=== PATIENT | male | born 1980 | race African-American/Black ===

== ENCOUNTER → 2017-12-09 | Day surgery (SDC) | payer OTHER ==
[~2017-12-09] MED LIST: FENTANYL CITRATE/PF 100MCG/2 ML INJ ONE; LIDOCAINE HCL 2% LOCAL INJ 5 ML SDV VIAL INJ ONE; PROPOFOL IV EMULSION 10 MG/ML 50 ML VIAL ONE
--- OUTSIDE RECORDS SUMMARY | 2017-12-09 11:19 | XMS REPORT | Clinical Summary ---
Author Author [facility] Organization [facility] [facility] Address Unknown Phone Unavailable Care Team Providers Care Cleaner Name Role Phone Faheem Staples MD PCP Allergies Active Allergy Reactions Severity Noted Date Comments Iodine 01/19/2017 Butorphanol Tartrate 05/09/2017 Current Medications Prescription Sig. Disp. Refills Start End Date Status Date traMADol (ULTRAM) 50 mg Take 1 tablet (50 mg 10 tablet 0 01/20/20 tablet total) by mouth every 6 17 17 (six) hours as needed for moderate pain for up to 5 days. cyclobenzaprine Take 1 tablet (10 mg 10 tablet 0 02/29/20 03/05/20 (FLEXERIL) 10 mg tablet total) by mouth 2 (two) 17 17 times a day as needed for muscle spasms for up to 5 days. ibuprofen (ADVIL,MOTRIN) Take 1 tablet (600 mg 15 tablet 0 02/29/20 03/05/20 600 MG tablet total) by mouth every 6 17 17 (six) hours as needed for mild pain for up to 5 days. ysdxxqejgs-kiurorn-nuyskc Take 1 capsule by mouth 20 capsule 0 04/18/20 ne (FIORINAL) 50-325-40 every 4 (four) hours as 17 17 mg per capsule needed for headaches for up to 5 days. clonAZEPAM (KlonoPIN) 0.5 Take 0.5 tablets (0.25 mg 10 tablet 0 07/27/20 MG tablet total) by mouth 2 (two) 17 17 times a day as needed for seizures for up to 5 days. ibuprofen (ADVIL,MOTRIN) Take 1 tablet (600 mg 40 tablet 0 09/27/20 10/27/19 600 MG tablet total) by mouth every 6 17 18 (six) hours as needed for mild pain for up to 30 days. azithromycin (ZITHROMAX) Take 250 mg by mouth 09/28/20 10/03/20 250 MG tablet daily. Take 2 tablets the 17 17 first day, then 1 tablet daily for 4 days. albuterol (PROAIR Inhale 1-2 puffs every 6 1 Inhaler 0 09/29/20 HFA,PROVENTIL (six) hours as needed for 17 18 HFA,VENTOLIN HFA) 90 wheezing for up to 30 mcg/actuation inhaler days. Active Problems Not on file Encounters Date Type Specialty Care Team Description 09/29/2017 Emergency Emergency Medicine Asim Dias, Difficulty breathing (Primary Dx) 09/27/2017 Emergency Emergency Medicine Triston Georges MD Pharyngitis, unspecified etiology (Primary Dx) 07/22/2017 Emergency Emergency Medicine Blaire Varghese, Dyspnea, unspecified type (Primary Dx) 06/07/2017 Emergency Emergency Medicine Kai Torres MD Zhang, Zhou, MD 05/09/2017 Emergency Emergency Medicine Stew León MD Palpitations (Primary Dx) 04/12/2017 Emergency Emergency Medicine Choco Finch, IRMA-Ignacia Headache, unspecified - Rolando eKy headache type (Primary 04/13/2017 MD Elva Dx) 02/28/2017 Emergency Emergency Medicine Kody Cloud MD Acute left-sided thoracic back pain (Primary Dx) 01/19/2017 Emergency Emergency Medicine Rolando Key Chest pain, unspecified MD Elva type (Primary Dx) after 12/08/2016 Social History Tobacco Use Types Packs/Day Years Used Date Former Smoker Cigarettes 8 Smokeless Tobacco: Never Used Alcohol Use Drinks/Week oz/Week Comments No Sex Assigned at Date Recorded Not on file Last Filed Vital Signs Vital Sign Reading Time Taken Blood Pressure 115/73 09/29/2017 3:00 AM TOOLROOM ATTENDANT Pulse 74 09/29/2017 3:00 AM TOOLROOM ATTENDANT Temperature 36.9 C (98.4 F) 09/29/2017 2:19 AM TOOLROOM ATTENDANT Respiratory Rate 16 09/29/2017 3:00 AM TOOLROOM ATTENDANT Oxygen Saturation 98% 09/29/2017 3:00 AM TOOLROOM ATTENDANT Inhaled Oxygen - - Concentration Weight 74.4 kg (164 lb) 09/27/2017 4:45 AM TOOLROOM ATTENDANT Height 172.7 cm (5' 8") 09/29/2017 2:19 AM TOOLROOM ATTENDANT Body Mass Index 24.94 09/27/2017 4:45 AM TOOLROOM ATTENDANT Plan of Treatment Health Maintenance Due Date Last Done Comments INFLUENZA VACCINE 05/06/2017 Results * ECG 12 lead (09/29/2017 2:21 AM) Only the most recent of 5 results within the time period is included. Component Value Ref Range Ventricular rate 90 Atrial rate 90 ME interval 174 QRSD interval 86 QT interval 344 QTC interval 420 P axis 1 73 QRS axis 1 53 T wave axis 44 EKG impression Normal sinus rhythm-Normal ECG-No previous ECGs available- Specimen Performing Laboratory [facility] [address] [place] [address] * ECG ED Preliminary Interpretation - NOT AN ORDER (07/22/2017 2:44 PM) Only the most recent of 3 results within the time period is included. Narrative Blaire Varghese DO 07/22/20172:44 PM ECG ED Preliminary Interpretation - Not an Order Performed by: BLAIRE VARGHESE Authorized by: BLAIRE VARGHESE ECG reviewed by ED Physician in the absence of a purchasing/receiving: yes Interpretation: Interpretation: normal Rate: ECG rate:89 ECG rate assessment: normal Rhythm: Rhythm: sinus rhythm Ectopy: Ectopy: none QRS: QRS axis:Normal Conduction: Conduction: normal ST segments: ST segments:Non-specific T waves: T waves: non-specific * XR Chest 2 Vw (05/09/2017 7:29 AM) Specimen Performing Laboratory [facility] [address] [place] [address] Narrative EXAMINATION: XR CHEST 2 VW CLINICAL HISTORY: Chest pain COMPARISON: Portable chest, obtained on 04/13/2017 at 0043 hours. FINDINGS: Cardiac and mediastinal silhouettes are within normal limits. There is no vascular congestion, pleural fluid, infiltrate or pneumothorax. Skeletal structures are normal. IMPRESSION: Normal chest. [id number] Procedure Note Hm Interface, Radiology Results Incoming - 05/09/2017 7:39 AM CDT EXAMINATION: XR CHEST 2 VW CLINICAL HISTORY: Chest pain COMPARISON: Portable chest, obtained on 04/13/2017 at 0043 hours. FINDINGS: Cardiac and mediastinal silhouettes are within normal limits. There is no vascular congestion, pleural fluid, infiltrate or pneumothorax. Skeletal structures are normal. IMPRESSION: Normal chest. [id number] * Influenza antigen (05/09/2017 7:03 AM) Component Value Ref Range Influenza antigen Negative for Influenza A/B antigen. Comment: Specimen Information Specimen Source: Nares Specimen Site: Right and left lobes Specimen Performing Laboratory Nares - Right and left [facility] DEPARTMENT OF PATHOLOGY AND GENOMIC MED[facility] [id number] [place] [address] [place] [address] * Estimated GFR (05/09/2017 7:00 AM) Only the most recent of 3 results within the time period is included. Component Value Ref Range GFR Non Af Amer 69 mL/min/1.73 m2 GFR Af Amer 83 mL/min/1.73 m2 Comment: Chronic kidney disease: <60 mL/min/1.73m2 Kidney failure: <15 mL/min/1.73m2 The estimated GFR is calculated from the IDMS-traceable Modification of Diet in Renal Disease Equation. The accuracy of the calculation is poor when the creatinine is normal. Calculated values >90 mL/min/1.73m2 are not reported. This equation has not been validated in children (<18 years), women, the elderly (>70 years), or ethnic groups other than Caucasians and Americans. Specimen Performing Laboratory Plasma specimen [facility] PATHOLOGY AND [employer] [address] [place] [address] * Troponin (05/09/2017 7:00 AM) Only the most recent of 3 results within the time period is included. Component Value Ref Range Troponin <0.300 0.000 - 0.300 ng/mL Comment: 0.30 - 1.49 ng/ml May indicate increased risk of acute coronary syndrome. >=1.5 ng/ml Consistent with acute myocardial infarction. The diagnostic value of a single normal or non-diagnostic result is questionable. Serial samples at 2-6 hour intervals are required to rule out acute myocardial injury. Specimen Performing Laboratory Plasma specimen [facility] DEPARTMENT PATHOLOGY AND [employer] [facility] [id number] [place] [address] [place] [address] * CBC with platelet and differential (05/09/2017 7:00 AM) Only the most recent of 3 results within the time period is included. Component Value Ref Range WBC 5.51 4.50 - 11.00 k/uL RBC 6.01 (H) 4.40 - 6.00 m/uL HGB 15.7 14.0 - 18.0 g/dL HCT 48.9 41.0 - 51.0 % MCV 81.4 (L) 82.0 - 100.0 fL MCH 26.1 (L) 27.0 - 34.0 pg MCHC 32.1 31.0 - 37.0 g/dL RDW - SD 39.1 37.0 - 55.0 fL MPV 10.5 8.8 - 13.2 fL Platelet count 261 150 - 400 k/uL Nucleated RBC 0.00 /100 WBC Neutrophils 42.7 39.0 - 69.0 % Lymphocytes 39.9 25.0 - 45.0 % Monocytes 12.5 (H) 0.0 - 10.0 % Eosinophils 4.2 0.0 - 5.0 % Basophils 0.5 0.0 - 1.0 % Immature granulocytes 0.2Comment: "Immature granulocytes" 0.0 - 1.0 % (promyelocytes, myelocytes, metamyelocytes) Specimen Performing Laboratory Blood [facility] DEPARTMENT OF PATHOLOGY AND GENOMIC MEDICINE [address] [place] [address] * Comprehensive metabolic panel (05/09/2017 7:00 AM) Only the most recent of 3 results within the time period is included. Component Value Ref Range Sodium 140 135 - 148 mEq/L Potassium 4.0 3.5 - 5.0 mEq/L Chloride 98 98 - 112 mEq/L CO2 26 24 - 31 mEq/L Anion gap 16 (H) 7 - 15 mEq/L Comment: Starting from January , anion gap calculation no longer incorporates potassium. Please note the change. BUN 16 6 - 20 mg/dL Creatinine 1.2 0.7 - 1.2 mg/dL Glucose 115 (H) 65 - 99 mg/dL Calcium 9.8 8.3 - 10.2 mg/dL Protein 8.4 (H) 6.3 - 8.3 g/dL Comment: [place] 4.6-7.0 g/dL 1 week 4.4-7.6 g/dL 7 months-1year 5.1-7.3 g/dL 1-2 years 5.6-7.5 g/dL >3 years 6.0-8.0 g/dL 18-150 6.3-8.3 g/dL Albumin 4.7 3.5 - 5.0 g/dL A/G ratio 1.3 0.7 - 3.8 Alkaline phosphatase 52 40 - 129 U/L AST 20 10 - 50 U/L ALT 14 5 - 50 U/L Total bilirubin 0.8 0.0 - 1.2 mg/dL Specimen Performing Laboratory Plasma specimen [facility] DEPARTMENT OF PATHOLOGY AND GENOMIC MEDICINE [address] [place] [address] * CT Head Wo Contrast (04/13/2017 1:07 AM) Specimen Performing Laboratory [facility] [address] [place] [address] Narrative EXAMINATION: CT HEAD WO CONTRAST CLINICAL HISTORY: headache COMPARISON:None. TECHNIQUE: Noncontrast enhanced images of the brain were obtained from the skull base to the vertex. Both soft tissue and bone reconstruction algorithms were performed. CT scans are performed using radiation dose reduction techniques (iterative reconstruction and/or automated exposure control). Technical factors are evaluated and adjusted to ensure appropriate moderation of exposure. Automated dose management technology is applied to adjust radiation exposure while achieving a diagnostic quality image. FINDINGS: The brain parenchyma is unremarkable. The hurtado-white matter differentiation is preserved. No evidence of acute intra or extra-axial hemorrhage, mass, mass effect or acute territorial infarction. There is no acute hydrocephalus. Basal cisterns are patent. No acute soft tissue hematoma or laceration. No skull fractures or aggressive bony lesions. Paranasal sinuses and mastoid air cells are clear. Orbits are normal. IMPRESSION: No acute intracranial abnormality identified. [facility]-[id number] Procedure Note Interface, Radiology Results Incoming - 04/13/2017 1:42 AM CDT EXAMINATION: CT HEAD WO CONTRAST CLINICAL HISTORY: headache COMPARISON: None. TECHNIQUE: Noncontrast enhanced images of the brain were obtained from the skull base to the vertex. Both soft tissue and bone reconstruction algorithms were performed. CT scans are performed using radiation dose reduction techniques (iterative reconstruction and/or automated exposure control). Technical factors are evaluated and adjusted to ensure appropriate moderation of exposure. Automated dose management technology is applied to adjust radiation exposure while achieving a diagnostic quality image. FINDINGS: The brain parenchyma is unremarkable. The hurtado-white matter differentiation is preserved. No evidence of acute intra or extra-axial hemorrhage, mass, mass effect or acute territorial infarction. There is no acute hydrocephalus. Basal cisterns are patent. No acute soft tissue hematoma or laceration. No skull fractures or aggressive bony lesions. Paranasal sinuses and mastoid air cells are clear. Orbits are normal. IMPRESSION: No acute intracranial abnormality identified. [facility]-[id number] * Urinalysis screen and microscopy, with reflex to culture (04/13/2017 1:00 AM) Only the most recent of 2 results within the time period is included. Component Value Ref Range Specimen site Clean catch Color, UA Yellow Appearance, UA Clear Specific gravity, UA 1.025 1.001 - 1.035 pH, UA 5.0 5.0 - 8.5 Protein, UA Negative Negative Glucose, UA Negative Negative Ketones, UA Negative Negative Bilirubin, UA Negative Negative Blood, UA Negative Negative Nitrite, UA Negative Negative Urobilinogen, UA 2.0 (A) <2.0 Leukocyte esterase, UA Negative Negative WBC, UA None seen 0 - 1 /HPF RBC, UA 0-5 0 - 1 /HPF Bacteria, UA None seen None seen Yeast, UA None seen Yeast with pseudohyphae, None seen UA Specimen Performing Laboratory Urine [facility] DEPARTMENT OF PATHOLOGY AND GENOMIC MEDICINE [address] [place] [address] * Urine drugs of abuse screen (04/13/2017 1:00 AM) Only the most recent of 2 results within the time period is included. Component Value Ref Range Amphetamine screen, urine Negative Methamphetamine screen, Negative urine Barbiturate screen, urine Negative Benzodiazepine screen, Negative urine Cocaine screen, urine Negative Methadone screen, urine Negative Opiates screen, urine Negative Phencyclidine screen, Negative urine Cannabinoid screen, urine Negative Tricyclic screen, urine Negative Comment: Drug screen minimum concentration of detectability Amphetamines 1000 ng/mL Methamphetamines 1000 ng/mL Barbiturates 300 ng/mL Benzodiazepines 300 ng/mL Cocaine 300 ng/mL Methadone 3 00 ng/mL Opiates 300 ng/mL Phencyclidine 25 ng/mL Cannabinoids 50 ng/mL Tricyclics 1000 ng/mL Negative test results indicates presumptive evidence of lack of clinically significant drug concentration in this urine specimen. Positive test results are presumptive evidence of clinically significant drug concentration in this urine specimen. Testing performed for medical purposes only. Specimen Performing Laboratory Urine [facility] DEPARTMENT OF PATHOLOGY AND GENOMIC MEDICINE [address] [place] [address] [place] [address] * Urine culture (04/13/2017 1:00 AM) Only the most recent of 2 results within the time period is included. Component Value Ref Range Urine culture SEE COMMENTComment: Bacteriuria screen negative. Specimen Performing Laboratory Urine [facility] DEPARTMENT OF PATHOLOGY AND GENOMIC MEDICINE [address] [place] [address] [place] [address] * XR Chest 1 Vw Portable (04/13/2017 12:48 AM) Only the most recent of 2 results within the time period is included. Specimen Performing Laboratory [facility] [address] [place] [address] Narrative EXAMINATION:XR CHEST 1 VW PORTABLE CLINICAL HISTORY:dizziness COMPARISON:01/19/2017 IMPRESSION: No consolidations, effusions, or pneumothorax.Cardiomediastinal silhouette is within normal limits.No acute osseous abnormalities. [id number] Procedure Note Hm Interface, Radiology Results Incoming - 04/13/2017 1:32 AM CDT EXAMINATION: XR CHEST 1 VW PORTABLE CLINICAL HISTORY: dizziness COMPARISON: 01/19/2017 IMPRESSION: No consolidations, effusions, or pneumothorax. Cardiomediastinal silhouette is within normal limits. No acute osseous abnormalities. [facility]-[id number] * Partial thromboplastin time, activated (04/13/2017 12:42 AM) Only the most recent of 2 results within the time period is included. Component Value Ref Range PTT 27.6 23.0 - 36.0 sec Comment: PTT therapeutic range for unfractionated heparin is 61.0-112.0 seconds which corresponds to Anti-Xa 0.3-0.7 U/ml. Specimen Performing Laboratory Blood [facility] DEPARTMENT OF PATHOLOGY AND [address] [address] * Prothrombin time with INR (04/13/2017 12:42 AM) Only the most recent of 2 results within the time period is included. Component Value Ref Range Prothrombin time 14.2 12.0 - 15.0 sec INR 1.1 Comment: The International Normalized Ratio (INR) is a therapeutic monitoring tool for patients who are stable on oral anticoagulant therapy. An INR of 2.0-3.0 is suggested for deep vein thrombosis/pulmonary embolism. Specimen Performing Laboratory Blood [facility] DEPARTMENT OF PATHOLOGY AND GENOMIC MEDICINE [address] [place] [address] [place] [address] * Magnesium level (04/13/2017 12:42 AM) Component Value Ref Range Magnesium 2.1 1.6 - 2.6 mg/dL Specimen Performing Laboratory Plasma specimen [facility] PATHOLOGY [address] [place] [address] * Creatine kinase, total (CPK) (04/13/2017 12:42 AM) Only the most recent of 2 results within the time period is included. Component Value Ref Range Creatine kinase 417 (H) 39 - 308 U/L Specimen Performing Laboratory Plasma specimen [address] [place] [address] * D-dimer (01/19/2017 9:46 PM) Component Value Ref Range D-dimer <0.27 0.00 - 0.40 ug/mL FEU Comment: Units are ug/ml Fibrinogen Equivalent Unit. When combined with low clinical probability, D-dimer results of less than 0.5 ug/ml FEU have a good negative predictive value in excluding PE or DVT. For D-dimer results greater than 0.5 ug/ml FEU further testing is indicated if PE or DVT is suspected clinically. Elevated D-dimer results have been reported in DVT, PE, and DIC cases and may indicate the presence of a clot. D-dimer results may be elevated due to old age, , inflammatory diseases, trauma, post-operative states, sepsis, and malignancies. Specimen Performing Laboratory Blood [facility] PATHOLOGY [address] [place] [address] * B natriuretic peptide (01/19/2017 9:27 PM) Component Value Ref Range BNP <5 0 - 100 pg/mL Specimen Performing Laboratory Blood [facility] DEPARTMENT PATHOLOGY AND [address] [place] [address] * Alcohol level, blood (01/19/2017 9:27 PM) Component Value Ref Range Alcohol None Detected mg/dL Comment: Normal None Detected Legal Intoxication in [place] 80 mg/dL (0.08%) - Whole Blood Toxic Concentration 200 mg/dL (0.2%) Potentially Fatal 350 - 500 mg/dL (0.35 - 0.5%) Alcohol percent None Detected % Specimen Performing Laboratory Plasma specimen [facility] DEPARTMENT PATHOLOGY [address] [place] [address] after 12/08/2016 Insurance Payer Benefit Subscriber ID Type Phone Address Plan / Group [employer] xxxxxxxxx HMO/PPO THCARE CHOICE/CHO ICE +
== END | disposition home or self-care (01) ==
LOC: OR 11:16
PROVIDERS: ATTEND Internal Medicine Gastroenterology
DX: K29.70 Gastritis, unspecified, without bleeding (principal); K44.9 Diaphragmatic hernia without obstruction or gangrene; K21.9 Gastro-esophageal reflux disease without esophagitis; K59.09 Other constipation; R63.4 Abnormal weight loss; R53.1 Weakness; F32.9 Major depressive disorder, single episode, unspecified; F41.9 Anxiety disorder, unspecified
CPT/HCPCS: 43239; J2001

== ENCOUNTER 2018-07-17 14:23 | Emergency (ER) | payer OTHER | END 2018-07-17 14:32 | disposition short-term general hospital (02) | LOC: FSED 14:23 | DX: K62.89 Other specified diseases of anus and rectum (principal) ==

== ENCOUNTER 2018-07-22 17:58 | Emergency (ER) | payer OTHER ==
[~2018-07-22] VITALS: Ht 177.8 cm; Wt 72.6 kg
--- OUTSIDE RECORDS SUMMARY | 2018-07-22 18:03 | XMS REPORT | Summary of Care ---
Author Organization Unknown Address Unknown Phone Unavailable Care Team Providers Care Garbage Collector Driver Name Role Phone NONE, None PCP Unavailable Encounter HQ Encntr_alias(FIN) [id number] Date(s): 04/03/15 - 04/03/15 [facility] [address] [place] [address]- Discharge Disposition: Non-Emergent Physician Attending: Rd Rodrigues MD Vital Signs Most recent to 1 oldest [Reference Range]: Height 172.72 cm (04/03/15 4:50 PM) Temperature Oral 97.9 DegF [96.4-99.1 DegF] (04/03/15 4:50 PM) Blood Pressure 120/78 mmHg [90-140/60-90 mmHg] (04/03/15 4:50 PM) Respiratory Rate 20 BRMIN [14-20 BRMIN] (04/03/15 4:50 PM) Peripheral Pulse 81 bpm Rate [60-100 bpm] (04/03/15 4:50 PM) Weight 81.818 kg (04/03/15 4:50 PM) Body Mass Index 27.43 m2 (04/03/15 4:50 PM) Problem List No data available for this section Allergies, Adverse Reactions, Alerts Substance Reaction Severity Status iodine Active Medications No data available for this section Results No data available for this section Immunizations No data available for this section Procedures Procedure Date Related Diagnosis Body Site Appendectomy Social History Social History Type Response Alcohol Never Smoking Status Former smoker; Exposure to Tobacco Smoke None; Cigarette Smoking Last 365 Days No; Reg Smoking Cessation Counseling No Assessment and Plan No data available for this section
--- OUTSIDE RECORDS SUMMARY | 2018-07-22 18:03 | XMS REPORT | Summary of Care ---
Author Author [facility] Organization [facility] Address Unknown Phone Unavailable Care Team Providers Care Technical Support Consultant Name Role Phone NONE, None PCP Unavailable Encounter [facility](ALLAN) [id number] Date(s): 11/17/15 - 11/17/15 [facility] [address] [place] [address]- Discharge Diagnosis: Atypical chest pain Discharge Disposition: Home Attending Physician: Diony Patel MD Vital Signs 1 2 3 Most recent to oldest [Reference Range]: 172.72 cm (11/17/15 6:51 PM) Height 98.0 DegF (11/17/15 6:51 PM) Temperature Oral [96.4-99.1 DegF] 127/84 mmHg (11/17/15 10:26 PM) 133/82 mmHg (11/17/15 9:00 PM) 127/80 mmHg (11/17/15 8:00 PM) Blood Pressure [90-140/60-90 mmHg] 18 BRMIN (11/17/15 10:26 PM) 18 BRMIN (11/17/15 9:00 PM) 18 BRMIN (11/17/15 8:00 PM) Respiratory Rate [14-20 BRMIN] 62 bpm (11/17/15 10:26 PM) 61 bpm (11/17/15 9:00 PM) 66 bpm (11/17/15 8:00 PM) Peripheral Pulse Rate [60-100 bpm] 84.091 kg (11/17/15 6:51 PM) Weight 28.19 m2 (11/17/15 6:51 PM) Body Mass Index Problem List Condition Effective Dates Status Health Status Informant Anxiety(Confirmed) Resolved Allergies, Adverse Reactions, Alerts Substance Reaction Severity Status iodine Active Medications aspirin 324 mg, 4 tab, Route: PO, Drug form: CHEWTAB, ONCE, Dosing Weight 84.091, kg, Pr iority: STAT, Start date: 11/17/15 18:57:00, Stop date: 11/17/15 18:57:00 Notes: Take with food. Start Date: 11/17/15 Stop Date: 11/17/15 Status: Completed Saline Flush 0.9% 10 mL, Route: IVP, Drug Form: INJ, Dosing Weight 84.091, kg, PRN, PRN Line Flush , Start date: 11/17/15 18:57:00, Duration: 30 day, Stop date: 12/17/15 19:56:00 Notes: (Same as: BD Posiflush) Start Date: 11/17/15 Stop Date: 11/17/15 Status: Discontinued Results ELECTROLYTES Most recent to 1 oldest [Reference Range]: Sodium Lvl [135-145 140 mEq/L mEq/L] (11/17/15 7:05 PM) Potassium Lvl 3.6 mEq/L [3.5-5.1 mEq/L] (11/17/15 7:05 PM) Chloride Lvl [95-109 105 mEq/L mEq/L] (11/17/15 7:05 PM) CO2 [24-32 mEq/L] 28 mEq/L (11/17/15 7:05 PM) AGAP [10.0-20.0 10.6 mEq/L mEq/L] (11/17/15 7:05 PM) CHEM PANEL Most recent to 1 oldest [Reference Range]: Creatinine Lvl 1.09 mg/dL [0.50-1.40 mg/dL] (11/17/15 7:05 PM) eGFR 103 mL/min/1.73m2 1 *NA* (11/17/15 7:05 PM) BUN [7-22 mg/dL] 16 mg/dL (11/17/15 7:05 PM) B/C Ratio [6-25] 15 (11/17/15 7:05 PM) Glucose Lvl [70-99 109 mg/dL mg/dL] *HI* (11/17/15 7:05 PM) Total Protein 7.7 g/dL [6.4-8.4 g/dL] (11/17/15 7:05 PM) Albumin Lvl [3.5-5.0 3.9 g/dL g/dL] (11/17/15 7:05 PM) Globulin [2.0-4.0 3.8 g/dL g/dL] (11/17/15 7:05 PM) A/G Ratio [0.7-1.6] 1.0 (11/17/15 7:05 PM) Calcium Lvl 9.0 mg/dL [8.5-10.5 mg/dL] (11/17/15 7:05 PM) ALT [0-65 unit/L] 39 unit/L (11/17/15 7:05 PM) AST [0-37 unit/L] 19 unit/L (11/17/15 7:05 PM) Alk Phos [39-136 54 unit/L unit/L] (11/17/15 7:05 PM) Bili Total [0.2-1.3 0.4 mg/dL mg/dL] (11/17/15 7:05 PM) 1Result Comment: The eGFR is calculated using the CKD-EPI formula. In most young, healthy individuals the eGFR will be >90 mL/min/1.73m2. The eGFR declines with age. An eGFR of 60-89 may be normal in some populations, particularly the elderly, for whom the CKD-EPI formula has not been extensively validated. Use of the eGFR is not recommended in the following populations: Individuals with unstable creatinine concentrations, including patients and those with serious co-morbid conditions. Patients with extremes in muscle mass or diet. The data above are obtained from the National Kidney Disease Education Program ( NKDEP) which additionally recommends that when the eGFR is used in patients with extremes of body mass index for purposes of drug dosing, the eGFR should be mul tiplied by the estimated BMI. CARDIAC ENZYMES Most recent to 1 oldest [Reference Range]: Total CK [12-191 274 unit/L unit/L] *HI* (11/17/15 7:05 PM) CK MB [0.5-3.6 1.6 ng/mL ng/mL] (11/17/15 7:05 PM) CK MB Index 0.6 [0.0-2.5] (11/17/15 7:05 PM) Troponin-I <0.02 ng/mL [0.00-0.40 ng/mL] (11/17/15 7:05 PM) URINE AND STOOL Most recent to 1 oldest [Reference Range]: UA Turbidity [Clear] Clear (11/17/15 10:08 PM) UA Color [Yellow] Yellow *NA* (11/17/15 10:08 PM) UA pH [5.0-8.0] 6.0 (11/17/15 10:08 PM) UA Spec Grav 1.020 [<=1.030] (11/17/15 10:08 PM) UA Glucose [Negative Negative mg/dL mg/dL] (11/17/15 10:08 PM) UA Blood [Negative] Negative (11/17/15 10:08 PM) UA Ketones [Negative Negative mg/dL mg/dL] *NA* (11/17/15 10:08 PM) UA Protein [Negative Negative mg/dL mg/dL] (11/17/15 10:08 PM) UA Urobilinogen 0.2 EU/dL [0.1-1.0 EU/dL] (11/17/15 10:08 PM) UA Bili [Negative] Negative *NA* (11/17/15 10:08 PM) UA Leuk Est Negative [Negative] (11/17/15 10:08 PM) UA Nitrite Negative [Negative] (11/17/15 10:08 PM) UA WBC [None Seen] None Seen (11/17/15 10:08 PM) UA RBC [0-2] None Seen (11/17/15 10:08 PM) UA Bacteria [None Occasional /HPF Seen /HPF] (11/17/15 10:08 PM) UA Sq Epi [Few] None Seen (11/17/15 10:08 PM) HEMATOLOGY Most recent to 1 oldest [Reference Range]: WBC [3.7-10.4 K/CMM] 7.3 K/CMM (11/17/15 7:05 PM) RBC [4.70-6.10 5.62 M/CMM M/CMM] (11/17/15 7:05 PM) Hgb [14.0-18.0 g/dL] 15.0 g/dL (11/17/15 7:05 PM) Hct [42.0-54.0 %] 45.7 % (11/17/15 7:05 PM) MCV [80.0-94.0 fL] 81.3 fL (11/17/15 7:05 PM) MCH [27.0-31.0 pg] 26.7 pg *LOW* (11/17/15 7:05 PM) MCHC [32.0-36.0 32.8 g/dL g/dL] (11/17/15 7:05 PM) RDW [11.5-14.5 %] 14.1 % (11/17/15 7:05 PM) Platelet [133-450 233 K/CMM K/CMM] (11/17/15 7:05 PM) MPV [7.4-10.4 fL] 8.9 fL (11/17/15 7:05 PM) Segs [45.0-75.0 %] 48.1 % (11/17/15 7:05 PM) Lymphocytes 28.3 % [20.0-40.0 %] (11/17/15 7:05 PM) Monocytes [2.0-12.0 14.5 % %] *HI* (11/17/15 7:05 PM) Eosinophils [0.0-4.0 8.2 % %] *HI* (11/17/15 7:05 PM) Basophils [0.0-1.0 0.9 % %] (11/17/15 7:05 PM) Segs-Bands # 3.5 K/CMM [1.5-8.1 K/CMM] (11/17/15 7:05 PM) Lymphocytes # 2.1 K/CMM [1.0-5.5 K/CMM] (11/17/15 7:05 PM) Monocytes # [0.0-0.8 1.1 K/CMM K/CMM] *HI* (11/17/15 7:05 PM) Eosinophils # 0.6 K/CMM [0.0-0.5 K/CMM] *HI* (11/17/15 7:05 PM) Basophils # [0.0-0.2 0.1 K/CMM K/CMM] (11/17/15 7:05 PM) Immunizations No data available for this section Procedures Procedure Date Related Diagnosis Body Site Appendectomy 2013 Social History Social History Type Response Substance Abuse Use: Past. Type: Marijuana. Recreational Drug Route: Inhaled. Alcohol Current, Type Beer. Frequency: 1-2 times per year. Previous treatment: None. Smoking Status Former smoker; Type: Cigarettes; Tobacco use per day: 10; Started at age: 16.0; Stopped at age: 32; Exposure to Tobacco Smoke None; Cigarette Smoking Last 365 Days No; Reg Smoking Cessation Counseling No Assessment and Plan No data available for this section
--- OUTSIDE RECORDS SUMMARY | 2018-07-22 18:03 | XMS REPORT | Summary of Care ---
Author Author [facility] Organization [facility] Address Unknown Phone Unavailable Care Team Providers Care Formation Testing Operator Name Role Phone NONE, None PCP Unavailable Encounter [facility](FIN) [id number] Date(s): 05/19/15 - 05/19/15 [facility] [address] [facility] [address], [place] [address] [phone] Discharge Diagnosis: Dehydration Discharge Diagnosis: Dizziness Discharge Disposition: Home Attending Physician: Blayne Cerrato MD Vital Signs 1 2 3 Most recent to oldest [Reference Range]: 172.72 cm (05/19/15 9:14 AM) Height 1 2 3 Most recent to oldest [Reference Range]: 97.2 DegF (05/19/15 11:35 AM) 96.7 DegF (05/19/15 9:14 AM) Temperature Oral [96.4-99.1 DegF] 1 2 3 Most recent to oldest [Reference Range]: 129/74 mmHg (05/19/15 11:35 AM) 137/81 mmHg (05/19/15 11:14 AM) 118/80 mmHg (05/19/15 9:52 AM) Blood Pressure [90-140/60-90 mmHg] 1 2 3 Most recent to oldest [Reference Range]: 20 BRMIN (05/19/15 11:35 AM) 18 BRMIN (05/19/15 11:14 AM) 18 BRMIN (05/19/15 9:52 AM) Respiratory Rate [14-20 BRMIN] 1 2 3 Most recent to oldest [Reference Range]: 58 bpm *LOW* (05/19/15 11:35 AM) 59 bpm *LOW* (05/19/15 11:14 AM) 62 bpm (05/19/15 9:52 AM) Peripheral Pulse Rate [60-100 bpm] 1 2 3 Most recent to oldest [Reference Range]: 82.841 kg (05/19/15 9:14 AM) Weight 1 2 3 Most recent to oldest [Reference Range]: 27.77 m2 (05/19/15 9:14 AM) Body Mass Index Problem List No data available for this section Allergies, Adverse Reactions, Alerts Substance Reaction Severity Status iodine Active Medications Saline Flush 0.9% 10 mL, Route: IVP, Drug Form: INJ, Dosing Weight 82.841, kg, PRN, PRN Line Flush , Start date: 05/19/15 9:22:00, Duration: 1 day, Stop date: 05/20/15 9:21:00 Notes: (Same as: BD Posiflush) Start Date: 05/19/15 Stop Date: 05/19/15 Status: Discontinued Sodium Chloride 0.9% (Bolus) IV 1,000 mL, 1000 ml/hr, Infuse Over: 1 hr, Route: IV, 1,000, Drug form: INJ, ONCE, Priority: STAT, Dosing Weight 82.841 kg, Start date: 05/19/15 9:22:00, Duration: 1 doses or times, Stop date: 05/19/15 9:22:00 Start Date: 05/19/15 Stop Date: 05/19/15 Status: Completed Results ELECTROLYTES Most recent to 1 oldest [Reference Range]: Sodium Lvl [135-145 141 mEq/L mEq/L] (05/19/15 9:27 AM) Potassium Lvl 4.0 mEq/L [3.5-5.1 mEq/L] (05/19/15 9:27 AM) Chloride Lvl [95-109 106 mEq/L mEq/L] (05/19/15 9:27 AM) CO2 [24-32 mEq/L] 30 mEq/L (05/19/15 9:27 AM) AGAP [10.0-20.0 9.0 mEq/L mEq/L] *LOW* (05/19/15 9:27 AM) CHEM PANEL Most recent to 1 oldest [Reference Range]: Creatinine Lvl 1.3 mg/dL [0.5-1.4 mg/dL] (05/19/15 9:27 AM) eGFR 83 mL/min/1.73m2 1 *NA* (05/19/15 9:27 AM) BUN [7-22 mg/dL] 12 mg/dL (05/19/15: AM) B/C Ratio [6-25] 9 (05/19/15 AM) Glucose Lvl [70-99 94 mg/dL mg/dL] (05/19/15 AM) Total Protein 7.7 g/dL [6.4-8.4 g/dL] (05/19/15 AM) Albumin Lvl [3.5-5.0 4.0 g/dL g/dL] (05/19/15 AM) Globulin [2.0-4.0 3.7 g/dL g/dL] (05/19/15 AM) A/G Ratio [0.7-1.6] 1.1 (05/19/15 AM) Calcium Lvl 8.9 mg/dL [8.5-10.5 mg/dL] (05/19/15 AM) Magnesium Lvl 1.8 mg/dL [1.8-2.4 mg/dL] (05/19/15 AM) ALT [0-65 unit/L] 27 unit/L (05/19/15 AM) AST [0-37 unit/L] 12 unit/L (05/19/15 AM) Alk Phos [39-136 47 unit/L unit/L] (05/19/15 AM) Bili Total [0.2-1.3 0.8 mg/dL mg/dL] (05/19/15 AM) 1Result Comment: The eGFR is calculated using [...] 1 oldest [Reference Range]: Total CK [12-191 177 unit/L unit/L] (05/19/15:27 AM) CK MB [0.5-3.6 1.8 ng/mL ng/mL] (05/19/15:27 AM) CK MB Index 1.0 [0.0-2.5] (05/19/15:27 AM) Troponin-I <0.02 ng/mL [0.00-0.40 ng/mL] (05/19/15:27 AM) proBNP [0-125 pg/mL] 13 pg/mL (05/19/15: AM) URINE AND STOOL Most recent to 1 oldest [Reference Range]: UA Turbidity [Clear] Clear (05/19/15:27 AM) UA Color STRAW *NA* (05/19/15:27 AM) UA pH [5.0-8.0] 6.0 (05/19/15:27 AM) UA Spec Grav 1.020 [<=1.030] (05/19/15:27 AM) UA Glucose Negative [Negative] (05/19/15:27 AM) UA Blood [Negative] Negative (05/19/15:27 AM) UA Ketones Negative [Negative] *NA* (05/19/15:27 AM) UA Protein Negative [Negative] (05/19/15:27 AM) UA Urobilinogen 0.2 EU/dL [0.1-1.0 EU/dL] (05/19/15:27 AM) UA Bili [Negative] Negative *NA* (05/19/15:27 AM) UA Leuk Est Negative [Negative] (05/19/15:27 AM) UA Nitrite Negative [Negative] (05/19/15:27 AM) UA WBC [None Seen] None Seen (05/19/15:27 AM) UA RBC [0-2] None Seen (05/19/15 9:27 AM) UA Bacteria [None None Seen Seen] (05/19/15:27 AM) UA Sq Epi [Few /LPF] Occasional /LPF (05/19/15: AM) IMMUNOLOGY Most recent to 1 oldest [Reference Range]: CDC HIV 4th GEN Negative [Negative] (05/19/15 AM) HEMATOLOGY Most recent to 1 oldest [Reference Range]: WBC [3.7-10.4 K/CMM] 5.8 K/CMM (05/19/15:27 AM) RBC [4.70-6.10 5.94 M/CMM M/CMM] (05/19/15: AM) Hgb [14.0-18.0 g/dL] 15.6 g/dL (05/19/15:27 AM) Hct [42.0-54.0 %] 48.8 % (05/19/15: AM) MCV [80.0-94.0 fL] 82.2 fL (05/19/15: AM) MCH [27.0-31.0 pg] 26.3 pg *LOW* (05/19/15 AM) MCHC [32.0-36.0 32.0 g/dL g/dL] (05/19/15 9:27 AM) RDW [11.5-14.5 %] 13.3 % (05/19/15: AM) Platelet [133-450 245 K/CMM K/CMM] (05/19/15:27 AM) MPV [7.4-10.4 fL] 9.3 fL (05/19/15 9:27 AM) Segs [45.0-75.0 %] 54.1 % (05/19/15:27 AM) Lymphocytes 25.5 % [20.0-40.0 %] (05/19/15:27 AM) Monocytes [2.0-12.0 10.4 % %] (05/19/15 9:27 AM) Eosinophils [0.0-4.0 6.8 % %] *HI* (05/19/15:27 AM) Basophils [0.0-1.0 1.2 % %] *HI* (05/19/15:27 AM) Segs-Bands # 3.1 K/CMM [1.5-8.1 K/CMM] (05/19/15 9:27 AM) Lymphocytes # 1.5 K/CMM [1.0-5.5 K/CMM] (05/19/15 9:27 AM) Monocytes # [0.0-0.8 0.6 K/CMM K/CMM] (05/19/15 9:27 AM) Eosinophils # 0.4 K/CMM [0.0-0.5 K/CMM] (05/19/15 9:27 AM) Basophils # [0.0-0.2 0.2 K/CMM K/CMM] (05/19/15 9:27 AM) Immunizations No data available for this section [...]
--- OUTSIDE RECORDS SUMMARY | 2018-07-22 18:03 | XMS REPORT | Continuity of Care Document ---
Author Author [facility] Interface Address Unknown Phone Unavailable Problems Problem Status Onset Date Classification Date Reported Comments Source URINARY SYMPTOMS Active 07/16/2018 [facility] CHEST PAIN Active 03/31/2018 [facility] Palpitation 03/31/2018 04/03/2018 [facility] Strain of muscle and tendon(s) of anterior muscle group at lower leg level, right leg, initial encounter 03/02/2018 03/05/2018 [facility] Prehypertension 03/02/2018 03/05/2018 [facility] LEG PAIN Active 03/02/2018 [facility] Pain in right lower leg 12/03/2017 03/02/2018 [facility] LEG INJURY/PAIN Active 11/24/2017 [facility] Discharge Diagnosis: Acute leg pain 06/23/2017 06/26/2017 [facility] Discharge Diagnosis: Back pain 02/20/2017 02/23/2017 [facility] BACK PAIN Active 02/20/2017 [facility] Discharge Diagnosis: Other chest pain 12/16/2016 12/19/2016 [facility] Discharge Diagnosis: Dyspnea, unspecified 12/16/2016 12/19/2016 [facility] SOB Active 12/16/2016 [facility] Discharge Diagnosis: Syncope, near 10/10/2016 10/13/2016 [facility] WEAKNESS Active 10/10/2016 [facility] DIZZINESS, [place] Active 05/27/2016 [facility] Discharge Diagnosis: Abdominal pain in male 05/27/2016 05/30/2016 [facility] Discharge Diagnosis: Cough 05/22/2016 05/25/2016 [facility] Discharge Diagnosis: Acute sinusitis 05/22/2016 05/25/2016 [facility] CP Active 05/22/2016 [facility] Discharge Diagnosis: Acute epigastric pain 02/03/2016 02/06/2016 [facility] ABD PAIN Active 02/03/2016 [facility] ABDOMINAL PAIN Active 01/05/2016 [facility] Discharge Diagnosis: Palpitations 12/10/2015 12/13/2015 [facility] SOB/ CHEST PRESSURE Active 12/09/2015 [facility] RIGHT LEG PAIN Active 11/24/2015 [facility] Discharge Diagnosis: Acute leg pain 11/24/2015 11/27/2015 [facility] Discharge Diagnosis: Atypical chest pain 11/17/2015 11/20/2015 [facility] HEADACHE Active 10/30/2015 [facility] Discharge Diagnosis: Headache 10/30/2015 11/02/2015 [facility] Discharge Diagnosis: Eustachian tube dysfunction 10/30/2015 11/02/2015 [facility] Discharge Diagnosis: Chest pain, unspecified 08/20/2015 08/23/2015 [facility] Discharge Diagnosis: Wheezing 05/25/2015 05/28/2015 [facility] Discharge Diagnosis: Calf pain 05/25/2015 05/28/2015 [facility] LEG PAIN/SHORTNESS OF BREATH Active 05/25/2015 [facility] Discharge Diagnosis: Dehydration 05/19/2015 05/22/2015 [facility] Discharge Diagnosis: Dizziness 05/19/2015 05/22/2015 [facility] Discharge Diagnosis: Syncope 01/11/2015 01/13/2015 [facility] Discharge Diagnosis: Abdominal pain of unknown etiology 01/11/2015 01/13/2015 [facility] SYNCOPE Active 01/11/2015 [facility] CHEST PAINS Active 11/17/2014 [facility] Discharge Diagnosis: Atypical chest pain 05/01/2014 05/03/2014 [facility] Discharge Diagnosis: Hypertension 05/01/2014 05/03/2014 [facility] Anxiety Resolved Problem 04/03/2018 [facility] Pain in left lower leg 03/02/2018 [facility] Medications Medication Details Route Status Patient Instructions Ordering Provider Order Date Source Acetaminophen 325 MG / Hydrocodone Bitartrate 10 MG Oral Tablet [[place] 10/325] 1 tab, Route: PO, Dosing Weight 75, kg, ONCE, Start date: 06/23/17 10:39:00 CDT, Stop date: 06/23/17 10:39:00 CDT Inactive 06/23/2017 [facility] Acetaminophen 300 MG / Codeine Phosphate 30 MG Oral Tablet [Tylenol with Codeine #3] 1 - 2 tab, PO, Q4H, PRN Pain, X 3 day, # 15 tab, 0 Refill(s) Active 02/20/2017 [facility] Cyclobenzaprine hydrochloride 10 MG Oral Tablet [Flexeril] 10 mg, PO, TID, PRN Muscle Spasm, X 5 day, # 20 tab, 0 Refill(s) Active 02/20/2017 [facility] Motrin 600 mg, Route: PO, Drug form: TAB, ONCE, Dosing Weight 78.182, kg, Priority: STAT, Start date: 02/20/17 9:22:00 CDT, Stop date: 02/20/17 9:22:00 CDT Inactive 02/20/2017 [facility] Flexeril 10 mg, Route: PO, ONCE, Dosing Weight 78.182, kg, Priority: STAT, Start date: 02/20/17 9:00:00 CDT, Stop date: 02/20/17 9:00:00 CDT Inactive 02/20/2017 [facility] Acetaminophen 325 MG / Hydrocodone Bitartrate 10 MG Oral Tablet [[place] 10/325] 1 tab, Route: PO, Dosing Weight 78.182, kg, ONCE, Start date: 02/20/17 9:00:00 CDT, Stop date: 02/20/17 9:00:00 CDT Inactive 02/20/2017 [facility] Ketorolac 60 mg, Route: IM, Drug form: INJ, ONCE, Dosing Weight 78.182, kg, Priority: STAT, Start date: 02/20/17 9:00:00 CDT, Stop date: 02/20/17 9:00:00 CDT Inactive 02/20/2017 [facility] Sodium Chloride 0.154 MEQ/ML Injectable Solution 1,000 mL, Infuse Over: 1 hr, Route: IV, ONCE, Priority: STAT, Dosing Weight 80.909 kg, Start date: 12/16/16 12:05:00 CDT, Duration: 1 doses or times, Stop date: 12/16/16 12:05:00 CDT Inactive 12/16/2016 [facility] Saline Flush 0.9% 10 mL, Route: IVP, Drug Form: INJ, Dosing Weight 80.909, kg, PRN, PRN Line Flush, Start date: 12/16/16 12:05:00 CDT, Duration: 30 day, Stop date: 01/15/17 12:04:00 CDTNotes: (Same as: BD Posiflush) Inactive 12/16/2016 [facility] Saline Flush 0.9% 10 mL, Route: IVP, Drug Form: INJ, Dosing Weight 80, kg, PRN, PRN Line Flush, Start date: 10/10/16 12:04:00 TRANSMISSION ENGINEER, Duration: 30 day, Stop date: 11/09/16 12:03:00 CSTNotes: Same as: BD Posiflush Sterile Inactive 10/10/2016 [facility] Sodium Chloride 0.154 MEQ/ML Injectable Solution 1,000 mL, Rate: 1,000 ml/hr, Infuse over: 1 hr, Route: IV, Dosing Weight 79.091 kg, Total Volume: 1,000, Start date: 05/27/16 8:13:00 CDT, Duration: 1 doses or times, Stop date: 05/27/16 9:12:00 CDT Inactive 05/27/2016 [facility] Ondansetron 4 mg, Route: IVP, ONCE, Dosing Weight 79.091, kg, Priority: STAT, Start date: 05/27/16 8:13:00 CDT, Stop date: 05/27/16 8:13:00 CDT Inactive 05/27/2016 [facility] GI cocktail 30 mL, Route: PO, Dosing Weight 79.091, kg, ONCE, STAT, Start date: 05/27/16 8:13:00 CDT, Stop date: 05/27/16 8:13:00 CDT Inactive 05/27/2016 [facility] amoxicillin 875 mg oral tablet 875 mg=1 tab, PO, Q12H, X 10 day, # 20 tab, 0 Refill(s) Active 05/22/2016 [facility] Sodium Chloride 0.154 MEQ/ML Injectable Solution 500 mL, 500 ml/hr, Infuse Over: 1 hr, Route: IV, 500, Drug form: INJ, ONCE, Priority: STAT, Dosing Weight 85 kg, Start date: 02/03/16 16:50:00 CDT, Duration: 1 doses or times, Stop date: 02/03/16 16:50:00 CDT Inactive 02/03/2016 [facility] Ondansetron 4 mg, 2 mL, Route: IVP, Drug form: INJ, ONCE, Dosing Weight 85, kg, Priority: STAT, Start date: 02/03/16 16:50:00 CDT, Stop date: 02/03/16 16:50:00 CDTNotes: (Same as: Jesús) MEDICATION WASTE Product Size: 4 mg Product Wasted: ___ mg Inactive 02/03/2016 [facility] Morphine 2 mg, 1 mL, Route: IVP, Drug form: INJ, ONCE, Dosing Weight 85, kg, Priority: STAT, Start date: 02/03/16 16:50:00 CDT, Stop date: 02/03/16 16:50:00 CDTNotes: (Same as:MORPhine Sulfate) Inactive 02/03/2016 [facility] Saline Flush 0.9% 10 mL, Route: IVP, Drug Form: INJ, Dosing Weight 85, kg, PRN, PRN Line Flush, Start date: 02/03/16 16:50:00 CDT, Duration: 1 day, Stop date: 02/04/16 16:49:00 CDTNotes: (Same as: BD Posiflush) Inactive 02/03/2016 [facility] Aspirin 324 mg, 4 tab, Route: CHEW, Drug form: CHEWTAB, ONCE, Dosing Weight 81.818, kg, Priority: STAT, Start date: 12/10/15 3:26:00, Stop date: 12/10/15 3:26:00Notes: Take with food. Inactive 12/10/2015 [facility] naproxen 500 mg oral tablet 500 mg, PO, BID, PRN Pain, # 30 tab, 0 Refill(s) Active 11/25/2015 [facility] Motrin 800 mg, 2 tab, Route: PO, Drug form: TAB, ONCE, Dosing Weight 83.807, kg, Priority: STAT, Start date: 11/24/15 19:21:00, Stop date: 11/24/15 19:21:00Notes: (Same as: Motrin) "Do Not Crush" Give with food. Inactive 11/25/2015 [facility] Aspirin 324 mg, 4 tab, Route: PO, Drug form: CHEWTAB, ONCE, Dosing Weight 84.091, kg, Priority: STAT, Start date: 11/17/15 18:57:00, Stop date: 11/17/15 18:57:00Notes: Take with food. Inactive 11/18/2015 [facility] Saline Flush 0.9% 10 mL, Route: IVP, Drug Form: INJ, Dosing Weight 84.091, kg, PRN, PRN Line Flush, Start date: 11/17/15 18:57:00, Duration: 30 day, Stop date: 12/17/15 19:56:00Notes: (Same as: BD Posiflush) Inactive 11/18/2015 [facility] Flonase 0.05 mg/inh nasal spray 2 spray, NASAL, BID, # 16 gm, 0 Refill(s) Active 10/31/2015 [facility] 12 HR Pseudoephedrine Hydrochloride 120 MG Extended Release Tablet [Sudafed] 120 mg=1 tab, PO, Q12H, PRN Congestion, X 10 day, # 20 tab, 0 Refill(s) Active 10/31/2015 [facility] Dexamethasone 10 mg, 1 mL, Route: IM, Drug form: SOLN, ONCE, Dosing Weight 81.591, kg, Priority: STAT, Start date: 10/30/15 21:43:00, Stop date: 10/30/15 21:43:00Notes: dexamethasone 10 mg/1 ml VL INJ PF ME DICATION WASTE Product Size: 10 mg Product Wasted: ___ mg Inactive 10/31/2015 [facility] Sodium Chloride 0.154 MEQ/ML Injectable Solution 1,000 mL, 1,000 ml/hr, Infuse Over: 1 hr, Route: IV, 1,000, Drug form: INJ, ONCE, Priority: STAT, Dosing Weight 81.364 kg, Start date: 10/30/15 15:33:00, Duration: 1 doses or times, Stop date: 10/30/15 15:33:00 Inactive 10/30/2015 [facility] Reglan 10 mg, 2 mL, Route: IVP, Drug form: INJ, ONCE, Dosing Weight 81.364, kg, Start date: 10/30/15 15:33:00, Stop date: 10/30/15 15:33:00Notes: (Same as: Reglan) Inactive 10/30/2015 [facility] Benadryl 25 mg, 0.5 mL, Route: IVP, Drug form: INJ, ONCE, Dosing Weight 81.364, kg, Start date: 10/30/15 15:33:00, Stop date: 10/30/15 15:33:00Notes: (Same as: Benadryl) Inactive 10/30/2015 [facility] Saline Flush 0.9% 10 mL, Route: IVP, Drug Form: INJ, Dosing Weight 81.364, kg, PRN, PRN Line Flush, Start date: 08/20/15 1:01:00, Duration: 30 day, Stop date: 09/19/15 1:00:00Notes: (Same as: BD Posiflush) Inactive 08/20/2015 [facility] Ibuprofen 800 mg, Route: PO, Drug form: TAB, ONCE, Dosing Weight 80.455, kg, Priority: STAT, Start date: 05/25/15 11:48:00, Stop date: 05/25/15 11:48:00 Inactive 05/25/2015 [facility] 200 ACTUAT Albuterol 0.09 MG/ACTUAT Metered Dose Inhaler [Proventil] 2 puff, INHALER, Q4H, PRN wheezing, coughing, or shortness of breath, # 1 ea, 1 Refill(s) Active 05/25/2015 [facility] Sodium Chloride 0.154 MEQ/ML Injectable Solution 1,000 mL, 1000 ml/hr, Infuse Over: 1 hr, Route: IV, 1,000, Drug form: INJ, ONCE, Priority: STAT, Dosing Weight 82.841 kg, Start date: 05/19/15 9:22:00, Duration: 1 doses or times, Stop date: 05/19/15 9:22:00 Inactive 05/19/2015 [facility] Saline Flush 0.9% 10 mL, Route: IVP, Drug Form: INJ, Dosing Weight 82.841, kg, PRN, PRN Line Flush, Start date: 05/19/15 9:22:00, Duration: 1 day, Stop date: 05/20/15 9:21:00Notes: (Same as: BD Posiflush) Inactive 05/19/2015 [facility] Saline Flush 0.9% 10 mL, Route: IVP, Drug Form: INJ, Dosing Weight 81.818, kg, PRN, PRN Line Flush, Start date: 01/11/15 11:30:00, Duration: 30 day, Stop date: 02/10/15 11:29:00Notes: (Same as: BD Posiflush) Inactive 01/11/2015 [facility] Saline Flush 0.9% 5 mL, Route: IVP, Drug Form: INJ, Dosing Weight 79.545, kg, Q8H, PRN Line Flush, Start date: 05/01/14 5:05:00, Duration: 1 doses or times, Stop date: Limited # of times, Administer at least once every 8 hoursSpecial Instructions: Administer at least once every 8 hoursNotes: (Same as: BD Posiflush) Inactive 05/01/2014 [facility] Allergies, Adverse Reactions, Alerts Substance Category Reaction Severity Reaction type Status Date Reported Comments Source iodine Assertion Drug allergy Active [facility] Toradol Assertion Drug allergy Active [facility] Stadol Assertion Drug allergy Active [facility] Immunizations Immunization Date Given Site Status Last Updated Comments Source Results Order Name Results Value Reference Range Date Interpretation Comments Source DRUG SCREEN U Phencyc Scr Negative *NA* (03/31/18 11:08 AM) Negative 03/31/2018 [facility] DRUG SCREEN U Cannab Scr Negative *NA* (03/31/18 11:08 AM) Negative 03/31/2018 [facility] DRUG SCREEN U Cocaine Scr Negative *NA* (03/31/18 11:08 AM) Negative 03/31/2018 [facility] DRUG SCREEN UDS Note See Note (03/31/18 11:08 AM) 03/31/2018 [facility] DRUG SCREEN U Opiate Scr Negative *NA* (03/31/18 11:08 AM) Negative 03/31/2018 [facility] DRUG SCREEN U Benzodia Scr Negative *NA* (03/31/18 11:08 AM) Negative 03/31/2018 [facility] DRUG SCREEN U Amph Scr Negative *NA* (03/31/18 11:08 AM) Negative 03/31/2018 [facility] DRUG SCREEN U Elma Scr Negative *NA* (03/31/18 11:08 AM) Negative 03/31/2018 [facility] URINE AND STOOL UA Sq Epi None Seen 03/31/2018 [facility] URINE AND STOOL UA Mucus Few /LPF None Seen /LPF 03/31/2018 [facility] URINE AND STOOL UA Ketones Negative mg/dL Negative mg/dL 03/31/2018 [facility] URINE AND STOOL UA Bili Negative *NA* (03/31/18 11:08 AM) Negative 03/31/2018 [facility] URINE AND STOOL UA Glucose Negative mg/dL Negative mg/dL 03/31/2018 [facility] URINE AND STOOL UA Blood Negative (03/31/18 11:08 AM) Negative 03/31/2018 [facility] URINE AND STOOL UA Urobilinogen 2.0 mg/dL 0.1 - 1.0 03/31/2018 [facility] URINE AND STOOL UA Leuk Est Negative (03/31/18 11:08 AM) Negative 03/31/2018 [facility] URINE AND STOOL UA WBC null 0 - 5 03/31/2018 [facility] URINE AND STOOL UA RBC 1 /HPF 0 - 2 03/31/2018 [facility] URINE AND STOOL UA Nitrite Negative (03/31/18 11:08 AM) Negative 03/31/2018 [facility] URINE AND STOOL UA Color Yellow *NA* (03/31/18 11:08 AM) Yellow 03/31/2018 [facility] URINE AND STOOL UA Turbidity Clear (03/31/18 11:08 AM) Clear 03/31/2018 [facility] URINE AND STOOL UA Spec Grav 1.025 <=1.030 03/31/2018 [facility] URINE AND STOOL UA Protein Negative mg/dL Negative mg/dL 03/31/2018 [facility] URINE AND STOOL UA pH 7.0 5.0 - 8.0 03/31/2018 [facility] CARDIAC ENZYMES CK MB Index 0.4 0.0 - 2.5 03/31/2018 [facility] CARDIAC ENZYMES CK MB 3.0 ng/mL 0.5 - 3.6 03/31/2018 [facility] CARDIAC ENZYMES Total CK 693 unit/L 12 - 191 03/31/2018 [facility] CARDIAC ENZYMES Troponin-I null 0.00 - 0.40 03/31/2018 [facility] CHEM PANEL A/G Ratio 1.1 0.7 - 1.6 03/31/2018 [facility] CHEM PANEL Globulin 3.8 g/dL 2.7 - 4.2 03/31/2018 [facility] CHEM PANEL B/C Ratio 8 6 - 25 03/31/2018 [facility] CHEM PANEL AGAP 12.6 meq/L 10.0 - 20.0 03/31/2018 [facility] CHEM PANEL eGFR 70 mL/min/1.73m2 03/31/2018 Result Comment: The eGFR is calculated using the [...] from the National Kidney Disease Education Program (NKDEP) which additionally recommends that when the eGFR is used in patients with extremes of body mass index for purposes of drug dosing, the eGFR should be multiplied by the estimated BMI. [facility] CHEM PANEL Sodium Lvl 143 meq/L 135 - 145 03/31/2018 [facility] CHEM PANEL Potassium Lvl 3.6 meq/L 3.5 - 5.1 03/31/2018 [facility] CHEM PANEL Chloride Lvl 108 meq/L 95 - 109 03/31/2018 [facility] CHEM PANEL Creatinine Lvl 1.31 mg/dL 0.50 - 1.40 03/31/2018 [facility] CHEM PANEL BUN 11 mg/dL 7 - 22 03/31/2018 [facility] CHEM PANEL Bili Total 1.2 mg/dL 0.2 - 1.3 03/31/2018 [facility] CHEM PANEL Alk Phos 53 unit/L 39 - 136 03/31/2018 [facility] CHEM PANEL AST 25 unit/L 0 - 37 03/31/2018 [facility] CHEM PANEL ALT 27 unit/L 0 - 65 03/31/2018 [facility] CHEM PANEL Albumin Lvl 4.3 g/dL 3.5 - 5.0 03/31/2018 [facility] CHEM PANEL Total Protein 8.1 g/dL 6.4 - 8.4 03/31/2018 [facility] CHEM PANEL CO2 26 meq/L 24 - 32 03/31/2018 [facility] CHEM PANEL Calcium Lvl 8.8 mg/dL 8.5 - 10.5 03/31/2018 [facility] CHEM PANEL Glucose Lvl 96 mg/dL 70 - 99 03/31/2018 [facility] CHEM PANEL Magnesium Lvl 2.0 mg/dL 1.8 - 2.4 03/31/2018 [facility] HEMATOLOGY Monocytes # 0.6 K/CMM 0.0 - 0.8 03/31/2018 [facility] HEMATOLOGY Segs-Bands # 3.8 K/CMM 1.5 - 8.1 03/31/2018 [facility] HEMATOLOGY Lymphocytes # 1.3 K/CMM 1.0 - 5.5 03/31/2018 [facility] HEMATOLOGY Eosinophils # 0.2 K/CMM 0.0 - 0.5 03/31/2018 [facility] HEMATOLOGY Monocytes 10.1 % 2.0 - 12.0 03/31/2018 [facility] HEMATOLOGY Eosinophils 2.6 % 0.0 - 4.0 03/31/2018 [facility] Basophils 0.5 % 0.0 - 1.0 03/31/2018 [facility] Segs 65.1 % 45.0 - 75.0 03/31/2018 [facility] Lymphocytes 21.7 % 20.0 - 40.0 03/31/2018 [facility] INR 1.11 0.85 - 1.17 03/31/2018 [facility] PT 14.3 s 12.0 - 14.7 03/31/2018 [facility] PTT 27.3 s 22.9 - 35.8 03/31/2018 [facility] RDW 14.4 % 11.5 - 14.5 03/31/2018 [facility] MPV 9.4 fL 7.4 - 10.4 03/31/2018 [facility] Platelet 246 K/CMM 133 - 450 03/31/2018 [facility] Hgb 15.6 g/dL 14.0 - 18.0 03/31/2018 [facility] RBC 5.85 M/CMM 4.70 - 6.10 03/31/2018 [facility] WBC 5.8 K/CMM 3.7 - 10.4 03/31/2018 [facility] Hct 47.7 % 42.0 - 54.0 03/31/2018 [facility] MCH 26.7 pg 27.0 - 31.0 03/31/2018 [facility] MCV 81.6 fL 80.0 - 94.0 03/31/2018 [facility] MCHC 32.7 g/dL 32.0 - 36.0 03/31/2018 [facility] Chest 1view DX Chest 1view DX Patient Name: ABDIAZIZ ABRAMS : 1980 Age: 37 years, Male MR: [id number] Study: Chest 1view DX 03/31/2018 10:43 AM CDT Examination: Chest, PA. Indication: Palpitations Clinical information: - palpitations. Comparison: Chest PA 02/20/2017 Findings: Lines/tubes: None. Heart: Normal cardiac silhouette. Vessels: The pulmonary vasculature is within normal limits. Mediastinum: No mediastinal or hilar mass or lymphadenopathy. Lungs: No parenchymal mass. No focal consolidation. Pleura: No pleural effusion. No pneumothorax. Soft tissues: Normal. No axillary mass or lymphadenopathy. Bones: No acute osseous abnormality. IMPRESSION: No acute radiographic abnormality. SL: [id number] 03/31/2018 - - Read by: Bharathi Nichols MD Dictated Date/time: 03/31/18 11:13 Electronically Signed by: Bharathi Nichols MD 03/31/18 11:13 FINAL REPORT [facility] Lower Venous Doppler Unilat US Ext Lower Venous Doppler Unilat US PROCEDURE: UNILATERAL RIGHT LOWER EXTREMITY DOPPLER VENOUS ULTRASOUND INDICATION: Right knee and leg pain for the past day. COMPARISON: 11/24/2015 Doppler venous ultrasound right lower extremity. TECHNIQUE: Sonographic evaluation of the unilateral right lower extremity veins was performed using high resolution B-mode, pulse and color Doppler imaging. FINDINGS: RIGHT: The common femoral, femoral, popliteal and visualized calf veins are patent. Normal venous waveforms. The saphenofemoral junction is unremarkable. IMPRESSION: No deep venous thrombosis. END IMPRESSION SL: [id number] 03/02/2018 - - Read by: Blayne Musa MD Dictated Date/time: 03/02/18 17:25 Electronically Signed by: Blayne Musa MD 03/02/18 17:26 FINAL REPORT [facility] Tibia fibula series DX Tibia fibula series DX Tibia fibula series DX CLINICAL HISTORY: - pain in right anterior tibia, right lower leg pain, denies injury. woke with pain this am. FINDINGS/IMPRESSION: 2 views of the right tibia and fibula reveal no evidence for fracture or dislocation. The alignment is anatomic. No significant soft tissue abnormality is noted. No radiopaque foreign body is visualized. The visualized bones demonstrate normal radiodensity. SL: [id number] 03/02/2018 - - Read by: Scott Chance MD Dictated Date/time: 03/02/18 16:51 Electronically Signed by: Scott Chance MD 03/02/18 16:51 FINAL REPORT [facility] Ext Lower Venous Doppler Unilat US Ext Lower Venous Doppler Unilat US EXAM: Left lower extremity venous Doppler ultrasound HISTORY: Left lower extremity pain COMPARISON: None TECHNIQUE: Sonographic evaluation of the left lower extremity deep veins performed using high resolution B-mode imaging, along with pulse and color Doppler imaging. FINDINGS: The common femoral, femoral and popliteal veins and greater saphenous vein are patent. IMPRESSION: No deep vein thrombosis is seen in the left lower extremity. SL: [id number] 06/23/2017 - - Read by: Pedro Angel MD Dictated Date/time: 06/23/17 11:58 Electronically Signed by: Pedro Angel MD 06/23/17 11:59 FINAL REPORT [facility] URINE AND STOOL UA Sq Epi None Seen 02/20/2017 [facility] URINE AND STOOL UA Color Ltyellow 02/20/2017 [facility] URINE AND STOOL UA Urobilinogen <=1.0 mg/dL 0.1 - 1.0 02/20/2017 [facility] URINE AND STOOL UA Leuk Est Negative (02/20/17 9:52 AM) Negative 02/20/2017 [facility] URINE AND STOOL UA RBC 1 /HPF 0 - 2 02/20/2017 [facility] URINE AND STOOL UA WBC null 0 - 5 02/20/2017 [facility] URINE AND STOOL UA Nitrite Negative (02/20/17 9:52 AM) Negative 02/20/2017 [facility] URINE AND STOOL UA Blood Negative (02/20/17 9:52 AM) Negative 02/20/2017 [facility] URINE AND STOOL UA Glucose Negative mg/dL Negative mg/dL 02/20/2017 [facility] URINE AND STOOL UA Bili Negative *NA* (02/20/17 9:52 AM) Negative 02/20/2017 [facility] URINE AND STOOL UA Ketones Negative mg/dL Negative mg/dL 02/20/2017 [facility] URINE AND STOOL UA pH 6.0 5.0 - 8.0 02/20/2017 [facility] URINE AND STOOL UA Protein Negative mg/dL Negative mg/dL 02/20/2017 [facility] URINE AND STOOL UA Spec Grav 1.019 <=1.030 02/20/2017 [facility] URINE AND STOOL UA Turbidity Clear (02/20/17 9:52 AM) Clear 02/20/2017 [facility] Chest 2 views DX Chest 2 views DX Patient Name: ABDIAZIZ ABRAMS : 1980; Age: 36 years y/o Male MR: [id number] * CHEST, 2 views HISTORY: Shortness of Breath - dyspnea COMPARISON: 12/16/2016. Studies of 10/10/2016 and 04/03/2015 were reviewed. TECHNIQUE: Frontal and lateral radiographs of the chest were obtained. FINDINGS: The lungs are clear. There are no pleural effusions. The heart and pulmonary vasculature are within normal limits. The regional skeleton is unremarkable. IMPRESSION: 1. No active disease. SL: [id number] 02/20/2017 - - Read by: Ajit Pinto MD Dictated Date/time: 02/20/17 10:14 Electronically Signed by: Ajit Pinto MD 02/20/17 10:16 FINAL REPORT [facility] Spine lumbar 2 or 3 views DX Spine lumbar 2 or 3 views DX Spine lumbar 2 or 3 views DX COMPARISON: None CLINICAL HISTORY: Pain, Lumbar region - back pain; FINDINGS: 3 views of the lumbar spine are submitted for review. 5 nonrib-bearing lumbar-type vertebra are visualized. Visualized bones demonstrate normal radiodensity. There is no evidence for fracture or subluxation. No significant spondylosis or degenerative disc disease is noted. The SI joints demonstrate normal morphology. IMPRESSION: No evidence for fracture or subluxation. SL: [id number] 02/20/2017 - - Read by: Scott Chance MD Dictated Date/time: 02/20/17 10:38 Electronically Signed by: Scott Chance MD 02/20/17 10:39 FINAL REPORT [facility] CARDIAC ENZYMES CK MB Index 0.8 0.0 - 2.5 12/16/2016 [facility] CARDIAC ENZYMES CK MB 1.9 ng/mL 0.5 - 3.6 12/16/2016 [facility] CARDIAC ENZYMES Total CK 231 unit/L 12 - 12/16/2016 [facility] CARDIAC ENZYMES Troponin-I null 0.00 - 0.40 12/16/2016 [facility] CARDIAC ENZYMES CK MB Index 0.8 0.0 - 2.5 12/16/2016 [facility] CARDIAC ENZYMES Troponin-I null 0.00 - 0.40 12/16/2016 [facility] CARDIAC ENZYMES Total CK 243 unit/L 12 - 191 12/16/2016 [facility] CARDIAC ENZYMES CK MB 2.0 ng/mL 0.5 - 3.6 12/16/2016 [facility] CHEM PANEL Magnesium Lvl 1.9 mg/dL 1.8 - 2.4 12/16/2016 [facility] CHEM PANEL Globulin 4.1 g/dL 2.7 - 4.2 12/16/2016 [facility] CHEM PANEL A/G Ratio 1.0 0.7 - 1.6 12/16/2016 [facility] CHEM PANEL AGAP 11.6 meq/L 10.0 - 20.0 12/16/2016 [facility] CHEM PANEL B/C Ratio 12 6 - 25 12/16/2016 [facility] CHEM PANEL eGFR 82 mL/min/1.73m2 12/16/2016 Result Comment: The eGFR is calculated using the [...] from the National Kidney Disease Education Program (NKDEP) which additionally recommends that when the eGFR is used in patients with extremes of body mass index for purposes of drug dosing, the eGFR should be multiplied by the estimated BMI. [facility] CHEM PANEL Total Protein 8.3 g/dL 6.4 - 8.4 12/16/2016 [facility] CHEM PANEL Albumin Lvl 4.2 g/dL 3.5 - 5.0 12/16/2016 [facility] CHEM PANEL Chloride Lvl 103 meq/L 95 - 109 12/16/2016 [facility] CHEM PANEL CO2 28 meq/L 24 - 32 12/16/2016 [facility] CHEM PANEL Potassium Lvl 3.6 meq/L 3.5 - 5.1 12/16/2016 [facility] CHEM PANEL Calcium Lvl 8.7 mg/dL 8.5 - 10.5 12/16/2016 [facility] CHEM PANEL Bili Total 0.4 mg/dL 0.2 - 1.3 12/16/2016 [facility] CHEM PANEL Alk Phos 51 unit/L 39 - 136 12/16/2016 [facility] CHEM PANEL ALT 25 unit/L 0 - 65 12/16/2016 [facility] CHEM PANEL AST 17 unit/L 0 - 37 12/16/2016 [facility] CHEM PANEL Creatinine Lvl 1.30 mg/dL 0.50 - 1.40 12/16/2016 [facility] CHEM PANEL BUN 16 mg/dL 7 - 22 12/16/2016 [facility] CHEM PANEL Sodium Lvl 139 meq/L 135 - 145 12/16/2016 [facility] CHEM PANEL Glucose Lvl 83 mg/dL 70 - 99 12/16/2016 [facility] HEMATOLOGY Eosinophils # 0.3 K/CMM 0.0 - 0.5 12/16/2016 [facility] HEMATOLOGY Basophils 0.7 % 0.0 - 1.0 12/16/2016 [facility] HEMATOLOGY Eosinophils 5.8 % 0.0 - 4.0 12/16/2016 [facility] HEMATOLOGY Lymphocytes # 1.3 K/CMM 1.0 - 5.5 12/16/2016 [facility] Segs-Bands # 3.0 K/CMM 1.5 - 8.1 12/16/2016 [facility] Monocytes # 0.6 K/CMM 0.0 - 0.8 12/16/2016 [facility] Lymphocytes 25.0 % 20.0 - 40.0 12/16/2016 [facility] Monocytes 11.4 % 2.0 - 12.0 12/16/2016 [facility] Segs 57.1 % 45.0 - 75.0 12/16/2016 [facility] PT 13.0 s 12.0 - 14.7 12/16/2016 [facility] INR 0.96 0.85 - 1.17 12/16/2016 [facility] PTT 25.4 s 22.9 - 35.8 12/16/2016 [facility] MCH 26.5 pg 27.0 - 31.0 12/16/2016 [facility] MCHC 32.8 g/dL 32.0 - 36.0 12/16/2016 [facility] RDW 14.1 % 11.5 - 14.5 12/16/2016 [facility] Platelet 241 K/CMM 133 - 450 12/16/2016 [facility] Hgb 15.5 g/dL 14.0 - 18.0 12/16/2016 [facility] MPV 9.0 fL 7.4 - 10.4 12/16/2016 [facility] MCV 80.8 fL 80.0 - 94.0 12/16/2016 [facility] RBC 5.86 M/CMM 4.70 - 6.10 12/16/2016 [facility] Hct 47.4 % 42.0 - 54.0 12/16/2016 [facility] WBC 5.2 K/CMM 3.7 - 10.4 12/16/2016 [facility] Chest 1view DX Chest 1view DX Patient Name: ABDIAZIZ ABRAMS : 1980; Age: 36 years Male MR: [id number] Study: Chest 1view DX Order Time: 12/16/2016 12:05 PM CDT CLINICAL INDICATION: Chest pain COMPARISON: Chest radiograph on 10/10/2016 FINDINGS: Lines: None. Lungs: Stable nodular opacities project over the lower thoraces most compatible with nipple shadows. No focal consolidation, effusion, or pneumothorax. Mediastinum: The cardiac silhouette is within normal limits of size. Midline trachea. Bones and soft tissues: No acute abnormalities. IMPRESSION: No acute cardiopulmonary abnormalities. SL: [id number] 12/16/2016 - - Read by: Mel Borjas MD Dictated Date/time: 12/16/16 13:09 Electronically Signed by: Mel Borjas MD 12/16/16 13:10 FINAL REPORT [facility] HEMATOLOGY PT 14.0 s 12.0 - 14.7 10/10/2016 [facility] HEMATOLOGY INR 1.06 0.85 - 1.17 10/10/2016 [facility] CARDIAC ENZYMES CK MB 1.9 ng/mL 0.5 - 3.6 10/10/2016 [facility] CARDIAC ENZYMES Troponin-I null 0.00 - 0.40 10/10/2016 [facility] CARDIAC ENZYMES Total CK 230 unit/L 12 - 191 10/10/2016 [facility] CARDIAC ENZYMES CK MB Index 0.8 0.0 - 2.5 10/10/2016 [facility] CHEM PANEL B/C Ratio 12 6 - 25 10/10/2016 [facility] CHEM PANEL A/G Ratio 1.0 0.7 - 1.6 10/10/2016 [facility] CHEM PANEL Globulin 4.0 g/dL 2.7 - 4.2 10/10/2016 [facility] CHEM PANEL eGFR 101 mL/min/1.73m2 10/10/2016 Result Comment: The eGFR is calculated using the [...] from the National Kidney Disease Education Program (NKDEP) which additionally recommends that when the eGFR is used in patients with extremes of body mass index for purposes of drug dosing, the eGFR should be multiplied by the estimated BMI. [facility] CHEM PANEL BUN 13 mg/dL 7 - 22 10/10/2016 [facility] CHEM PANEL Glucose Lvl 73 mg/dL 70 - 99 10/10/2016 [facility] CHEM PANEL Sodium Lvl 140 meq/L 135 - 145 10/10/2016 [facility] CHEM PANEL Potassium Lvl 3.9 meq/L 3.5 - 5.1 10/10/2016 [facility] CHEM PANEL Creatinine Lvl 1.10 mg/dL 0.50 - 1.40 10/10/2016 [facility] CHEM PANEL Chloride Lvl 105 meq/L 95 - 109 10/10/2016 [facility] CHEM PANEL ALT 22 unit/L 0 - 65 10/10/2016 [facility] CHEM PANEL AST 17 unit/L 0 - 37 10/10/2016 [facility] CHEM PANEL AGAP 12.9 meq/L 10.0 - 20.0 10/10/2016 [facility] CHEM PANEL Bili Total 0.8 mg/dL 0.2 - 1.3 10/10/2016 [facility] CHEM PANEL Alk Phos 49 unit/L 39 - 136 10/10/2016 [facility] CHEM PANEL Calcium Lvl 9.0 mg/dL 8.5 - 10.5 10/10/2016 [facility] CHEM PANEL CO2 26 meq/L 24 - 32 10/10/2016 [facility] CHEM PANEL Total Protein 8.2 g/dL 6.4 - 8.4 10/10/2016 [facility] CHEM PANEL Albumin Lvl 4.2 g/dL 3.5 - 5.0 10/10/2016 [facility] HEMATOLOGY WBC 5.6 K/CMM 3.7 - 10.4 10/10/2016 [facility] HEMATOLOGY RBC 6.02 M/CMM 4.70 - 6.10 10/10/2016 [facility] HEMATOLOGY MPV 9.0 fL 7.4 - 10.4 10/10/2016 [facility] HEMATOLOGY RDW 14.9 % 11.5 - 14.5 10/10/2016 [facility] HEMATOLOGY Platelet 243 K/CMM 133 - 450 10/10/2016 [facility] MCV 81.2 fL 80.0 - 94.0 10/10/2016 [facility] MCH 26.5 pg 27.0 - 31.0 10/10/2016 [facility] MCHC 32.7 g/dL 32.0 - 36.0 10/10/2016 [facility] Hct 48.9 % 42.0 - 54.0 10/10/2016 [facility] Hgb 16.0 g/dL 14.0 - 18.0 10/10/2016 [facility] PTT 28.5 s 22.9 - 35.8 10/10/2016 [facility] INR 6.09 0.85 - 1.17 10/10/2016 Result Comment: Critical Result(s) called to abhilash at 10/10/2016 12:43 by tb. Read back OK. [facility] PT 55.0 s 12.0 - 14.7 10/10/2016 [facility] Eosinophils # 0.2 K/CMM 0.0 - 0.5 10/10/2016 [facility] Monocytes # 0.6 K/CMM 0.0 - 0.8 10/10/2016 [facility] Lymphocytes # 1.1 K/CMM 1.0 - 5.5 10/10/2016 [facility] Segs-Bands # 3.6 K/CMM 1.5 - 8.1 10/10/2016 [facility] Monocytes 11.0 % 2.0 - 12.0 10/10/2016 [facility] Eosinophils 2.9 % 0.0 - 4.0 10/10/2016 [facility] Basophils 0.8 % 0.0 - 1.0 10/10/2016 [facility] Lymphocytes 20.7 % 20.0 - 40.0 10/10/2016 [facility] Segs 64.6 % 45.0 - 75.0 10/10/2016 [facility] Brain wo contrast CT Brain wo contrast CT CT BRAIN WITHOUT CONTRAST INDICATION: Syncope; Reports he was at work and started to feel light headed and his legs got weak. Reports his legs still feel weak. Having intermit Dizziness. Denies medical Hx., dlp: [phone] COMPARISON: CT brain 10/30/2015 DISCUSSION: There is no evidence of acute vascular insults, space occupying lesions, hemorrhage, hydrocephalus, midline shift, or extra-axial fluid collections. The calvarium is intact. IMPRESSION: No acute intracranial abnormalities are visualized. 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 COMPARISON: May 2016. December 2015. November 2015. 08/20/2015. FINDINGS: Views: 2 LUNGS: There is increased lung volume. Left lower lobe reticular nodular density measures 16 mm. There are no pleural effusions. There is no pneumothorax. The pulmonary vasculature is normal. MEDIASTINUM: The cardiac silhouette is normal. The trachea is midline. BONES: There are no clinically significant osseous abnormalities noted. IMPRESSION: 1. Hyperinflation. Left lower lobe reticular nodular density may represent a summation shadow. Short interval follow-up chest x-ray is recommended to help exclude a true pulmonary nodule. SL: [id number] 10/10/2016 - - Read by: Todd Conti MD Dictated Date/time: 10/10/16 12:24 Electronically Signed by: Todd Conti MD 10/10/16 12:27 FINAL REPORT [facility] CHEM PANEL A/G Ratio 1.0 0.7 - 1.6 05/27/2016 [facility] CHEM PANEL Globulin 3.8 g/dL 2.7 - 4.2 05/27/2016 [facility] CHEM PANEL B/C Ratio 10 6 - 25 05/27/2016 [facility] CHEM PANEL AGAP 10.6 meq/L 10.0 - 20.0 05/27/2016 [facility] CHEM PANEL eGFR 96 mL/min/1.73m2 05/27/2016 Result Comment: The eGFR is calculated using the [...] from the National Kidney Disease Education Program (NKDEP) which additionally recommends that when the eGFR is used in patients with extremes of body mass index for purposes of drug dosing, the eGFR should be multiplied by the estimated BMI. [facility] CHEM PANEL Calcium Lvl 9.0 mg/dL 8.5 - 10.5 05/27/2016 [facility] CHEM PANEL Potassium Lvl 3.6 meq/L 3.5 - 5.1 05/27/2016 [facility] CHEM PANEL Creatinine Lvl 1.14 mg/dL 0.50 - 1.40 05/27/2016 [facility] CHEM PANEL Sodium Lvl 140 meq/L 135 - 145 05/27/2016 [facility] CHEM PANEL Glucose Lvl 98 mg/dL 70 - 99 05/27/2016 [facility] CHEM PANEL BUN 11 mg/dL 7 - 22 05/27/2016 [facility] CHEM PANEL Bili Total 1.0 mg/dL 0.2 - 1.3 05/27/2016 [facility] CHEM PANEL AST 14 unit/L 0 - 37 05/27/2016 [facility] CHEM PANEL ALT 23 unit/L 0 - 65 05/27/2016 [facility] CHEM PANEL Albumin Lvl 3.9 g/dL 3.5 - 5.0 05/27/2016 [facility] CHEM PANEL CO2 26 meq/L 24 - 32 05/27/2016 [facility] CHEM PANEL Total Protein 7.7 g/dL 6.4 - 8.4 05/27/2016 [facility] CHEM PANEL Chloride Lvl 107 meq/L 95 - 109 05/27/2016 [facility] CHEM PANEL Alk Phos 42 unit/L 39 - 136 05/27/2016 [facility] CHEM PANEL Amylase Lvl 61 unit/L 25 - 115 05/27/2016 [facility] CHEM PANEL Lipase Lvl 167 unit/L 73 - 393 05/27/2016 [facility] HEMATOLOGY Platelet 251 K/CMM 133 - 450 05/27/2016 [facility] HEMATOLOGY RDW 14.1 % 11.5 - 14.5 05/27/2016 [facility] HEMATOLOGY MPV 8.9 fL 7.4 - 10.4 05/27/2016 [facility] HEMATOLOGY MCHC 32.9 g/dL 32.0 - 36.0 05/27/2016 [facility] HEMATOLOGY Hgb 15.5 g/dL 14.0 - 18.0 05/27/2016 [facility] HEMATOLOGY Hct 47.1 % 42.0 - 54.0 05/27/2016 [facility] HEMATOLOGY WBC 4.6 K/CMM 3.7 - 10.4 05/27/2016 [facility] HEMATOLOGY RBC 5.80 M/CMM 4.70 - 6.10 05/27/2016 [facility] HEMATOLOGY MCH 26.6 pg 27.0 - 31.0 05/27/2016 [facility] HEMATOLOGY MCV 81.1 fL 80.0 - 94.0 05/27/2016 [facility] HEMATOLOGY Segs-Bands # 2.3 K/CMM 1.5 - 8.1 05/27/2016 [facility] HEMATOLOGY Monocytes # 0.6 K/CMM 0.0 - 0.8 05/27/2016 [facility] HEMATOLOGY Lymphocytes # 1.4 K/CMM 1.0 - 5.5 05/27/2016 [facility] HEMATOLOGY Segs 49.9 % 45.0 - 75.0 05/27/2016 [facility] HEMATOLOGY Eosinophils 4.7 % 0.0 - 4.0 05/27/2016 [facility] HEMATOLOGY Basophils 0.9 % 0.0 - 1.0 05/27/2016 [facility] Lymphocytes 31.7 % 20.0 - 40.0 05/27/2016 [facility] HEMATOLOGY Monocytes 12.8 % 2.0 - 12.0 05/27/2016 [facility] Eosinophils # 0.2 K/CMM 0.0 - 0.5 05/27/2016 [facility] CARDIAC ENZYMES Troponin-I null 0.00 - 0.40 05/22/2016 [facility] CHEM PANEL eGFR 103 mL/min/1.73m2 05/22/2016 Result Comment: The eGFR is calculated using the [...] from the National Kidney Disease Education Program (NKDEP) which additionally recommends that when the eGFR is used in patients with extremes of body mass index for purposes of drug dosing, the eGFR should be multiplied by the estimated BMI. [facility] CHEM PANEL AST 29 unit/L 0 - 37 05/22/2016 [facility] CHEM PANEL Alk Phos 41 unit/L 39 - 136 05/22/2016 [facility] CHEM PANEL Bili Total 0.8 mg/dL 0.2 - 1.3 05/22/2016 [facility] CHEM PANEL Calcium Lvl 8.5 mg/dL 8.5 - 10.5 05/22/2016 [facility] CHEM PANEL Total Protein 7.1 g/dL 6.4 - 8.4 05/22/2016 [facility] CHEM PANEL Albumin Lvl 3.9 g/dL 3.5 - 5.0 05/22/2016 [facility] CHEM PANEL Globulin 3.2 g/dL 2.7 - 4.2 05/22/2016 [facility] CHEM PANEL B/C Ratio 10 6 - 25 05/22/2016 [facility] CHEM PANEL Sodium Lvl 143 meq/L 135 - 145 05/22/2016 [facility] CHEM PANEL CO2 29 meq/L 24 - 32 05/22/2016 [facility] CHEM PANEL AGAP 9.3 meq/L 10.0 - 20.0 05/22/2016 [facility] CHEM PANEL ALT 25 unit/L 0 - 65 05/22/2016 [facility] CHEM PANEL A/G Ratio 1.2 0.7 - 1.6 05/22/2016 [facility] CHEM PANEL Potassium Lvl 4.3 meq/L 3.5 - 5.1 05/22/2016 Result Comment: Specimen hemolyzed, suggest recollect @05/22/2016 10:34 -[facility] CHEM PANEL Chloride Lvl 109 meq/L 95 - 109 05/22/2016 [facility] CHEM PANEL Creatinine Lvl 1.08 mg/dL 0.50 - 1.40 05/22/2016 [facility] CHEM PANEL Glucose Lvl 83 mg/dL 70 - 99 05/22/2016 [facility] CHEM PANEL BUN 11 mg/dL 7 - 22 05/22/2016 [facility] HEMATOLOGY Platelet 234 K/CMM 133 - 450 05/22/2016 [facility] HEMATOLOGY RDW 14.2 % 11.5 - 14.5 05/22/2016 [facility] HEMATOLOGY MPV 8.7 fL 7.4 - 10.4 05/22/2016 [facility] HEMATOLOGY Hgb 14.5 g/dL 14.0 - 18.0 05/22/2016 [facility] HEMATOLOGY Hct 43.3 % 42.0 - 54.0 05/22/2016 [facility] HEMATOLOGY MCH 27.3 pg 27.0 - 31.0 05/22/2016 [facility] MCV 81.4 fL 80.0 - 94.0 05/22/2016 [facility] MCHC 33.5 g/dL 32.0 - 36.0 05/22/2016 [facility] RBC 5.32 M/CMM 4.70 - 6.10 05/22/2016 [facility] WBC 6.1 K/CMM 3.7 - 10.4 05/22/2016 [facility] Eosinophils # 0.2 K/CMM 0.0 - 0.5 05/22/2016 [facility] Basophils 0.3 % 0.0 - 1.0 05/22/2016 [facility] Lymphocytes 19.0 % 20.0 - 40.0 05/22/2016 [facility] Segs 66.8 % 45.0 - 75.0 05/22/2016 [facility] Lymphocytes # 1.2 K/CMM 1.0 - 5.5 05/22/2016 [facility] Segs-Bands # 4.1 K/CMM 1.5 - 8.1 05/22/2016 [facility] Eosinophils 3.6 % 0.0 - 4.0 05/22/2016 [facility] Monocytes # 0.6 K/CMM 0.0 - 0.8 05/22/2016 [facility] Monocytes 10.3 % 2.0 - 12.0 05/22/2016 [facility] Chest 2 views DX Chest 2 views DX Clinical Indication: Coughing Comparison: Comparison is made to chest radiograph examination dated 12/10/2015. FINDINGS: The cardiomediastinal silhouette is within normal limits for appearance. No focal pulmonary consolidation, pneumothorax or pleural effusion. Midline trachea. The thoracic spine appears intact. IMPRESSION: 1. No acute intrathoracic abnormality. SL: [id number] 05/22/2016 - - Read by: Abdiaziz Ng MD Dictated Date/time: 05/22/16 08:31 Electronically Signed by: Abdiaziz Ng MD 05/22/16 08:32 FINAL REPORT [facility] Sinus wo contrast CT Sinus wo contrast CT Clinical Indication: J32.9 Chronic sinusitis, unspecified 35-year-old with difficulty breathing chronic sinus infections. Comparison: CT of the head October 30, 2015 Technique: CT of the sinuses is performed without contrast on a multi-detector CT. Coronal and sagittal reconstructions were obtained. CT Radiation Dose DLP 381 mGy-cm FINDINGS: PARANASAL SINUSES: Mild small patchy areas of mucosal thickening is seen in the maxillary sinuses. The osteomeatal complexes are patent. Mild to moderate patchy mucosal thickening is seen in several of the ethmoidal air cells. The sphenoethmoidal recesses are obstructed. Minimal patchy mucosal thickening is seen in the anterior wall of the sphenoid sinuses. Mild to moderate patchy mucosal thickening is seen in the inferior frontal sinuses. The frontal recesses are patent. SOFT TISSUES: There is no soft tissue swelling seen. There is no significant lymphadenopathy noted. There are no fluid collections. NASAL CAVITY: Mild to moderate mucosal thickening is seen in the left middle turbinate and in both inferior turbinates. The nasal bones are intact. Moderate deviation of the bony septum is seen with convexity to the right. A moderately large bone spur extends to the right located between the middle and inferior turbinates that measures 7.6 mm W by 15.7 mm AP by 8.5 mm CC. ORBITS: The globes and extraocular muscles appear unremarkable. The orbital apex regions appear unremarkable. The orbital roof, floor, superior, inferior, medial and lateral morris are intact. FACIAL BONES: There are no facial bone fractures noted. The pterygoid plates are intact. The zygomatic arches are intact. The cribriform plate and mary jo dennis regions are unremarkable. The maxilla is intact. The mandible is intact with intact mandibular condyles and coronoid processes. IMPRESSION: 1. Mucosal thickening is seen in the paranasal sinuses described above consistent with chronic sinusitis similar to the CT of the head October 30, 2015. 2. Deviation of the bony septum is seen with convexity to the right with a bone spur extending to the right between the right middle and inferior turbinates. 3. Mucosal thickening is seen in the middle and inferior turbinates. SL: [id number] 03/05/2016 - - Read by: Ashish Walsh MD Dictated Date/time: 03/05/16 09:55 Electronically Signed by: Ashish Walsh MD 03/05/16 10:14 FINAL REPORT [facility] CHEM PANEL Lipase Lvl 208 unit/L 73 - 393 02/03/2016 [facility] CHEM PANEL eGFR 87 mL/min/1.73m2 02/03/2016 Result Comment: The eGFR is calculated using the [...] from the National Kidney Disease Education Program (NKDEP) which additionally recommends that when the eGFR is used in patients with extremes of body mass index for purposes of drug dosing, the eGFR should be multiplied by the estimated BMI. [facility] CHEM PANEL Alk Phos 49 unit/L 39 - 136 02/03/2016 [facility] CHEM PANEL Albumin Lvl 4.0 g/dL 3.5 - 5.0 02/03/2016 [facility] CHEM PANEL ALT 29 unit/L 0 - 65 02/03/2016 [facility] CHEM PANEL AST 14 unit/L 0 - 37 02/03/2016 [facility] CHEM PANEL Total Protein 7.8 g/dL 6.4 - 8.4 02/03/2016 [facility] CHEM PANEL Bili Total 0.6 mg/dL 0.2 - 1.3 02/03/2016 [facility] CHEM PANEL Calcium Lvl 9.2 mg/dL 8.5 - 10.5 02/03/2016 [facility] CHEM PANEL CO2 29 meq/L 24 - 32 02/03/2016 [facility] CHEM PANEL Chloride Lvl 107 meq/L 95 - 109 02/03/2016 [facility] CHEM PANEL Potassium Lvl 3.5 meq/L 3.5 - 5.1 02/03/2016 [facility] CHEM PANEL Sodium Lvl 142 meq/L 135 - 145 02/03/2016 [facility] CHEM PANEL Creatinine Lvl 1.25 mg/dL 0.50 - 1.40 02/03/2016 [facility] CHEM PANEL BUN 13 mg/dL 7 - 22 02/03/2016 [facility] CHEM PANEL Glucose Lvl 99 mg/dL 70 - 99 02/03/2016 [facility] CHEM PANEL Globulin 3.8 g/dL 2.0 - 4.0 02/03/2016 [facility] CHEM PANEL B/C Ratio 10 6 - 25 02/03/2016 [facility] CHEM PANEL AGAP 9.5 meq/L 10.0 - 20.0 02/03/2016 [facility] CHEM PANEL A/G Ratio 1.1 0.7 - 1.6 02/03/2016 [facility] HEMATOLOGY Eosinophils # 0.4 K/CMM 0.0 - 0.5 02/03/2016 [facility] HEMATOLOGY Segs-Bands # 3.6 K/CMM 1.5 - 8.1 02/03/2016 [facility] HEMATOLOGY Lymphocytes # 1.5 K/CMM 1.0 - 5.5 02/03/2016 [facility] HEMATOLOGY Monocytes # 0.7 K/CMM 0.0 - 0.8 02/03/2016 [facility] HEMATOLOGY Eosinophils 6.6 % 0.0 - 4.0 02/03/2016 [facility] HEMATOLOGY Basophils 0.8 % 0.0 - 1.0 02/03/2016 [facility] HEMATOLOGY Monocytes 10.8 % 2.0 - 12.0 02/03/2016 [facility] HEMATOLOGY Segs 57.1 % 45.0 - 75.0 02/03/2016 [facility] Lymphocytes 24.7 % 20.0 - 40.0 02/03/2016 [facility] WBC 6.2 K/CMM 3.7 - 10.4 02/03/2016 [facility] MCHC 31.5 g/dL 32.0 - 36.0 02/03/2016 [facility] RDW 13.3 % 11.5 - 14.5 02/03/2016 [facility] HEMATOLOGY Platelet 231 K/CMM 133 - 450 02/03/2016 [facility] RBC 6.01 M/CMM 4.70 - 6.10 02/03/2016 [facility] Hgb 15.4 g/dL 14.0 - 18.0 02/03/2016 [facility] Hct 48.8 % 42.0 - 54.0 02/03/2016 [facility] MCV 81.2 fL 80.0 - 94.0 02/03/2016 [facility] MCH 25.6 pg 27.0 - 31.0 02/03/2016 [facility] MPV 8.9 fL 7.4 - 10.4 02/03/2016 [facility] IMMUNOLOGY CDC HIV 4th GEN Negative (12/10/15 4:11 AM) Negative 12/10/2015 [facility] URINE AND STOOL UA WBC 0-2 /HPF None Seen /HPF 12/10/2015 [facility] URINE AND STOOL UA Sq Epi Rare /LPF Few /LPF 12/10/2015 [facility] URINE AND STOOL Micro? Performed (12/10/15 4:01 AM) 12/10/2015 [facility] URINE AND STOOL UA Bacteria None Seen (12/10/15 4:01 AM) None Seen 12/10/2015 [facility] URINE AND STOOL UA RBC 0-2 /HPF 0 - 2 12/10/2015 [facility] URINE AND STOOL UA Blood Negative (12/10/15 4:01 AM) Negative 12/10/2015 [facility] URINE AND STOOL UA Leuk Est Negative (12/10/15 4:01 AM) Negative 12/10/2015 [facility] URINE AND STOOL UA Urobilinogen 0.2 EU/dL 0.1 - 1.0 12/10/2015 [facility] URINE AND STOOL UA Bili Negative *NA* (12/10/15 4:01 AM) Negative 12/10/2015 [facility] URINE AND STOOL UA Nitrite Negative (12/10/15 4:01 AM) Negative 12/10/2015 [facility] URINE AND STOOL UA pH 7.0 5.0 - 8.0 12/10/2015 [facility] URINE AND STOOL UA Spec Grav 1.010 <=1.030 12/10/2015 [facility] URINE AND STOOL UA Turbidity Clear (12/10/15 4:01 AM) Clear 12/10/2015 [facility] URINE AND STOOL UA Color Yellow *NA* (12/10/15 4:01 AM) Yellow 12/10/2015 [facility] URINE AND STOOL UA Glucose Negative mg/dL Negative mg/dL 12/10/2015 [facility] URINE AND STOOL UA Ketones Negative mg/dL Negative mg/dL 12/10/2015 [facility] URINE AND STOOL UA Protein Negative mg/dL Negative mg/dL 12/10/2015 [facility] CARDIAC ENZYMES CK MB Index 0.3 0.0 - 2.5 12/10/2015 [facility] CARDIAC ENZYMES BNP 6 pg/mL <=100 pg/mL 12/10/2015 [facility] CARDIAC ENZYMES Troponin-I 0.06 ng/mL 0.00 - 0.40 12/10/2015 [facility] CARDIAC ENZYMES Total CK 1157 unit/L 12 - 191 12/10/2015 [facility] CARDIAC ENZYMES CK MB 4.0 ng/mL 0.5 - 3.6 12/10/2015 [facility] CHEM PANEL AST 28 unit/L 0 - 37 12/10/2015 [facility] CHEM PANEL Total Protein 7.6 g/dL 6.4 - 8.4 12/10/2015 [facility] CHEM PANEL Albumin Lvl 3.8 g/dL 3.5 - 5.0 12/10/2015 [facility] CHEM PANEL ALT 39 unit/L 0 - 65 12/10/2015 [facility] CHEM PANEL Calcium Lvl 8.7 mg/dL 8.5 - 10.5 12/10/2015 [facility] CHEM PANEL Potassium Lvl 3.6 meq/L 3.5 - 5.1 12/10/2015 [facility] CHEM PANEL Chloride Lvl 104 meq/L 95 - 109 12/10/2015 [facility] CHEM PANEL CO2 27 meq/L 24 - 32 12/10/2015 [facility] CHEM PANEL Glucose Lvl 81 mg/dL 70 - 99 12/10/2015 [facility] CHEM PANEL BUN 15 mg/dL 7 - 22 12/10/2015 [facility] CHEM PANEL Creatinine Lvl 1.25 mg/dL 0.50 - 1.40 12/10/2015 [facility] CHEM PANEL Sodium Lvl 137 meq/L 135 - 145 12/10/2015 [facility] CHEM PANEL Alk Phos 53 unit/L 39 - 136 12/10/2015 [facility] CHEM PANEL A/G Ratio 1.0 0.7 - 1.6 12/10/2015 [facility] CHEM PANEL Globulin 3.8 g/dL 2.0 - 4.0 12/10/2015 [facility] CHEM PANEL AGAP 9.6 meq/L 10.0 - 20.0 12/10/2015 [facility] CHEM PANEL B/C Ratio 12 6 - 25 12/10/2015 [facility] CHEM PANEL Bili Total 0.7 mg/dL 0.2 - 1.3 12/10/2015 [facility] CHEM PANEL eGFR 87 mL/min/1.73m2 12/10/2015 Result Comment: The eGFR is calculated using the [...] from the National Kidney Disease Education Program (NKDEP) which additionally recommends that when the eGFR is used in patients with extremes of body mass index for purposes of drug dosing, the eGFR should be multiplied by the estimated BMI. [facility] Lymphocytes 21.1 % 20.0 - 40.0 12/10/2015 [facility] Basophils 0.7 % 0.0 - 1.0 12/10/2015 [facility] Monocytes 12.3 % 2.0 - 12.0 12/10/2015 [facility] Eosinophils 3.9 % 0.0 - 4.0 12/10/2015 [facility] HEMATOLOGY Segs 62.0 % 45.0 - 75.0 12/10/2015 [facility] Basophils # 0.1 K/CMM 0.0 - 0.2 12/10/2015 [facility] HEMATOLOGY Monocytes # 1.1 K/CMM 0.0 - 0.8 12/10/2015 [facility] Eosinophils # 0.3 K/CMM 0.0 - 0.5 12/10/2015 [facility] Segs-Bands # 5.4 K/CMM 1.5 - 8.1 12/10/2015 [facility] Lymphocytes # 1.8 K/CMM 1.0 - 5.5 12/10/2015 [facility] RDW 13.8 % 11.5 - 14.5 12/10/2015 [facility] MCV 80.3 fL 80.0 - 94.0 12/10/2015 [facility] MCH 26.6 pg 27.0 - 31.0 12/10/2015 [facility] MCHC 33.1 g/dL 32.0 - 36.0 12/10/2015 [facility] Hgb 15.1 g/dL 14.0 - 18.0 12/10/2015 [facility] Hct 45.6 % 42.0 - 54.0 12/10/2015 [facility] WBC 8.7 K/CMM 3.7 - 10.4 12/10/2015 [facility] RBC 5.68 M/CMM 4.70 - 6.10 12/10/2015 [facility] MPV 8.7 fL 7.4 - 10.4 12/10/2015 [facility] Platelet 243 K/CMM 133 - 450 12/10/2015 [facility] Chest 1view DX Chest 1view DX Study: Chest 1view DX 12/10/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 Comparison: 11/17/2015 FINDINGS: The lungs are well-expanded and clear. There is no evidence for alveolar consolidation, pleural effusion, pulmonary edema or pneumothorax. The mediastinal contours are within normal limits. The cardiac silhouette is normal in size. Regional osseous structures are unremarkable. No soft tissue abnormalities are seen. IMPRESSION: No acute cardiopulmonary disease. SL: [id number] 12/10/2015 - - Read by: Norma Santiago MD Dictated Date/time: 12/10/15 04:17 Electronically Signed by: Norma Santiago MD 12/10/15 04:18 FINAL REPORT [facility] Ext Lower Venous Doppler Unilat US Ext Lower Venous Doppler Unilat US Clinical Indication: Pain, Limb Comparison: None TECHNIQUE: Sonographic evaluation of the right lower extremity veins was performed using high resolution B-mode imaging, along with pulse and color Doppler imaging. FINDINGS: Right lower extremity: The common femoral vein, superficial femoral vein, popliteal vein and visualized posterior tibial/calf veins are patent. There is no echogenic debris to suggest deep venous thrombosis. The saphenofemoral junction is unremarkable. IMPRESSION: No DVT within the right lower extremity. : [id number] 11/24/2015 - - Read by: Ludwin Amaro MD Dictated Date/time: 11/24/15 20:02 Electronically Signed by: Ludwin Amaro MD 11/24/15 20:03 FINAL REPORT [facility] URINE AND STOOL UA WBC None Seen (11/17/15 10:08 PM) None Seen 11/18/2015 [facility] URINE AND STOOL UA RBC None Seen (11/17/15 10:08 PM) 0 - 2 11/18/2015 [facility] URINE AND STOOL UA Bacteria Occasional /HPF None Seen /HPF 11/18/2015 [facility] URINE AND STOOL UA Sq Epi None Seen (11/17/15 10:08 PM) Few 11/18/2015 [facility] URINE AND STOOL UA Protein Negative mg/dL Negative mg/dL 11/18/2015 [facility] URINE AND STOOL UA Glucose Negative mg/dL Negative mg/dL 11/18/2015 [facility] URINE AND STOOL UA Ketones Negative mg/dL Negative mg/dL 11/18/2015 [facility] URINE AND STOOL UA Bili Negative *NA* (11/17/15 10:08 PM) Negative 11/18/2015 [facility] URINE AND STOOL UA Blood Negative (11/17/15 10:08 PM) Negative 11/18/2015 [facility] URINE AND STOOL UA Spec Grav 1.020 <=1.030 11/18/2015 [facility] URINE AND STOOL UA pH 6.0 5.0 - 8.0 11/18/2015 [facility] URINE AND STOOL UA Turbidity Clear (11/17/15 10:08 PM) Clear 11/18/2015 [facility] URINE AND STOOL UA Color Yellow *NA* (11/17/15 10:08 PM) Yellow 11/18/2015 [facility] URINE AND STOOL UA Urobilinogen 0.2 EU/dL 0.1 - 1.0 11/18/2015 [facility] URINE AND STOOL UA Nitrite Negative (11/17/15 10:08 PM) Negative 11/18/2015 [facility] URINE AND STOOL UA Leuk Est Negative (11/17/15 10:08 PM) Negative 11/18/2015 [facility] CARDIAC ENZYMES CK MB Index 0.6 0.0 - 2.5 11/18/2015 [facility] CARDIAC ENZYMES CK MB 1.6 ng/mL 0.5 - 3.6 11/18/2015 [facility] CARDIAC ENZYMES Total CK 274 unit/L 12 - 191 11/18/2015 [facility] CARDIAC ENZYMES Troponin-I null 0.00 - 0.40 11/18/2015 [facility] CHEM PANEL eGFR 103 mL/min/1.73m2 11/18/2015 Result Comment: The eGFR is calculated using the [...] from the National Kidney Disease Education Program (NKDEP) which additionally recommends that when the eGFR is used in patients with extremes of body mass index for purposes of drug dosing, the eGFR should be multiplied by the estimated BMI. [facility] CHEM PANEL Glucose Lvl 109 mg/dL 70 - 99 11/18/2015 [facility] CHEM PANEL Creatinine Lvl 1.09 mg/dL 0.50 - 1.40 11/18/2015 [facility] CHEM PANEL BUN 16 mg/dL 7 - 22 11/18/2015 [facility] CHEM PANEL Globulin 3.8 g/dL 2.0 - 4.0 11/18/2015 [facility] CHEM PANEL A/G Ratio 1.0 0.7 - 1.6 11/18/2015 [facility] CHEM PANEL B/C Ratio 15 6 - 25 11/18/2015 [facility] CHEM PANEL AST 19 unit/L 0 - 37 11/18/2015 [facility] CHEM PANEL AGAP 10.6 meq/L 10.0 - 20.0 11/18/2015 [facility] CHEM PANEL Alk Phos 54 unit/L 39 - 136 11/18/2015 [facility] CHEM PANEL Bili Total 0.4 mg/dL 0.2 - 1.3 11/18/2015 [facility] CHEM PANEL ALT 39 unit/L 0 - 65 11/18/2015 [facility] CHEM PANEL Albumin Lvl 3.9 g/dL 3.5 - 5.0 11/18/2015 [facility] CHEM PANEL Calcium Lvl 9.0 mg/dL 8.5 - 10.5 11/18/2015 [facility] CHEM PANEL Total Protein 7.7 g/dL 6.4 - 8.4 11/18/2015 [facility] CHEM PANEL CO2 28 meq/L 24 - 32 11/18/2015 [facility] CHEM PANEL Sodium Lvl 140 meq/L 135 - 145 11/18/2015 [facility] CHEM PANEL Potassium Lvl 3.6 meq/L 3.5 - 5.1 11/18/2015 [facility] CHEM PANEL Chloride Lvl 105 meq/L 95 - 109 11/18/2015 [facility] HEMATOLOGY Basophils # 0.1 K/CMM 0.0 - 0.2 11/18/2015 [facility] HEMATOLOGY Segs-Bands # 3.5 K/CMM 1.5 - 8.1 11/18/2015 [facility] HEMATOLOGY Eosinophils # 0.6 K/CMM 0.0 - 0.5 11/18/2015 [facility] HEMATOLOGY Monocytes # 1.1 K/CMM 0.0 - 0.8 11/18/2015 [facility] HEMATOLOGY Lymphocytes # 2.1 K/CMM 1.0 - 5.5 11/18/2015 [facility] HEMATOLOGY Monocytes 14.5 % 2.0 - 12.0 11/18/2015 [facility] HEMATOLOGY Lymphocytes 28.3 % 20.0 - 40.0 11/18/2015 [facility] HEMATOLOGY Basophils 0.9 % 0.0 - 1.0 11/18/2015 [facility] HEMATOLOGY Eosinophils 8.2 % 0.0 - 4.0 11/18/2015 [facility] Segs 48.1 % 45.0 - 75.0 11/18/2015 [facility] Platelet 233 K/CMM 133 - 450 11/18/2015 [facility] MPV 8.9 fL 7.4 - 10.4 11/18/2015 [facility] MCH 26.7 pg 27.0 - 31.0 11/18/2015 [facility] MCHC 32.8 g/dL 32.0 - 36.0 11/18/2015 [facility] RDW 14.1 % 11.5 - 14.5 11/18/2015 [facility] Hgb 15.0 g/dL 14.0 - 18.0 11/18/2015 [facility] MCV 81.3 fL 80.0 - 94.0 11/18/2015 [facility] Hct 45.7 % 42.0 - 54.0 11/18/2015 [facility] RBC 5.62 M/CMM 4.70 - 6.10 11/18/2015 [facility] WBC 7.3 K/CMM 3.7 - 10.4 11/18/2015 [facility] Chest 1view DX Chest 1view DX NAME: ABDIAZIZ ABRAMS : 1980 SEX: M Ordering Physician: Thea Call 1view : Nov 17, 2015 07:42:00 PM. CLINICAL INDICATION: Sudden onset of left arm numbness, chest pressure and leg weakness. Comparison Examination: August 20, 2015. FINDINGS: The portable AP chest radiograph shows normal lung volumes without interstitial or airspace opacities, pleural effusions or pneumothorax. The heart size and pulmonary vasculature are normal. The trachea is midline. There are no clinically significant osseous abnormalities noted. IMPRESSION: 1. No portable AP chest radiographic evidence of acute cardiopulmonary disease. SL: 24 11/17/2015 - - Read by: Vito Parra MD Dictated Date/time: 11/17/15 21:15 Electronically Signed by: Vito Parra MD 11/17/15 21:16 FINAL REPORT [facility] Brain wo contrast CT Brain wo contrast CT Name: ABDIAZIZ ABRAMS : 1980 SEX: M Ordering Physician: Sherine Greenberg Brain wo contrast CT : Oct 30, 2015 03:48:00 PM. CLINICAL INDICATION: Headache with Dizziness and Giddiness; head pressure; anxiety Comparison Examination: None TECHNIQUE: Axial CT images were obtained from the foramen magnum to the vertex without the use of intravenous contrast. Coronal and sagittal reconstructions reconstructions were obtained and viewed on the workstation. Dose: The total exam DLP is 1103.89 mGy-cm. FINDINGS: The brain is structurally normal without focal lesion, edema, midline shift, hydrocephalus, or extra-axial collection. There are no parenchymal, intraventricular, or extra-axial hemorrhages. The ventricles and cisterns are normal. The skull, orbits, mastoids and paranasal sinuses are unremarkable. IMPRESSION: Negative noncontrast CT examination of the head without acute traumatic injury, stroke, hemorrhage or mass. SL: 24 10/30/2015 - - Read by: Ayush Maddox MD Dictated Date/time: 10/30/15 15:56 Electronically Signed by: Ayush Maddox MD 10/30/15 15:57 FINAL REPORT [facility] CARDIAC ENZYMES Total CK 711 unit/L 12 - 191 08/20/2015 [facility] CARDIAC ENZYMES CK MB 3.6 ng/mL 0.5 - 3.6 08/20/2015 [facility] CARDIAC ENZYMES Troponin-I null 0.00 - 0.40 08/20/2015 [facility] CARDIAC ENZYMES CK MB Index 0.5 0.0 - 2.5 08/20/2015 [facility] CHEM PANEL eGFR 79 mL/min/1.73m2 08/20/2015 Result Comment: The eGFR is calculated using the [...] from the National Kidney Disease Education Program (NKDEP) which additionally recommends that when the eGFR is used in patients with extremes of body mass index for purposes of drug dosing, the eGFR should be multiplied by the estimated BMI. [facility] CHEM PANEL Creatinine Lvl 1.35 mg/dL 0.50 - 1.40 08/20/2015 [facility] CHEM PANEL CO2 26 meq/L 24 - 32 08/20/2015 [facility] CHEM PANEL Chloride Lvl 101 meq/L 95 - 109 08/20/2015 [facility] CHEM PANEL AGAP 11.8 meq/L 10.0 - 20.0 08/20/2015 [facility] CHEM PANEL Calcium Lvl 9.1 mg/dL 8.5 - 10.5 08/20/2015 [facility] CHEM PANEL Potassium Lvl 3.8 meq/L 3.5 - 5.1 08/20/2015 [facility] CHEM PANEL Sodium Lvl 135 meq/L 135 - 145 08/20/2015 [facility] CHEM PANEL BUN 13 mg/dL 7 - 22 08/20/2015 [facility] CHEM PANEL Glucose Lvl 93 mg/dL 70 - 99 08/20/2015 [facility] HEMATOLOGY WBC 7.0 K/CMM 3.7 - 10.4 08/20/2015 [facility] Platelet 253 K/CMM 133 - 450 08/20/2015 [facility] MPV 9.0 fL 7.4 - 10.4 08/20/2015 [facility] MCHC 32.5 g/dL 32.0 - 36.0 08/20/2015 [facility] RDW 14.3 % 11.5 - 14.5 08/20/2015 [facility] MCH 26.3 pg 27.0 - 31.0 08/20/2015 [facility] Hct 49.0 % 42.0 - 54.0 08/20/2015 [facility] MCV 80.9 fL 80.0 - 94.0 08/20/2015 [facility] RBC 6.06 M/CMM 4.70 - 6.10 08/20/2015 [facility] Hgb 15.9 g/dL 14.0 - 18.0 08/20/2015 [facility] Eosinophils # 0.4 K/CMM 0.0 - 0.5 08/20/2015 [facility] Basophils # 0.1 K/CMM 0.0 - 0.2 08/20/2015 [facility] Segs 45.3 % 45.0 - 75.0 08/20/2015 [facility] HEMATOLOGY Segs-Bands # 3.2 K/CMM 1.5 - 8.1 08/20/2015 [facility] HEMATOLOGY Lymphocytes # 2.2 K/CMM 1.0 - 5.5 08/20/2015 [facility] HEMATOLOGY Monocytes # 1.1 K/CMM 0.0 - 0.8 08/20/2015 [facility] HEMATOLOGY Lymphocytes 31.7 % 20.0 - 40.0 08/20/2015 [facility] HEMATOLOGY Monocytes 16.0 % 2.0 - 12.0 08/20/2015 [facility] HEMATOLOGY Eosinophils 6.3 % 0.0 - 4.0 08/20/2015 [facility] HEMATOLOGY Basophils 0.7 % 0.0 - 1.0 08/20/2015 [facility] Chest 1view DX Chest 1view DX CLINICAL HISTORY: Chest pain. One view portable chest. Comparison 05/19/2015. Lungs are clear. Heart size normal. No pleural effusion or pneumothorax. IMPRESSION: Negative SL:12 08/20/2015 - - Read by: Bruno Ansari MD Dictated Date/time: 08/20/15 02:30 Electronically Signed by: Bruno Ansari MD 08/20/15 02:30 FINAL REPORT [facility] CARDIAC ENZYMES CK MB Index 1.0 0.0 - 2.5 05/19/2015 [facility] CARDIAC ENZYMES Troponin-I null 0.00 - 0.40 05/19/2015 [facility] CARDIAC ENZYMES proBNP 13 pg/mL 0 - 125 05/19/2015 [facility] CARDIAC ENZYMES CK MB 1.8 ng/mL 0.5 - 3.6 05/19/2015 [facility] CARDIAC ENZYMES Total CK 177 unit/L 12 - 191 05/19/2015 [facility] CHEM PANEL eGFR 83 mL/min/1.73m2 05/19/2015 Result Comment: The eGFR is calculated using the [...] from the National Kidney Disease Education Program (NKDEP) which additionally recommends that when the eGFR is used in patients with extremes of body mass index for purposes of drug dosing, the eGFR should be multiplied by the estimated BMI. [facility] CHEM PANEL A/G Ratio 1.1 0.7 - 1.6 05/19/2015 [facility] CHEM PANEL Globulin 3.7 g/dL 2.0 - 4.0 05/19/2015 [facility] CHEM PANEL BUN 12 mg/dL 7 - 22 05/19/2015 [facility] CHEM PANEL Glucose Lvl 94 mg/dL 70 - 99 05/19/2015 [facility] CHEM PANEL Alk Phos 47 unit/L 39 - 136 05/19/2015 [facility] CHEM PANEL Bili Total 0.8 mg/dL 0.2 - 1.3 05/19/2015 [facility] CHEM PANEL Calcium Lvl 8.9 mg/dL 8.5 - 10.5 05/19/2015 [facility] CHEM PANEL CO2 30 meq/L 24 - 32 05/19/2015 [facility] CHEM PANEL Total Protein 7.7 g/dL 6.4 - 8.4 05/19/2015 [facility] CHEM PANEL B/C Ratio 9 6 - 25 05/19/2015 [facility] CHEM PANEL AGAP 9.0 meq/L 10.0 - 20.0 05/19/2015 [facility] CHEM PANEL AST 12 unit/L 0 - 37 05/19/2015 [facility] CHEM PANEL Sodium Lvl 141 meq/L 135 - 145 05/19/2015 [facility] CHEM PANEL Creatinine Lvl 1.3 mg/dL 0.5 - 1.4 05/19/2015 [facility] CHEM PANEL Chloride Lvl 106 meq/L 95 - 109 05/19/2015 [facility] CHEM PANEL Potassium Lvl 4.0 meq/L 3.5 - 5.1 05/19/2015 [facility] CHEM PANEL ALT 27 unit/L 0 - 65 05/19/2015 [facility] CHEM PANEL Albumin Lvl 4.0 g/dL 3.5 - 5.0 05/19/2015 [facility] CHEM PANEL Magnesium Lvl 1.8 mg/dL 1.8 - 2.4 05/19/2015 [facility] HEMATOLOGY Basophils 1.2 % 0.0 - 1.0 05/19/2015 [facility] HEMATOLOGY Segs-Bands # 3.1 K/CMM 1.5 - 8.1 05/19/2015 [facility] HEMATOLOGY Lymphocytes # 1.5 K/CMM 1.0 - 5.5 05/19/2015 [facility] HEMATOLOGY Eosinophils # 0.4 K/CMM 0.0 - 0.5 05/19/2015 [facility] HEMATOLOGY Basophils # 0.2 K/CMM 0.0 - 0.2 05/19/2015 [facility] HEMATOLOGY Monocytes # 0.6 K/CMM 0.0 - 0.8 05/19/2015 [facility] HEMATOLOGY Eosinophils 6.8 % 0.0 - 4.0 05/19/2015 [facility] HEMATOLOGY Segs 54.1 % 45.0 - 75.0 05/19/2015 [facility] HEMATOLOGY Lymphocytes 25.5 % 20.0 - 40.0 05/19/2015 [facility] HEMATOLOGY Monocytes 10.4 % 2.0 - 12.0 05/19/2015 [facility] HEMATOLOGY Hct 48.8 % 42.0 - 54.0 05/19/2015 [facility] MCH 26.3 pg 27.0 - 31.0 05/19/2015 [facility] Hgb 15.6 g/dL 14.0 - 18.0 05/19/2015 [facility] MCV 82.2 fL 80.0 - 94.0 05/19/2015 [facility] MCHC 32.0 g/dL 32.0 - 36.0 05/19/2015 [facility] Platelet 245 K/CMM 133 - 450 05/19/2015 [facility] RDW 13.3 % 11.5 - 14.5 05/19/2015 [facility] MPV 9.3 fL 7.4 - 10.4 05/19/2015 [facility] WBC 5.8 K/CMM 3.7 - 10.4 05/19/2015 [facility] RBC 5.94 M/CMM 4.70 - 6.10 05/19/2015 [facility] IMMUNOLOGY CDC HIV 4th GEN Negative (05/19/15 9:27 AM) Negative 05/19/2015 [facility] URINE AND STOOL UA Protein Negative (05/19/15 9:27 AM) Negative 05/19/2015 [facility] URINE AND STOOL UA pH 6.0 5.0 - 8.0 05/19/2015 [facility] URINE AND STOOL UA Spec Grav 1.020 <=1.030 05/19/2015 [facility] URINE AND STOOL UA Turbidity Clear (05/19/15 9:27 AM) Clear 05/19/2015 [facility] URINE AND STOOL UA Glucose Negative (05/19/15 9:27 AM) Negative 05/19/2015 [facility] URINE AND STOOL UA Color STRAW 05/19/2015 [facility] URINE AND STOOL UA Bacteria None Seen (05/19/15 9:27 AM) None Seen 05/19/2015 [facility] URINE AND STOOL UA RBC None Seen (05/19/15 9:27 AM) 0 - 2 05/19/2015 [facility] URINE AND STOOL UA Ketones Negative *NA* (05/19/15 9:27 AM) Negative 05/19/2015 [facility] URINE AND STOOL UA Bili Negative *NA* (05/19/15 9:27 AM) Negative 05/19/2015 [facility] URINE AND STOOL UA Urobilinogen 0.2 EU/dL 0.1 - 1.0 05/19/2015 [facility] URINE AND STOOL UA Blood Negative (05/19/15 9:27 AM) Negative 05/19/2015 [facility] URINE AND STOOL UA Nitrite Negative (05/19/15 9:27 AM) Negative 05/19/2015 [facility] URINE AND STOOL UA Leuk Est Negative (05/19/15 9:27 AM) Negative 05/19/2015 [facility] URINE AND STOOL UA WBC None Seen (05/19/15 9:27 AM) None Seen 05/19/2015 [facility] URINE AND STOOL UA Sq Epi Occasional /LPF Few /LPF 05/19/2015 [facility] Chest 1view DX Chest 1view DX NAME: ABDIAZIZ ABRAMS : 1980 SEX: M Ordering Physician: Blayne Cerrato Chest 1view : May 19, 2015 09:35:00 AM. CLINICAL INDICATION: Chest pain / See Clinic Indication Comparison Examination: 04/03/2015. FINDINGS: Portable AP view of the chest was performed. Heart size is within normal limits. No confluent infiltrate or mass. No pleural effusion or pneumothorax. No acute osseous abnormality. IMPRESSION: 1. No acute process identified in the chest. SL: 24 05/19/2015 - - Read by: Misael Su MD Dictated Date/time: 05/19/15 09:41 Electronically Signed by: Misael Su MD 05/19/15 09:41 FINAL REPORT [facility] Chest 2 views DX Chest 2 views DX CHEST 2 VIEWS HX: Shortness of Breath COMPARISON: 01/11/2015 FINDINGS: The lungs are free of consolidation or pleural effusion and the mediastinal silhouette is within normal limits of size. The visualized osseous structures are grossly negative. IMPRESSION: Negative chest. SL: 12 04/03/2015 - - Read by: Mitchel Yanez MD Dictated Date/time: 04/03/15 17:36 Electronically Signed by: Mitchel Yanez MD 04/03/15 17:36 FINAL REPORT [facility] CARDIAC ENZYMES CK MB Index 0.3 0.0 - 2.5 01/11/2015 [facility] CARDIAC ENZYMES CK MB 0.9 ng/mL 0.5 - 3.6 01/11/2015 [facility] CARDIAC ENZYMES Troponin-I null 0.00 - 0.40 01/11/2015 [facility] CARDIAC ENZYMES Total CK 279 unit/L 12 - 191 01/11/2015 [facility] CHEM PANEL Lipase Lvl 155 unit/L 73 - 393 01/11/2015 [facility] CHEM PANEL A/G Ratio 0.9 0.7 - 1.6 01/11/2015 [facility] CHEM PANEL Globulin 4.5 g/dL 2.0 - 4.0 01/11/2015 [facility] CHEM PANEL Bili Total 0.6 mg/dL 0.2 - 1.3 01/11/2015 [facility] CHEM PANEL AGAP 8.3 meq/L 10.0 - 20.0 01/11/2015 [facility] CHEM PANEL Alk Phos 53 unit/L 39 - 136 01/11/2015 [facility] CHEM PANEL B/C Ratio 8 6 - 25 01/11/2015 [facility] CHEM PANEL Glucose Lvl 84 mg/dL 70 - 99 01/11/2015 2Interpretive Data: Adult reference range values reflect the clinical guidelines of the [place] [employer]. [facility] CHEM PANEL Albumin Lvl 4.2 g/dL 3.5 - 5.0 01/11/2015 [facility] CHEM PANEL ALT 25 unit/L 0 - 65 01/11/2015 [facility] CHEM PANEL Total Protein 8.7 g/dL 6.4 - 8.4 01/11/2015 [facility] CHEM PANEL BUN 9 mg/dL 7 - 22 01/11/2015 [facility] CHEM PANEL CO2 29 meq/L 24 - 32 01/11/2015 [facility] CHEM PANEL AST 21 unit/L 0 - 37 01/11/2015 [facility] CHEM PANEL eGFR 102 mL/min/1.73m2 01/11/2015 1Result Comment: The eGFR is calculated using [...] from the National Kidney Disease Education Program (NKDEP) which additionally recommends that when the eGFR is used in patients with extremes of body mass index for purposes of drug dosing, the eGFR should be multiplied by the estimated BMI. [facility] CHEM PANEL Chloride Lvl 105 meq/L 95 - 109 01/11/2015 [facility] CHEM PANEL Calcium Lvl 8.9 mg/dL 8.5 - 10.5 01/11/2015 [facility] CHEM PANEL Potassium Lvl 4.3 meq/L 3.5 - 5.1 01/11/2015 [facility] CHEM PANEL Sodium Lvl 138 meq/L 135 - 145 01/11/2015 [facility] CHEM PANEL Creatinine Lvl 1.1 mg/dL 0.5 - 1.4 01/11/2015 [facility] Eosinophils # 0.2 K/CMM 0.0 - 0.5 01/11/2015 [facility] Monocytes # 0.6 K/CMM 0.0 - 0.8 01/11/2015 [facility] Basophils 0.8 % 0.0 - 1.0 01/11/2015 [facility] Lymphocytes # 1.4 K/CMM 1.0 - 5.5 01/11/2015 [facility] Segs-Bands # 3.7 K/CMM 1.5 - 8.1 01/11/2015 [facility] Monocytes 9.8 % 2.0 - 12.0 01/11/2015 [facility] Eosinophils 3.8 % 0.0 - 4.0 01/11/2015 [facility] Lymphocytes 24.3 % 20.0 - 40.0 01/11/2015 [facility] Segs 61.3 % 45.0 - 75.0 01/11/2015 [facility] MCH 27.1 pg 27.0 - 31.0 01/11/2015 [facility] HEMATOLOGY Hgb 15.9 g/dL 14.0 - 18.0 01/11/2015 [facility] HEMATOLOGY Hct 47.7 % 42.0 - 54.0 01/11/2015 [facility] HEMATOLOGY MCV 81.0 fL 80.0 - 94.0 01/11/2015 [facility] HEMATOLOGY WBC 6.0 K/CMM 3.7 - 10.4 01/11/2015 [facility] HEMATOLOGY RBC 5.89 M/CMM 4.70 - 6.10 01/11/2015 [facility] HEMATOLOGY MCHC 33.4 g/dL 32.0 - 36.0 01/11/2015 [facility] HEMATOLOGY RDW 14.2 % 11.5 - 14.5 01/11/2015 [facility] HEMATOLOGY Platelet 257 K/CMM 133 - 450 01/11/2015 [facility] HEMATOLOGY MPV 9.0 fL 7.4 - 10.4 01/11/2015 [facility] URINE AND STOOL UA Color Ltyellow 01/11/2015 [facility] URINE AND STOOL UA Urobilinogen <=1.0 mg/dL 0.1 - 1.0 01/11/2015 [facility] URINE AND STOOL UA Sq Epi None Seen 01/11/2015 [facility] URINE AND STOOL UA RBC 1 /HPF 0 - 2 01/11/2015 [facility] URINE AND STOOL UA Bili Negative *NA* (01/11/15 11:51 AM) Negative 01/11/2015 [facility] URINE AND STOOL UA Turbidity Clear (01/11/15 11:51 AM) Clear 01/11/2015 [facility] URINE AND STOOL UA pH 6.0 5.0 - 8.0 01/11/2015 [facility] URINE AND STOOL UA Spec Grav 1.016 <=1.030 01/11/2015 [facility] URINE AND STOOL UA Protein Negative mg/dL Negative mg/dL 01/11/2015 [facility] URINE AND STOOL UA Nitrite Negative (01/11/15 11:51 AM) Negative 01/11/2015 [facility] URINE AND STOOL UA Ketones Negative mg/dL Negative mg/dL 01/11/2015 [facility] URINE AND STOOL UA Glucose Negative mg/dL Negative mg/dL 01/11/2015 [facility] URINE AND STOOL UA WBC null 0 - 5 01/11/2015 [facility] URINE AND STOOL UA Blood Negative (01/11/15 11:51 AM) Negative 01/11/2015 [facility] URINE AND STOOL UA Leuk Est Negative (01/11/15 11:51 AM) Negative 01/11/2015 [facility] Chest 1view DX Chest 1view DX HISTORY: Abnormal chest sounds and syncope. One view portable chest. Comparison 05/01/2014. Lungs are clear. Heart size normal. No pleural effusion or pneumothorax. IMPRESSION: Negative SL: 14 01/11/2015 - - Read by: Bruno Ansari MD Dictated Date/time: 01/11/15 12:00 Electronically Signed by: Bruno Ansari MD 01/11/15 12:00 FINAL REPORT [facility] CARDIAC ENZYMES CK MB Index 0.3 0.0 - 2.5 05/01/2014 [facility] CARDIAC ENZYMES CK MB 1.2 ng/mL 0.5 - 3.6 05/01/2014 [facility] CARDIAC ENZYMES Troponin-I null 0.00 - 0.40 05/01/2014 [facility] CARDIAC ENZYMES Total CK 378 unit/L 12 - 191 05/01/2014 [facility] CHEM PANEL eGFR 83 mL/min/1.73m2 05/01/2014 1Result Comment: The eGFR is calculated using [...] from the National Kidney Disease Education Program (NKDEP) which additionally recommends that when the eGFR is used in patients with extremes of body mass index for purposes of drug dosing, the eGFR should be multiplied by the estimated BMI. [facility] CHEM PANEL Total Protein 8.2 g/dL 6.4 - 8.4 05/01/2014 [facility] CHEM PANEL Albumin Lvl 4.4 g/dL 3.5 - 5.0 05/01/2014 [facility] CHEM PANEL ALT 27 unit/L 0 - 65 05/01/2014 [facility] CHEM PANEL A/G Ratio 1.2 0.7 - 1.6 05/01/2014 [facility] [facility]EL AGAP 14.5 meq/L 10.0 - 20.0 05/01/2014 [facility] CHEM PANEL B/C Ratio 9 6 - 25 05/01/2014 [facility] CHEM PANEL Globulin 3.8 g/dL 2.0 - 4.0 05/01/2014 [facility] CHEM PANEL AST 17 unit/L 0 - 37 05/01/2014 [facility] CHEM PANEL Alk Phos 49 unit/L 39 - 136 05/01/2014 [facility] CHEM PANEL Bili Total 0.9 mg/dL 0.2 - 1.3 05/01/2014 [facility] CHEM PANEL Chloride Lvl 104 meq/L 95 - 109 05/01/2014 [facility] CHEM PANEL CO2 26 meq/L 24 - 32 05/01/2014 [facility] CHEM PANEL Calcium Lvl 9.8 mg/dL 8.5 - 10.5 05/01/2014 [facility] CHEM PANEL BUN 12 mg/dL 7 - 22 05/01/2014 [facility] CHEM PANEL Creatinine Lvl 1.3 mg/dL 0.5 - 1.4 05/01/2014 [facility] CHEM PANEL Potassium Lvl 3.5 meq/L 3.5 - 5.1 05/01/2014 [facility] CHEM PANEL Sodium Lvl 141 meq/L 135 - 145 05/01/2014 [facility] CHEM PANEL Glucose Lvl 96 mg/dL 70 - 99 05/01/2014 2Interpretive Data: Adult reference range values reflect the clinical guidelines of the [place] [employer]. [facility] HEMATOLOGY Monocytes # 0.9 K/CMM 0.0 - 0.8 05/01/2014 [facility] HEMATOLOGY Lymphocytes # 1.8 K/CMM 1.0 - 5.5 05/01/2014 [facility] HEMATOLOGY Eosinophils # 0.1 K/CMM 0.0 - 0.5 05/01/2014 [facility] HEMATOLOGY Segs 57.7 % 45.0 - 75.0 05/01/2014 [facility] HEMATOLOGY Eosinophils 2.2 % 0.0 - 4.0 05/01/2014 [facility] HEMATOLOGY Monocytes 12.8 % 2.0 - 12.0 05/01/2014 [facility] HEMATOLOGY Basophils 0.6 % 0.0 - 1.0 05/01/2014 [facility] HEMATOLOGY Segs-Bands # 3.9 K/CMM 1.5 - 8.1 05/01/2014 [facility] HEMATOLOGY Lymphocytes 26.7 % 20.0 - 40.0 05/01/2014 [facility] HEMATOLOGY RDW 14.3 % 11.5 - 14.5 05/01/2014 [facility] HEMATOLOGY WBC 6.8 K/CMM 3.7 - 10.4 05/01/2014 [facility] HEMATOLOGY Platelet 254 K/CMM 133 - 450 05/01/2014 [facility] HEMATOLOGY MCHC 32.3 g/dL 32.0 - 36.0 05/01/2014 [facility] HEMATOLOGY MPV 8.7 fL 7.4 - 10.4 05/01/2014 [facility] HEMATOLOGY MCV 79.9 fL 80.0 - 94.0 05/01/2014 [facility] HEMATOLOGY Hgb 14.3 g/dL 14.0 - 18.0 05/01/2014 [facility] MCH 25.8 pg 27.0 - 31.0 05/01/2014 [facility] Hct 44.1 % 42.0 - 54.0 05/01/2014 [facility] RBC 5.53 M/CMM 4.70 - 6.10 05/01/2014 [facility] Chest 1view Chest 1view Name: ABDIAZIZ ARBAMS : 1980 SEX: M Ordering Physician: Jack Mccoy Chest 1view : May 01, 2014 05:05:00 AM. CLINICAL INDICATION: Chest pain Comparison Examination: None Clinical History: Chest pain FINDINGS: AP view of the chest was performed. The lung volumes are normal without focal consolidation, pleural effusions or pneumothorax. The cardiomediastinal contours are normal on this AP view. There are no clinically significant osseous abnormalities noted. IMPRESSION: No acute cardiopulmonary abnormality. SL:24 05/01/2014 - - Read by: Ayala Gonzalez MD Dictated Date/time: 05/01/14 06:26 Electronically Signed by: Ayala Gonzalez MD 05/01/14 06:27 FINAL REPORT [facility] Vital Signs Vital Sign Value Date Comments Source BMI Calculated 25.14 03/31/2018 [facility] Weight 75 03/31/2018 [facility] Systolic (mm Hg) 115 03/31/2018 [facility] Diastolic (mm Hg) 68 03/31/2018 [facility] Height 172.72 cm 03/31/2018 [facility] Temperature Oral (F) 97.1 F 03/31/2018 [facility] Heart Rate 72 03/31/2018 [facility] Respitory Rate 18 03/31/2018 [facility] Heart Rate 68 03/02/2018 [facility] Temperature Oral (F) 98.3 F 03/02/2018 [facility] Systolic (mm Hg) 120 03/02/2018 [facility] Diastolic (mm Hg) 81 03/02/2018 [facility] Respitory Rate 18 03/02/2018 [facility] Systolic (mm Hg) 133 03/02/2018 [facility] Diastolic (mm Hg) 78 03/02/2018 [facility] Height 172.72 cm 03/02/2018 [facility] BMI Calculated 25.29 03/02/2018 [facility] Weight 75.455 03/02/2018 [facility] Heart Rate 70 03/02/2018 [facility] Systolic (mm Hg) 133 03/02/2018 [facility] Diastolic (mm Hg) 78 03/02/2018 [facility] Temperature Oral (F) 98.3 F 03/02/2018 [facility] Respitory Rate 18 03/02/2018 [facility] Height 172.72 cm 11/25/2017 [facility] BMI Calculated 24.07 11/25/2017 [facility] Weight 71.818 11/25/2017 [facility] Heart Rate 75 11/25/2017 [facility] Respitory Rate 18 11/25/2017 [facility] Temperature Oral (F) 98.3 F 11/25/2017 [facility] Systolic (mm Hg) 135 11/25/2017 [facility] Diastolic (mm Hg) 89 11/25/2017 [facility] Temperature Oral (F) 98.5 F 06/23/2017 [facility] Systolic (mm Hg) 127 06/23/2017 [facility] Diastolic (mm Hg) 86 06/23/2017 [facility] Respitory Rate 20 06/23/2017 [facility] Heart Rate 65 06/23/2017 [facility] Weight 75 06/23/2017 [facility] Heart Rate 71 06/23/2017 [facility] Respitory Rate 16 06/23/2017 [facility] Systolic (mm Hg) 137 06/23/2017 [facility] Diastolic (mm Hg) 86 06/23/2017 [facility] BMI Calculated 25.14 06/23/2017 [facility] Height 172.72 cm 06/23/2017 [facility] Temperature Oral (F) 97.8 F 06/23/2017 [facility] Temperature Oral (F) 98.0 F 02/20/2017 [facility] Height 172.72 cm 02/20/2017 [facility] Weight 78.182 02/20/2017 [facility] BMI Calculated 26.21 02/20/2017 [facility] Heart Rate 70 02/20/2017 [facility] Respitory Rate 16 02/20/2017 [facility] Systolic (mm Hg) 115 02/20/2017 [facility] Diastolic (mm Hg) 74 02/20/2017 [facility] Temperature Oral (F) 98.4 F 12/16/2016 [facility] Systolic (mm Hg) 128 12/16/2016 [facility] Diastolic (mm Hg) 78 12/16/2016 [facility] Heart Rate 78 12/16/2016 [facility] Respitory Rate 16 12/16/2016 [facility] BMI Calculated 27.12 12/16/2016 [facility] Temperature Oral (F) 98.7 F 12/16/2016 [facility] Weight 80.909 12/16/2016 [facility] Height 172.72 cm 12/16/2016 [facility] Heart Rate 80 12/16/2016 [facility] Respitory Rate 16 12/16/2016 [facility] Systolic (mm Hg) 130 12/16/2016 [facility] Diastolic (mm Hg) 85 12/16/2016 [facility] Temperature Oral (F) 97.6 F 10/10/2016 [facility] Respitory Rate 20 10/10/2016 [facility] Systolic (mm Hg) 125 10/10/2016 [facility] Diastolic (mm Hg) 74 10/10/2016 [facility] Systolic (mm Hg) 135 10/10/2016 [facility] Diastolic (mm Hg) 79 10/10/2016 [facility] Respitory Rate 20 10/10/2016 [facility] Temperature Oral (F) 98.1 F 10/10/2016 [facility] BMI Calculated 26.82 10/10/2016 [facility] Respitory Rate 18 10/10/2016 [facility] Systolic (mm Hg) 138 10/10/2016 [facility] Diastolic (mm Hg) 83 10/10/2016 [facility] Heart Rate 71 10/10/2016 [facility] Height 172.72 cm 10/10/2016 [facility] Temperature Oral (F) 98.0 F 10/10/2016 [facility] Weight 80 10/10/2016 [facility] Heart Rate 72 05/27/2016 [facility] Systolic (mm Hg) 117 05/27/2016 [facility] Diastolic (mm Hg) 64 05/27/2016 [facility] Respitory Rate 20 05/27/2016 [facility] Temperature Oral (F) 97.8 F 05/27/2016 [facility] Systolic (mm Hg) 122 05/27/2016 [facility] Diastolic (mm Hg) 64 05/27/2016 [facility] Heart Rate 70 05/27/2016 [facility] Respitory Rate 16 05/27/2016 [facility] Height 172.72 cm 05/27/2016 [facility] Weight 79.091 05/27/2016 [facility] BMI Calculated 26.51 05/27/2016 [facility] Systolic (mm Hg) 120 05/27/2016 [facility] Diastolic (mm Hg) 68 05/27/2016 [facility] Temperature Oral (F) 97.7 F 05/27/2016 [facility] Respitory Rate 18 05/27/2016 [facility] Heart Rate 74 05/27/2016 [facility] Respitory Rate 18 05/22/2016 [facility] Heart Rate 70 05/22/2016 [facility] Temperature Oral (F) 98.2 F 05/22/2016 [facility] Systolic (mm Hg) 128 05/22/2016 [facility] Diastolic (mm Hg) 77 05/22/2016 [facility] Heart Rate 69 05/22/2016 [facility] Respitory Rate 18 05/22/2016 [facility] Systolic (mm Hg) 127 05/22/2016 [facility] Diastolic (mm Hg) 81 05/22/2016 [facility] Respitory Rate 16 05/22/2016 [facility] Temperature Oral (F) 98.0 F 05/22/2016 [facility] Heart Rate 69 05/22/2016 [facility] Weight 81.091 05/22/2016 [facility] Height 172.72 cm 05/22/2016 [facility] BMI Calculated 27.18 05/22/2016 [facility] Systolic (mm Hg) 135 05/22/2016 [facility] Diastolic (mm Hg) 75 05/22/2016 [facility] Respitory Rate 19 02/04/2016 [facility] Temperature Oral (F) 97.3 F 02/04/2016 [facility] Height 172.72 cm 02/04/2016 [facility] Weight 85.182 02/04/2016 [facility] BMI Calculated 28.55 02/04/2016 [facility] Systolic (mm Hg) 143 02/04/2016 [facility] Diastolic (mm Hg) 81 02/04/2016 [facility] Respitory Rate 14 02/04/2016 [facility] Heart Rate 93 02/04/2016 [facility] Weight 85 02/03/2016 [facility] BMI Calculated 28.49 02/03/2016 [facility] Height 172.72 cm 02/03/2016 [facility] Systolic (mm Hg) 134 02/03/2016 [facility] Diastolic (mm Hg) 77 02/03/2016 [facility] Heart Rate 71 02/03/2016 [facility] Respitory Rate 18 02/03/2016 [facility] Temperature Oral (F) 98.3 F 02/03/2016 [facility] Temperature Oral (F) 98.2 F 12/10/2015 [facility] Respitory Rate 19 12/10/2015 [facility] Heart Rate 74 12/10/2015 [facility] Systolic (mm Hg) 109 12/10/2015 [facility] Diastolic (mm Hg) 79 12/10/2015 [facility] Heart Rate 58 12/10/2015 [facility] Systolic (mm Hg) 113 12/10/2015 [facility] Diastolic (mm Hg) 77 12/10/2015 [facility] Respitory Rate 18 12/10/2015 [facility] Weight 81.818 12/10/2015 [facility] Temperature Oral (F) 98.7 F 12/10/2015 [facility] Respitory Rate 19 12/10/2015 [facility] Height 172.72 cm 12/10/2015 [facility] Systolic (mm Hg) 141 12/10/2015 [facility] Diastolic (mm Hg) 73 12/10/2015 [facility] Heart Rate 83 12/10/2015 [facility] BMI Calculated 27.43 12/10/2015 [facility] Heart Rate 62 11/25/2015 [facility] Respitory Rate 18 11/25/2015 [facility] Temperature Oral (F) 98.1 F 11/25/2015 [facility] Systolic (mm Hg) 119 11/25/2015 [facility] Diastolic (mm Hg) 77 11/25/2015 [facility] Weight 83.807 11/25/2015 [facility] BMI Calculated 28.09 11/25/2015 [facility] Heart Rate 71 11/25/2015 [facility] Respitory Rate 18 11/25/2015 [facility] Height 172.72 cm 11/25/2015 [facility] Temperature Oral (F) 98.2 F 11/25/2015 [facility] Systolic (mm Hg) 132 11/25/2015 [facility] Diastolic (mm Hg) 83 11/25/2015 [facility] Systolic (mm Hg) 127 11/18/2015 [facility] Diastolic (mm Hg) 84 11/18/2015 [facility] Heart Rate 62 11/18/2015 [facility] Respitory Rate 18 11/18/2015 [facility] Systolic (mm Hg) 133 11/18/2015 [facility] Diastolic (mm Hg) 82 11/18/2015 [facility] Respitory Rate 18 11/18/2015 [facility] Heart Rate 61 11/18/2015 [facility] Systolic (mm Hg) 127 11/18/2015 [facility] Diastolic (mm Hg) 80 11/18/2015 [facility] Respitory Rate 18 11/18/2015 [facility] Heart Rate 66 11/18/2015 [facility] Height 172.72 cm 11/18/2015 [facility] Weight 84.091 11/18/2015 [facility] BMI Calculated 28.19 11/18/2015 [facility] Temperature Oral (F) 98.0 F 11/18/2015 [facility] Temperature Oral (F) 97.9 F 10/31/2015 [facility] Respitory Rate 18 10/31/2015 [facility] Systolic (mm Hg) 135 10/31/2015 [facility] Diastolic (mm Hg) 79 10/31/2015 [facility] Heart Rate 65 10/31/2015 [facility] Height 172.72 cm 10/30/2015 [facility] BMI Calculated 27.35 10/30/2015 [facility] Weight 81.591 10/30/2015 [facility] Respitory Rate 18 10/30/2015 [facility] Temperature Oral (F) 98.6 F 10/30/2015 [facility] Heart Rate 69 10/30/2015 [facility] Systolic (mm Hg) 132 10/30/2015 [facility] Diastolic (mm Hg) 78 10/30/2015 [facility] Heart Rate 58 08/20/2015 [facility] Respitory Rate 16 08/20/2015 [facility] Systolic (mm Hg) 111 08/20/2015 [facility] Diastolic (mm Hg) 79 08/20/2015 [facility] Diastolic (mm Hg) 85 08/20/2015 [facility] Systolic (mm Hg) 145 08/20/2015 [facility] Respitory Rate 17 08/20/2015 [facility] Temperature Oral (F) 98.1 F 08/20/2015 [facility] Heart Rate 79 08/20/2015 [facility] Weight 81.364 08/20/2015 [facility] BMI Calculated 27.27 08/20/2015 [facility] Height 172.72 cm 08/20/2015 [facility] Temperature Oral (F) 97.4 F 08/20/2015 [facility] Systolic (mm Hg) 144 08/20/2015 [facility] Diastolic (mm Hg) 98 08/20/2015 [facility] Respitory Rate 18 08/20/2015 [facility] Heart Rate 74 08/20/2015 [facility] Respitory Rate 19 05/25/2015 [facility] Systolic (mm Hg) 133 05/25/2015 [facility] Diastolic (mm Hg) 78 05/25/2015 [facility] Heart Rate 70 05/25/2015 [facility] Temperature Oral (F) 98.1 F 05/25/2015 [facility] Temperature Oral (F) 98.1 F 05/25/2015 [facility] Weight 80.455 05/25/2015 [facility] Respitory Rate 18 05/25/2015 [facility] Heart Rate 74 05/25/2015 [facility] Systolic (mm Hg) 129 05/25/2015 [facility] Diastolic (mm Hg) 89 05/25/2015 [facility] Heart Rate 58 05/19/2015 [facility] Respitory Rate 20 05/19/2015 [facility] Systolic (mm Hg) 129 05/19/2015 [facility] Diastolic (mm Hg) 74 05/19/2015 [facility] Temperature Oral (F) 97.2 F 05/19/2015 [facility] Heart Rate 59 05/19/2015 [facility] Systolic (mm Hg) 137 05/19/2015 [facility] Diastolic (mm Hg) 81 05/19/2015 [facility] Respitory Rate 18 05/19/2015 [facility] Systolic (mm Hg) 118 05/19/2015 [facility] Diastolic (mm Hg) 80 05/19/2015 [facility] Respitory Rate 18 05/19/2015 [facility] Heart Rate 62 05/19/2015 [facility] Weight 82.841 05/19/2015 [facility] Height 172.72 cm 05/19/2015 [facility] BMI Calculated 27.77 05/19/2015 [facility] Temperature Oral (F) 96.7 F 05/19/2015 [facility] Height 172.72 cm 04/03/2015 [facility] Weight 81.818 04/03/2015 [facility] BMI Calculated 27.43 04/03/2015 [facility] Heart Rate 81 04/03/2015 [facility] Respitory Rate 20 04/03/2015 [facility] Systolic (mm Hg) 120 04/03/2015 [facility] Diastolic (mm Hg) 78 04/03/2015 [facility] Temperature Oral (F) 97.9 F 04/03/2015 [facility] Temperature Oral (F) 98.0 F 01/11/2015 [facility] Systolic (mm Hg) 124 01/11/2015 [facility] Diastolic (mm Hg) 83 01/11/2015 [facility] Heart Rate 55 01/11/2015 [facility] Respitory Rate 18 01/11/2015 [facility] Systolic (mm Hg) 126 01/11/2015 [facility] Diastolic (mm Hg) 73 01/11/2015 [facility] Heart Rate 75 01/11/2015 [facility] Respitory Rate 18 01/11/2015 [facility] Temperature Oral (F) 97.9 F 01/11/2015 [facility] Heart Rate 57 01/11/2015 [facility] Respitory Rate 18 01/11/2015 [facility] Diastolic (mm Hg) 76 01/11/2015 [facility] Systolic (mm Hg) 121 01/11/2015 [facility] Weight 81.818 01/11/2015 [facility] Temperature Oral (F) 97.6 F 01/11/2015 [facility] Height 172.72 cm 01/11/2015 [facility] BMI Calculated 27.43 01/11/2015 [facility] Weight 79.545 05/01/2014 [facility] BMI Calculated 26.66 05/01/2014 [facility] Height 172.72 cm 05/01/2014 [facility] Heart Rate 90 05/01/2014 [facility] Respitory Rate 18 05/01/2014 [facility] Temperature Oral (F) 98.1 F 05/01/2014 [facility] Diastolic (mm Hg) 98 05/01/2014 [facility] Systolic (mm Hg) 146 05/01/2014 [facility] Encounters Location Location Details Encounter Type Encounter Number Reason For Visit Attending Provider ADM Date DC Date Status Source [facility] [id number] Rufino Rose 05/01/2014 05/01/2014 [facility] [id number] Rodrigues 01/11/2015 01/11/2015 [facility] [id number] Rd Rodrigues 04/03/2015 04/04/2015 [facility] [id number] Blayne Cerrato 05/19/2015 05/19/2015 [facility] [id number] Tracy Parra 05/25/2015 05/25/2015 [facility] [id number] Arletnicholas Cast 08/20/2015 08/20/2015 [facility] [id number] Gregory Musa 10/30/2015 10/31/2015 [facility] [id number] Diony Vázquez Jr 11/18/2015 11/18/2015 [facility] [id number] Rufino Rose 11/25/2015 11/25/2015 [facility] [id number] Blayne Saqib 12/10/2015 12/10/[address] [facility] [id number] David Guerrerokaylee 02/03/2016 02/03/2016 [facility] [id number] Jack Mccoy 02/04/2016 02/04/2016 [facility] [id number] Lisbet Jas Dailey 03/05/2016 03/06/2016 [facility] Outpatient Imaging [facility] Emergency [id number] Diony Vázquez Jr 05/22/2016 05/22/2016 [facility] Emergency [id number] Rufino Rose 05/27/2016 05/27/2016 [facility] Emergency [id number] Vasile Tapiaeal 10/10/2016 10/10/2016 [facility] Emergency [id number] Samgurvinder Reese 12/16/2016 12/16/2016 [facility] Emergency [id number] Feng Margy 02/20/2017 02/20/2017 [facility] Emergency [id number] Samar Reese 06/23/2017 06/23/2017 [facility] [id number] Feng Margy 11/25/2017 11/25/2017 [facility] Emergency [id number] Asim Garrison 03/02/2018 03/02/2018 [facility] Emergency [id number] Link Hogue 03/31/2018 03/31/2018 [facility] Outpatient [id number] [facility] 07/20/2018 [facility] Outpatient [id number] [facility] 08/31/2018 Active [facility] Procedures Procedure Code Date Perfomer Comments Source Appendectomy [id number] 10/06/2013 [facility] Appendectomy [id number] 10/06/2013 [facility] Appendectomy [id number] 10/06/2013 [facility] [id number] [facility]
--- OUTSIDE RECORDS SUMMARY | 2018-07-22 18:03 | XMS REPORT | Summary of Care ---
Author Organization Unknown Address Unknown Phone Unavailable Care Team Providers Care Service Member Name Role Phone NONE, None PCP Unavailable Encounter [facility](FIN) [id number] Date(s): 05/01/14 - 05/01/14 [facility] [address] Discharge Diagnosis: Atypical chest pain Discharge Diagnosis: Hypertension Discharge Disposition: Home Physician Attending: Rufino Rose MD Reason for Visit CHEST PAIN Vital Signs Most recent to 1 oldest [Reference Range]: Height 172.72 cm (05/01/14 4:58 AM) Temperature Oral 98.1 DegF [96.4-99.1 DegF] (05/01/14 4:58 AM) Systolic Blood 146 mmHg Pressure [90-140 *HI* mmHg] (05/01/14 4:58 AM) Diastolic Blood 98 mmHg Pressure [60-90 *HI* mmHg] (05/01/14 4:58 AM) Respiratory Rate 18 BRMIN [14-20 BRMIN] (05/01/14 4:58 AM) Peripheral Pulse 90 bpm Rate [60-100 bpm] (05/01/14 4:58 AM) Weight 79.545 kg (05/01/14 4:58 AM) Body Mass Index 26.66 m2 (05/01/14 4:58 AM) Problem List No data available for this section Allergies, Adverse Reactions, Alerts Substance Reaction Severity Status iodine Active Medications Saline Flush 0.9% 5 mL, Route: IVP, Drug Form: INJ, Dosing Weight 79.545, kg, Q8H, PRN Line Flush, Start date: 05/01/14 5:05:00, Duration: 1 doses or times, Stop date: Limited # of times, Administer at least once every 8 hours Special Instructions: Administer at least once every 8 hours Notes: (Same as: BD Posiflush) Start Date: 05/01/14 Stop Date: 05/01/14 Status: Discontinued Results ELECTROLYTES Most recent to 1 oldest [Reference Range]: Sodium Lvl [135-145 141 mEq/L mEq/L] (05/01/14 5:14 AM) Potassium Lvl 3.5 mEq/L [3.5-5.1 mEq/L] (05/01/14 5:14 AM) Chloride Lvl [95-109 104 mEq/L mEq/L] (05/01/14 5:14 AM) CO2 [24-32 mEq/L] 26 mEq/L (05/01/14 5:14 AM) AGAP [10.0-20.0 14.5 mEq/L mEq/L] (05/01/14 5:14 AM) CHEM PANEL Most recent to 1 oldest [Reference Range]: Creatinine Lvl 1.3 mg/dL [0.5-1.4 mg/dL] (05/01/14 5:14 AM) eGFR 83 mL/min/1.73m2 1 *NA* (05/01/14 5:14 AM) BUN [7-22 mg/dL] 12 mg/dL (05/01/14 5:14 AM) B/C Ratio [6-25] 9 (05/01/14 5:14 AM) Glucose Lvl [70-99 96 mg/dL 2 mg/dL] (05/01/14 5:14 AM) Total Protein 8.2 g/dL [6.4-8.4 g/dL] (05/01/14 5:14 AM) Albumin Lvl [3.5-5.0 4.4 g/dL g/dL] (05/01/14 5:14 AM) Globulin [2.0-4.0 3.8 g/dL g/dL] (05/01/14 5:14 AM) A/G Ratio [0.7-1.6] 1.2 (05/01/14 5:14 AM) Calcium Lvl 9.8 mg/dL [8.5-10.5 mg/dL] (05/01/14 5:14 AM) ALT [0-65 unit/L] 27 unit/L (05/01/14 5:14 AM) AST [0-37 unit/L] 17 unit/L (05/01/14 5:14 AM) Alk Phos [39-136 49 unit/L unit/L] (05/01/14 5:14 AM) Bili Total [0.2-1.3 0.9 mg/dL mg/dL] (05/01/14 5:14 AM) 1Result Comment: The eGFR is calculated [...] be mul tiplied by the estimated BMI. 2Interpretive Data: Adult reference range values reflect the clinical guidelines of the [employer] [employer]. CARDIAC ENZYMES Most recent to 1 oldest [Reference Range]: Total CK [12-191 378 unit/L unit/L] *HI* (05/01/14 5:14 AM) CK MB [0.5-3.6 1.2 ng/mL ng/mL] (05/01/14 5:14 AM) CK MB Index 0.3 [0.0-2.5] (05/01/14 5:14 AM) Troponin-I <0.02 ng/mL [0.00-0.40 ng/mL] (05/01/14 5:14 AM) HEMATOLOGY Most recent to 1 oldest [Reference Range]: WBC [3.7-10.4 K/CMM] 6.8 K/CMM (05/01/14 5:14 AM) RBC [4.70-6.10 5.53 M/CMM M/CMM] (05/01/14 5:14 AM) Hgb [14.0-18.0 g/dL] 14.3 g/dL (05/01/14 5:14 AM) Hct [42.0-54.0 %] 44.1 % (05/01/14 5:14 AM) MCV [80.0-94.0 fL] 79.9 fL *LOW* (05/01/14 5:14 AM) MCH [27.0-31.0 pg] 25.8 pg *LOW* (05/01/14 5:14 AM) MCHC [32.0-36.0 32.3 g/dL g/dL] (05/01/14 5:14 AM) RDW [11.5-14.5 %] 14.3 % (05/01/14 5:14 AM) Platelet [133-450 254 K/CMM K/CMM] (05/01/14 5:14 AM) MPV [7.4-10.4 fL] 8.7 fL (05/01/14 5:14 AM) Segs [45.0-75.0 %] 57.7 % (05/01/14 5:14 AM) Lymphocytes 26.7 % [20.0-40.0 %] (05/01/14 5:14 AM) Monocytes [2.0-12.0 12.8 % %] *HI* (05/01/14 5:14 AM) Eosinophils [0.0-4.0 2.2 % %] (05/01/14 5:14 AM) Basophils [0.0-1.0 0.6 % %] (05/01/14 5:14 AM) Segs-Bands # 3.9 K/CMM [1.5-8.1 K/CMM] (05/01/14 5:14 AM) Lymphocytes # 1.8 K/CMM [1.0-5.5 K/CMM] (05/01/14 5:14 AM) Monocytes # [0.0-0.8 0.9 K/CMM K/CMM] *HI* (05/01/14 5:14 AM) Eosinophils # 0.1 K/CMM [0.0-0.5 K/CMM] (05/01/14 5:14 AM) Medications Administered During Your Visit No data available for this section Immunizations No data available for this section
--- OUTSIDE RECORDS SUMMARY | 2018-07-22 18:03 | XMS REPORT | Summary of Care ---
Author Organization Unknown Address Unknown Phone Unavailable Care Team Providers Care Jd Edwards Consultant Name Role Phone NONE, None PCP Unavailable Encounter HQ Cyndijostinr_patrice(FIN) [id number] Date(s): 01/11/15 - 01/11/15 [facility] [address] [place] [address]- [phone] Discharge Diagnosis: Syncope Discharge Diagnosis: Abdominal pain of unknown etiology Discharge Disposition: Home Physician Attending: Rd Rodrigues MD Vital Signs 1 2 3 Most recent to oldest [Reference Range]: 172.72 cm (01/11/15 11:05 AM) Height 98.0 DegF (01/11/15 4:19 PM) 97.9 DegF (01/11/15 11:20 AM) 97.6 DegF (01/11/15 11:05 AM) Temperature Oral [96.4-99.1 DegF] 124/83 mmHg (01/11/15 4:19 PM) 126/73 mmHg (01/11/15 1:55 PM) Blood Pressure [90-140/60-90 mmHg] 121 mmHg (01/11/15 11:20 AM) Systolic Blood Pressure [90-140 mmHg] 76 mmHg (01/11/15 11:20 AM) Diastolic Blood Pressure [60-90 mmHg] 18 BRMIN (01/11/15 4:19 PM) 18 BRMIN (01/11/15 1:55 PM) 18 BRMIN (01/11/15 11:20 AM) Respiratory Rate [14-20 BRMIN] 55 bpm *LOW* (01/11/15 4:19 PM) 75 bpm (01/11/15 1:55 PM) 57 bpm *LOW* (01/11/15 11:20 AM) Peripheral Pulse Rate [60-100 bpm] 81.818 kg (01/11/15 11:05 AM) Weight 27.43 m2 (01/11/15 11:05 AM) Body Mass Index Problem List No data available for this section Allergies, Adverse Reactions, Alerts Substance Reaction Severity Status iodine Active Medications Saline Flush 0.9% 10 mL, Route: IVP, Drug Form: INJ, Dosing Weight 81.818, kg, PRN, PRN Line Flush , Start date: 01/11/15 11:30:00, Duration: 30 day, Stop date: 02/10/15 11:29:00 Notes: (Same as: BD Posiflush) Start Date: 01/11/15 Stop Date: 01/11/15 Status: Discontinued Results ELECTROLYTES Most recent to 1 oldest [Reference Range]: Sodium Lvl [135-145 138 mEq/L mEq/L] (01/11/15 12:05 PM) Potassium Lvl 4.3 mEq/L [3.5-5.1 mEq/L] (01/11/15 12:05 PM) Chloride Lvl [95-109 105 mEq/L mEq/L] (01/11/15 12:05 PM) CO2 [24-32 mEq/L] 29 mEq/L (01/11/15 12:05 PM) AGAP [10.0-20.0 8.3 mEq/L mEq/L] *LOW* (01/11/15 12:05 PM) CHEM PANEL Most recent to 1 oldest [Reference Range]: Creatinine Lvl 1.1 mg/dL [0.5-1.4 mg/dL] (01/11/15 12:05 PM) eGFR 102 mL/min/1.73m2 1 *NA* (01/11/15 12:05 PM) BUN [7-22 mg/dL] 9 mg/dL (01/11/15 12:05 PM) B/C Ratio [6-25] 8 (01/11/15 12:05 PM) Glucose Lvl [70-99 84 mg/dL 2 mg/dL] (01/11/15 12:05 PM) Total Protein 8.7 g/dL [6.4-8.4 g/dL] *HI* (01/11/15 12:05 PM) Albumin Lvl [3.5-5.0 4.2 g/dL g/dL] (01/11/15 12:05 PM) Globulin [2.0-4.0 4.5 g/dL g/dL] *HI* (01/11/15 12:05 PM) A/G Ratio [0.7-1.6] 0.9 (01/11/15:05 PM) Calcium Lvl 8.9 mg/dL [8.5-10.5 mg/dL] (01/11/15 12:05 PM) ALT [0-65 unit/L] 25 unit/L (01/11/1505 PM) AST [0-37 unit/L] 21 unit/L (01/11/15 12:05 PM) Alk Phos [39-136 53 unit/L unit/L] (01/11/15:05 PM) Bili Total [0.2-1.3 0.6 mg/dL mg/dL] (01/11/15:05 PM) Lipase Lvl [73-393 155 unit/L unit/L] (01/11/15:05 PM) 1Result Comment: The eGFR is calculated [...] values reflect the clinical guidelines of the [employer]. CARDIAC ENZYMES Most recent to 1 oldest [Reference Range]: Total CK [12-191 279 unit/L unit/L] *HI* (01/11/15 12:05 PM) CK MB [0.5-3.6 0.9 ng/mL ng/mL] (01/11/15 12:05 PM) CK MB Index 0.3 [0.0-2.5] (01/11/15 12:05 PM) Troponin-I <0.02 ng/mL [0.00-0.40 ng/mL] (01/11/15 12:05 PM) URINE AND STOOL Most recent to 1 oldest [Reference Range]: UA Turbidity [Clear] Clear (01/11/15 11:51 AM) UA Color Ltyellow *NA* (01/11/15 11:51 AM) UA pH [5.0-8.0] 6.0 (01/11/15 11:51 AM) UA Spec Grav 1.016 [<=1.030] (01/11/15 11:51 AM) UA Glucose [Negative Negative mg/dL mg/dL] *NA* (01/11/15 11:51 AM) UA Blood [Negative] Negative (01/11/15:51 AM) UA Ketones [Negative Negative mg/dL mg/dL] *NA* (01/11/15 11:51 AM) UA Protein [Negative Negative mg/dL mg/dL] (01/11/15 11:51 AM) UA Urobilinogen <=1.0 mg/dL [0.1-1.0 mg/dL] *NA* (01/11/15 11:51 AM) UA Bili [Negative] Negative *NA* (01/11/15 11:51 AM) UA Leuk Est Negative [Negative] (01/11/15 11:51 AM) UA Nitrite Negative [Negative] (01/11/15 11:51 AM) UA WBC [0-5 /HPF] <1 /HPF (01/11/15 11:51 AM) UA RBC [0-2 /HPF] 1 /HPF (01/11/15 11:51 AM) UA Sq Epi None Seen *NA* (01/11/15 11:51 AM) HEMATOLOGY Most recent to 1 oldest [Reference Range]: WBC [3.7-10.4 K/CMM] 6.0 K/CMM (01/11/15 12:05 PM) RBC [4.70-6.10 5.89 M/CMM M/CMM] (01/11/15 12:05 PM) Hgb [14.0-18.0 g/dL] 15.9 g/dL (01/11/15 12:05 PM) Hct [42.0-54.0 %] 47.7 % (01/11/15 12:05 PM) MCV [80.0-94.0 fL] 81.0 fL (01/11/15:05 PM) MCH [27.0-31.0 pg] 27.1 pg (01/11/15:05 PM) MCHC [32.0-36.0 33.4 g/dL g/dL] (01/11/15:05 PM) RDW [11.5-14.5 %] 14.2 % (01/11/15:05 PM) Platelet [133-450 257 K/CMM K/CMM] (01/11/15:05 PM) MPV [7.4-10.4 fL] 9.0 fL (01/11/15:05 PM) Segs [45.0-75.0 %] 61.3 % (01/11/15:05 PM) Lymphocytes 24.3 % [20.0-40.0 %] (01/11/15 12:05 PM) Monocytes [2.0-12.0 9.8 % %] (01/11/15 12:05 PM) Eosinophils [0.0-4.0 3.8 % %] (01/11/15 12:05 PM) Basophils [0.0-1.0 0.8 % %] (01/11/15 12:05 PM) Segs-Bands # 3.7 K/CMM [1.5-8.1 K/CMM] (01/11/15 12:05 PM) Lymphocytes # 1.4 K/CMM [1.0-5.5 K/CMM] (01/11/15 12:05 PM) Monocytes # [0.0-0.8 0.6 K/CMM K/CMM] (01/11/15 12:05 PM) Eosinophils # 0.2 K/CMM [0.0-0.5 K/CMM] (01/11/15 12:05 PM) Immunizations No data available for this section Procedures Procedure Date Related Diagnosis Body Site Appendectomy Social History Social History Type Response Alcohol Never Smoking Status Former smoker; Exposure to Tobacco Smoke None; Cigarette Smoking Last 365 Days No; Reg Smoking Cessation Counseling No Assessment and Plan No data available for this section
--- OUTSIDE RECORDS SUMMARY | 2018-07-22 18:03 | XMS REPORT | Summary of Care ---
Author Author [facility] Organization [facility] Address Unknown Phone Unavailable Care Team Providers Care Bolter Helper Name Role Phone NONE, None PCP Unavailable Encounter HQ Randal(ALLAN) [id number] Date(s): 05/25/15 - 05/25/15 [facility] [address] [place] [address]- Discharge Diagnosis: Wheezing Discharge Diagnosis: Calf pain Discharge Disposition: Home Attending Physician: Rd Rodrigues MD Referring Physician: Tracy Parra MD Vital Signs Most recent to 1 2 oldest [Reference Range]: Temperature Oral 98.1 DegF 98.1 DegF [96.4-99.1 DegF] (05/25/15 12:02 PM) (05/25/15 11:10 AM) Most recent to 1 2 oldest [Reference Range]: Blood Pressure 133/78 mmHg 129/89 mmHg [90-140/60-90 mmHg] (05/25/15 12:02 PM) (05/25/15 11:10 AM) Most recent to 1 2 oldest [Reference Range]: Respiratory Rate 19 BRMIN 18 BRMIN [14-20 BRMIN] (05/25/15 12:02 PM) (05/25/15 11:10 AM) Most recent to 1 2 oldest [Reference Range]: Peripheral Pulse 70 bpm 74 bpm Rate [60-100 bpm] (05/25/15 12:02 PM) (05/25/15 11:10 AM) Most recent to 1 2 oldest [Reference Range]: Weight 80.455 kg (05/25/15 11:10 AM) Problem List Condition Effective Dates Status Health Status Informant Anxiety(Confirmed) Resolved Allergies, Adverse Reactions, Alerts Substance Reaction Severity Status iodine Active Medications ibuprofen 800 mg, Route: PO, Drug form: TAB, ONCE, Dosing Weight 80.455, kg, Priority: STA T, Start date: 05/25/15 11:48:00, Stop date: 05/25/15 11:48:00 Start Date: 05/25/15 Stop Date: 05/25/15 Status: Completed Proventil HFA 90 mcg/inh inhalation aerosol with adapter 2 puff, INHALER, Q4H, PRN wheezing, coughing, or shortness of breath, # 1 ea, 1 Refill(s) Start Date: 05/25/15 Status: Ordered Results No data available for this section [...]
--- OUTSIDE RECORDS SUMMARY | 2018-07-22 18:04 | XMS REPORT | Summary of Care ---
Author Author [facility] Organization [facility] Address Unknown Phone Unavailable Encounter HQ Randal(ALLAN) [id number] Date(s): 06/23/17 - 06/23/17 [facility] [address] [place] [address]- Discharge Diagnosis: Acute leg pain Discharge Disposition: Home or Self Care Attending Physician: Bel Leigh DO Vital Signs Most recent to 1 2 oldest [Reference Range]: Height 172.72 cm (06/23/17 9:56 AM) Temperature Oral 98.5 DegF 97.8 DegF [96.4-99.1 DegF] (06/23/17 2:13 PM) (06/23/17 9:56 AM) Blood Pressure 127/86 mmHg 137/86 mmHg [90-140/60-90 mmHg] (06/23/17 2:13 PM) (06/23/17 9:56 AM) Respiratory Rate 20 BRMIN 16 BRMIN [14-20 BRMIN] (06/23/17 2:13 PM) (06/23/17 9:56 AM) Peripheral Pulse 65 bpm 71 bpm Rate [60-100 bpm] (06/23/17 2:13 PM) (06/23/17 9:56 AM) Weight 75 kg (06/23/17 9:56 AM) Body Mass Index 25.14 m2 (06/23/17 9:56 AM) Problem List Condition Effective Dates Status Health Status Informant Anxiety(Confirmed) Resolved Allergies, Adverse Reactions, Alerts Substance Reaction Severity Status iodine Active Medications [place] 10/325 oral tablet 1 tab, Route: PO, Dosing Weight 75, kg, ONCE, Start date: 06/23/17 10:39:00 CDT, Stop date: 06/23/17 10:39:00 CDT Start Date: 06/23/17 Stop Date: 06/23/17 Status: Completed Results No data available for this section [...] [age] age: 14.0; Stopped at age: 32; Ready to change: No; Concerns about tobacco use in household: No; Exposure to Tobacco Smoke None; Cigarette Smoking Last 365 Days No; Reg Smoking Cessation Counseling No Assessment and Plan No data available for this section
--- OUTSIDE RECORDS SUMMARY | 2018-07-22 18:04 | XMS REPORT | Summary of Care ---
Author Author [facility] Organization [facility] Address Unknown Phone Unavailable Care Team Providers Care Drop Press Hand Name Role Phone NONE, None PCP Unavailable Encounter HQ Randal(ALLAN) [id number] Date(s): 10/30/15 - 10/30/15 [facility] [address] [place] [address]- [phone] Discharge Diagnosis: Headache Discharge Diagnosis: Eustachian tube dysfunction Discharge Disposition: Home Attending Physician: Gregory Musa MD Vital Signs Most recent to 1 2 oldest [Reference Range]: Height 172.72 cm (10/30/15 4:18 PM) Temperature Oral 97.9 DegF 98.6 DegF [96.4-99.1 DegF] (10/30/15 9:13 PM) (10/30/15 4:18 PM) Blood Pressure 135/79 mmHg 132/78 mmHg [90-140/60-90 mmHg] (10/30/15 9:13 PM) (10/30/15 4:18 PM) Respiratory Rate 18 BRMIN 18 BRMIN [14-20 BRMIN] (10/30/15 9:13 PM) (10/30/15 4:18 PM) Peripheral Pulse 65 bpm 69 bpm Rate [60-100 bpm] (10/30/15 9:13 PM) (10/30/15 4:18 PM) Weight 81.591 kg (10/30/15 4:18 PM) Body Mass Index 27.35 m2 (10/30/15 4:18 PM) Problem List Condition Effective Dates Status Health Status Informant Anxiety(Confirmed) Resolved Allergies, Adverse Reactions, Alerts Substance Reaction Severity Status iodine Active Medications Benadryl 25 mg, 0.5 mL, Route: IVP, Drug form: INJ, ONCE, Dosing Weight 81.364, kg, Start date: 10/30/15 15:33:00, Stop date: 10/30/15 15:33:00 Notes: (Same as: Benadryl) Start Date: 10/30/15 Stop Date: 10/30/15 Status: Completed dexamethasone 10 mg, 1 mL, Route: IM, Drug form: SOLN, ONCE, Dosing Weight 81.591, kg, Priorit y: STAT, Start date: 10/30/15 21:43:00, Stop date: 10/30/15 21:43:00 Notes: dexamethasone 10 mg/1 ml VL INJ PF MEDICATION WASTE Product Size: 10 mgProduct Wasted: ___ mg Start Date: 10/30/15 Stop Date: 10/30/15 Status: Completed Flonase 0.05 mg/inh nasal spray 2 spray, NASAL, BID, # 16 gm, 0 Refill(s) Start Date: 10/30/15 Status: Ordered NS (Bolus) IV 1,000 mL, 1,000 ml/hr, Infuse Over: 1 hr, Route: IV, 1,000, Drug form: INJ, ONCE , Priority: STAT, Dosing Weight 81.364 kg, Start date: 10/30/15 15:33:00, Durati on: 1 doses or times, Stop date: 10/30/15 15:33:00 Start Date: 10/30/15 Stop Date: 10/30/15 Status: Completed Reglan 10 mg, 2 mL, Route: IVP, Drug form: INJ, ONCE, Dosing Weight 81.364, kg, Start d ate: 10/30/15 15:33:00, Stop date: 10/30/15 15:33:00 Notes: (Same as: Reglan) Start Date: 10/30/15 Stop Date: 10/30/15 Status: Completed Sudafed 12-Hour 120 mg oral tablet, extended release 120 mg=1 tab, PO, Q12H, PRN Congestion, X 10 day, # 20 tab, 0 Refill(s) Start Date: 10/30/15 Stop Date: 11/09/15 Status: Ordered Results No data available for this section Immunizations No data available for this section Procedures Procedure Date Related Diagnosis Body Site Appendectomy 2013 Social History Social History Type Response Substance Abuse Use: Past. Type: Marijuana. Recreational Drug Route: Inhaled. Alcohol Current, Type Beer. Frequency: 1-2 times per year. Previous treatment: None. Smoking Status Former smoker; Lives with someone who smokes; Cigarette Smoking Last 365 Days No; Reg Smoking Cessation Counseling No Assessment and Plan No data available for this section
--- OUTSIDE RECORDS SUMMARY | 2018-07-22 18:04 | XMS REPORT | Summary of Care ---
Author Author [facility] Organization [facility] Address Unknown Phone Unavailable Encounter HQ Randal(ALLAN) [id number] Date(s): 12/16/16 - 12/16/16 [facility] [address] [place] [address]- Discharge Diagnosis: Other chest pain Discharge Diagnosis: Dyspnea, unspecified Discharge Disposition: Home or Self Care Attending Physician: Bel Leigh DO Vital Signs Most recent to 1 2 oldest [Reference Range]: Height 172.72 cm (12/16/16 11:46 AM) Temperature Oral 98.4 DegF 98.7 DegF [96.4-99.1 DegF] (12/16/16 4:10 PM) (12/16/16 11:46 AM) Blood Pressure 128/78 mmHg 130/85 mmHg [90-140/60-90 mmHg] (12/16/16 4:10 PM) (12/16/16 11:46 AM) Respiratory Rate 16 BRMIN 16 BRMIN [14-20 BRMIN] (12/16/16 4:10 PM) (12/16/16 11:46 AM) Peripheral Pulse 78 bpm 80 bpm Rate [60-100 bpm] (12/16/16 4:10 PM) (12/16/16 11:46 AM) Weight 80.909 kg (12/16/16 11:46 AM) Body Mass Index 27.12 m2 (12/16/16 11:46 AM) Problem List Condition Effective Dates Status Health Status Informant Anxiety(Confirmed) Resolved Allergies, Adverse Reactions, Alerts Substance Reaction Severity Status iodine Active Medications Saline Flush 0.9% 10 mL, Route: IVP, Drug Form: INJ, Dosing Weight 80.909, kg, PRN, PRN Line Flush , Start date: 12/16/16 12:05:00 CDT, Duration: 30 day, Stop date: 01/15/17 12:04 :00 CDT Notes: (Same as: BD Posiflush) Start Date: 12/16/16 Stop Date: 12/16/16 Status: Discontinued Sodium Chloride 0.9% IV (Sodium Chloride 0.9% (Bolus) IV) 1,000 mL, Infuse Over: 1 hr, Route: IV, ONCE, Priority: STAT, Dosing Weight 80.9 09 kg, Start date: 12/16/16 12:05:00 CDT, Duration: 1 doses or times, Stop date: 12/16/16 12:05:00 CDT Start Date: 12/16/16 Stop Date: 12/16/16 Status: Completed Results ELECTROLYTES Most recent to 1 2 oldest [Reference Range]: Sodium Lvl [135-145 139 mEq/L mEq/L] (12/16/16 12:32 PM) Potassium Lvl 3.6 mEq/L [3.5-5.1 mEq/L] (12/16/16 12:32 PM) Chloride Lvl [95-109 103 mEq/L mEq/L] (12/16/16 12:32 PM) CO2 [24-32 mEq/L] 28 mEq/L (12/16/16 12:32 PM) AGAP [10.0-20.0 11.6 mEq/L mEq/L] (12/16/16 12:32 PM) CHEM PANEL Most recent to 1 2 oldest [Reference Range]: Creatinine Lvl 1.30 mg/dL [0.50-1.40 mg/dL] (12/16/16 12:32 PM) eGFR 82 mL/min/1.73m2 1 *NA* (12/16/16 12:32 PM) BUN [7-22 mg/dL] 16 mg/dL (12/16/16 12:32 PM) B/C Ratio [6-25] 12 (12/16/16 12:32 PM) Glucose Lvl [70-99 83 mg/dL mg/dL] (12/16/16 12:32 PM) Total Protein 8.3 g/dL [6.4-8.4 g/dL] (12/16/16 12:32 PM) Albumin Lvl [3.5-5.0 4.2 g/dL g/dL] (12/16/16 12:32 PM) Globulin [2.7-4.2 4.1 g/dL g/dL] (12/16/16 12:32 PM) A/G Ratio [0.7-1.6] 1.0 (12/16/16 12:32 PM) Calcium Lvl 8.7 mg/dL [8.5-10.5 mg/dL] (12/16/16 12:32 PM) Magnesium Lvl 1.9 mg/dL [1.8-2.4 mg/dL] (12/16/16 12:32 PM) ALT [0-65 unit/L] 25 unit/L (12/16/16 12:32 PM) AST [0-37 unit/L] 17 unit/L (12/16/16 12:32 PM) Alk Phos [39-136 51 unit/L unit/L] (12/16/16 12:32 PM) Bili Total [0.2-1.3 0.4 mg/dL mg/dL] (12/16/16 12:32 PM) 1Result Comment: The eGFR is calculated [...] BMI. CARDIAC ENZYMES Most recent to 1 2 oldest [Reference Range]: Total CK [12-191 231 unit/L 243 unit/L unit/L] *HI* *HI* (12/16/16 1:50 PM) (12/16/16 12:32 PM) CK MB [0.5-3.6 1.9 ng/mL 2.0 ng/mL ng/mL] (12/16/16 1:50 PM) (12/16/16 12:32 PM) CK MB Index 0.8 0.8 [0.0-2.5] (12/16/16 1:50 PM) (12/16/16 12:32 PM) Troponin-I <0.02 ng/mL <0.02 ng/mL [0.00-0.40 ng/mL] (12/16/16 1:50 PM) (12/16/16 12:32 PM) HEMATOLOGY Most recent to 1 2 oldest [Reference Range]: WBC [3.7-10.4 K/CMM] 5.2 K/CMM (12/16/16 12:32 PM) RBC [4.70-6.10 5.86 M/CMM M/CMM] (12/16/16 12:32 PM) Hgb [14.0-18.0 g/dL] 15.5 g/dL (12/16/16 12:32 PM) Hct [42.0-54.0 %] 47.4 % (12/16/16 12:32 PM) MCV [80.0-94.0 fL] 80.8 fL (12/16/16 12:32 PM) MCH [27.0-31.0 pg] 26.5 pg *LOW* (12/16/16 12:32 PM) MCHC [32.0-36.0 32.8 g/dL g/dL] (12/16/16 12:32 PM) RDW [11.5-14.5 %] 14.1 % (12/16/16 12:32 PM) Platelet [133-450 241 K/CMM K/CMM] (12/16/16 12:32 PM) MPV [7.4-10.4 fL] 9.0 fL (12/16/16 12:32 PM) Segs [45.0-75.0 %] 57.1 % (12/16/16 12:32 PM) Lymphocytes 25.0 % [20.0-40.0 %] (12/16/16 12:32 PM) Monocytes [2.0-12.0 11.4 % %] (12/16/16 12:32 PM) Eosinophils [0.0-4.0 5.8 % %] *HI* (12/16/16 12:32 PM) Basophils [0.0-1.0 0.7 % %] (12/16/16 12:32 PM) Segs-Bands # 3.0 K/CMM [1.5-8.1 K/CMM] (12/16/16 12:32 PM) Lymphocytes # 1.3 K/CMM [1.0-5.5 K/CMM] (12/16/16 12:32 PM) Monocytes # [0.0-0.8 0.6 K/CMM K/CMM] (12/16/16 12:32 PM) Eosinophils # 0.3 K/CMM [0.0-0.5 K/CMM] (12/16/16 12:32 PM) PT [12.0-14.7 13.0 seconds seconds] (12/16/16 12:32 PM) INR [0.85-1.17] 0.96 (12/16/16 12:32 PM) PTT [22.9-35.8 25.4 seconds seconds] (12/16/16 12:32 PM) Immunizations No data available for this [...]
--- OUTSIDE RECORDS SUMMARY | 2018-07-22 18:04 | XMS REPORT | Summary of Care ---
Author Author [facility] Organization [facility] Address Unknown Phone Unavailable Encounter ERIK Tee(ALLAN) [id number] Date(s): 05/27/16 - 05/27/16 [facility] [address] [place] [address]- [phone] Discharge Diagnosis: Abdominal pain in male Discharge Disposition: Home or Self Care Attending Physician: Rufino Rose MD Vital Signs 1 2 3 Most recent to oldest [Reference Range]: 172.72 cm (05/27/16 8:04 AM) Height 97.8 DegF (05/27/16 10:15 AM) 97.7 DegF (05/27/16 8:04 AM) Temperature Oral [96.4-99.1 DegF] 117/64 mmHg (05/27/16 10:15 AM) 122/64 mmHg (05/27/16 9:15 AM) 120/68 mmHg (05/27/16 8:04 AM) Blood Pressure [90-140/60-90 mmHg] 20 BRMIN (05/27/16 10:15 AM) 16 BRMIN (05/27/16 9:15 AM) 18 BRMIN (05/27/16 8:04 AM) Respiratory Rate [14-20 BRMIN] 72 bpm (05/27/16 10:15 AM) 70 bpm (05/27/16 9:15 AM) 74 bpm (05/27/16 8:04 AM) Peripheral Pulse Rate [60-100 bpm] 79.091 kg (05/27/16 8:04 AM) Weight 26.51 m2 (05/27/16 8:04 AM) Body Mass Index Problem List Condition Effective Dates Status Health Status Informant Anxiety(Confirmed) Resolved Allergies, Adverse Reactions, Alerts Substance Reaction Severity Status iodine Active Medications GI cocktail 30 mL, Route: PO, Dosing Weight 79.091, kg, ONCE, STAT, Start date: 05/27/16 8:1 3:00 CDT, Stop date: 05/27/16 8:13:00 CDT Start Date: 05/27/16 Stop Date: 05/27/16 Status: Completed ondansetron 4 mg, Route: IVP, ONCE, Dosing Weight 79.091, kg, Priority: STAT, Start date: 8:13:00 CDT, Stop date: 05/27/16 8:13:00 CDT Start Date: 05/27/16 Stop Date: 05/27/16 Status: Completed sodium chloride 0.9% 1000 ml INJ 1,000 mL 1,000 mL, Rate: 1,000 ml/hr, Infuse over: 1 hr, Route: IV, Dosing Weight 79.091 kg, Total Volume: 1,000, Start date: 05/27/16 8:13:00 CDT, Duration: 1 doses or times, Stop date: 05/27/16 9:12:00 CDT Start Date: 05/27/16 Stop Date: 05/27/16 Status: Completed Results ELECTROLYTES Most recent to 1 oldest [Reference Range]: Sodium Lvl [135-145 140 mEq/L mEq/L] (05/27/16 8:21 AM) Potassium Lvl 3.6 mEq/L [3.5-5.1 mEq/L] (05/27/16 8:21 AM) Chloride Lvl [95-109 107 mEq/L mEq/L] (05/27/16 8:21 AM) CO2 [24-32 mEq/L] 26 mEq/L (05/27/16 8:21 AM) AGAP [10.0-20.0 10.6 mEq/L mEq/L] (05/27/16 8:21 AM) CHEM PANEL Most recent to 1 oldest [Reference Range]: Creatinine Lvl 1.14 mg/dL [0.50-1.40 mg/dL] (05/27/16 8:21 AM) eGFR 96 mL/min/1.73m2 1 *NA* (05/27/16 8:21 AM) BUN [7-22 mg/dL] 11 mg/dL (05/27/16 8:21 AM) B/C Ratio [6-25] 10 (05/27/16 8:21 AM) Glucose Lvl [70-99 98 mg/dL mg/dL] (05/27/16 8:21 AM) Total Protein 7.7 g/dL [6.4-8.4 g/dL] (05/27/16 8:21 AM) Albumin Lvl [3.5-5.0 3.9 g/dL g/dL] (05/27/16 8:21 AM) Globulin [2.7-4.2 3.8 g/dL g/dL] (05/27/16 8:21 AM) A/G Ratio [0.7-1.6] 1.0 (05/27/16 8:21 AM) Calcium Lvl 9.0 mg/dL [8.5-10.5 mg/dL] (05/27/16 8:21 AM) ALT [0-65 unit/L] 23 unit/L (05/27/16 8:21 AM) AST [0-37 unit/L] 14 unit/L (05/27/16 8:21 AM) Alk Phos [39-136 42 unit/L unit/L] (05/27/16 8:21 AM) Bili Total [0.2-1.3 1.0 mg/dL mg/dL] (05/27/16 8:21 AM) Amylase Lvl [25-115 61 unit/L unit/L] (05/27/16 8:21 AM) Lipase Lvl [73-393 167 unit/L unit/L] (05/27/16 8:21 AM) 1Result Comment: The eGFR is calculated [...] be mul tiplied by the estimated BMI. HEMATOLOGY Most recent to 1 oldest [Reference Range]: WBC [3.7-10.4 K/CMM] 4.6 K/CMM (05/27/16 8:21 AM) RBC [4.70-6.10 5.80 M/CMM M/CMM] (05/27/16 8:21 AM) Hgb [14.0-18.0 g/dL] 15.5 g/dL (05/27/16 8: AM) Hct [42.0-54.0 %] 47.1 % (05/27/16 8: AM) MCV [80.0-94.0 fL] 81.1 fL (05/27/16 8: AM) MCH [27.0-31.0 pg] 26.6 pg *LOW* (05/27/16 8: AM) MCHC [32.0-36.0 32.9 g/dL g/dL] (05/27/16 8: AM) RDW [11.5-14.5 %] 14.1 % (05/27/16 8:21 AM) Platelet [133-450 251 K/CMM K/CMM] (05/27/16 8:21 AM) MPV [7.4-10.4 fL] 8.9 fL (05/27/16 8:21 AM) Segs [45.0-75.0 %] 49.9 % (05/27/16 8:21 AM) Lymphocytes 31.7 % [20.0-40.0 %] (05/27/16 8: AM) Monocytes [2.0-12.0 12.8 % %] *HI* (05/27/16 8: AM) Eosinophils [0.0-4.0 4.7 % %] *HI* (05/27/16 8: AM) Basophils [0.0-1.0 0.9 % %] (05/27/16 8:21 AM) Segs-Bands # 2.3 K/CMM [1.5-8.1 K/CMM] (05/27/16 8:21 AM) Lymphocytes # 1.4 K/CMM [1.0-5.5 K/CMM] (05/27/16 8:21 AM) Monocytes # [0.0-0.8 0.6 K/CMM K/CMM] (05/27/16 8:21 AM) Eosinophils # 0.2 K/CMM [0.0-0.5 K/CMM] (05/27/16 8:21 AM) Immunizations No data available for this [...]
--- OUTSIDE RECORDS SUMMARY | 2018-07-22 18:04 | XMS REPORT | Summary of Care ---
Author Author [facility] Organization [facility] Address Unknown Phone Unavailable Encounter HQ Rahat_[email or web address](FIN) [id number] Date(s): 11/24/17 - 11/24/17 [facility] [address] [place] [address]- [phone] Encounter Diagnosis Pain in right lower leg (Final) - 12/02/17 Pain in left lower leg (Final) - Discharge Disposition: Home or Self Care Attending Physician: Feng Ji MD Vital Signs Most recent to 1 oldest [Reference Range]: Height 172.72 cm (11/24/17 7:07 PM) Temperature Oral 98.3 DegF [96.4-99.1 DegF] (11/24/17 7:07 PM) Blood Pressure 135/89 mmHg [90-140/60-90 mmHg] (11/24/17 7:07 PM) Respiratory Rate 18 BRMIN [14-20 BRMIN] (11/24/17 7:07 PM) Peripheral Pulse 75 bpm Rate [60-100 bpm] (11/24/17 7:07 PM) Weight 71.818 kg (11/24/17 7:07 PM) Body Mass Index 24.07 m2 (11/24/17 7:07 PM) Problem List Condition Effective Dates Status Health Status Informant Anxiety(Confirmed) Resolved Allergies, Adverse Reactions, Alerts Substance Reaction Severity Status Toradol Active Stadol Active iodine Active Medications No data available for this section Results No data available for this section Immunizations No data available for this section Procedures Procedure Date Related Diagnosis Body Site Status Appendectomy 2014 Completed Social History Social History Type Response Substance Abuse Use: Past. Type: Marijuana. Recreational Drug Route: Inhaled. Alcohol Current, Type Beer. Frequency: 1-2 times per year. Previous treatment: None. Smoking Status Former smoker; Type: Cigarettes; Ready to change: No; Concerns about tobacco use in household: No; Exposure to Tobacco Smoke None; Cigarette Smoking Last 365 Days No; Reg Smoking Cessation Counseling No; Tobacco use per day: 10; Started at age: 14.0; Stopped at age: 32; entered on: 11/24/17 Assessment and Plan No data available for this section
--- OUTSIDE RECORDS SUMMARY | 2018-07-22 18:04 | XMS REPORT | Summary of Care ---
Author Author [facility] Organization [facility] Address Unknown Phone Unavailable Care Team Providers Care Suggestion Clerk Name Role Phone NONE, None PCP Unavailable Encounter HQ Adinar_patrice(FIN) [phone] Date(s): 02/04/16 - 02/04/16 [facility] [address] [place] [address]- Discharge Disposition: Non-Emergent Attending Physician: Jack Mccoy MD Vital Signs Most recent to 1 2 oldest [Reference Range]: Height 172.72 cm (02/04/16 8:51 AM) Temperature Oral 97.3 DegF [96.4-99.1 DegF] (02/04/16 8:51 AM) Blood Pressure 143/81 mmHg [90-140/60-90 mmHg] *HI* (02/04/16 8:51 AM) Respiratory Rate 19 BRMIN 14 BRMIN [14-20 BRMIN] (02/04/16 9:41 AM) (02/04/16 8:51 AM) Peripheral Pulse 93 bpm Rate [60-100 bpm] (02/04/16 8:51 AM) Weight 85.182 kg (02/04/16 8:51 AM) Body Mass Index 28.55 m2 (02/04/16 8:51 AM) Problem List Condition Effective Dates Status [...]
--- OUTSIDE RECORDS SUMMARY | 2018-07-22 18:04 | XMS REPORT | Summary of Care ---
Author Author [facility] Organization [facility] Address Unknown Phone Unavailable Care Team Providers Care Dough Machine Operator Name Role Phone NONE, None PCP Unavailable Encounter HQ Rahat_patrice(FIN) [phone] Date(s): 11/24/15 - 11/24/15 [facility] [address] [place], [place] [address]- [phone] Discharge Diagnosis: Acute leg pain Discharge Disposition: Home Attending Physician: Rufino Rose MD Vital Signs Most recent to 1 2 oldest [Reference Range]: Height 172.72 cm (11/24/15 6:42 PM) Temperature Oral 98.1 DegF 98.2 DegF [96.4-99.1 DegF] (11/24/15 8:16 PM) (11/24/15 6:42 PM) Blood Pressure 119/77 mmHg 132/83 mmHg [90-140/60-90 mmHg] (11/24/15 8:16 PM) (11/24/15 6:42 PM) Respiratory Rate 18 BRMIN 18 BRMIN [14-20 BRMIN] (11/24/15 8:16 PM) (11/24/15 6:42 PM) Peripheral Pulse 62 bpm 71 bpm Rate [60-100 bpm] (11/24/15 8:16 PM) (11/24/15 6:42 PM) Weight 83.807 kg (11/24/15 6:42 PM) Body Mass Index 28.09 m2 (11/24/15 6:42 PM) Problem List Condition Effective Dates Status Health Status Informant Anxiety(Confirmed) Resolved Allergies, Adverse Reactions, Alerts Substance Reaction Severity Status iodine Active Medications Motrin 800 mg, 2 tab, Route: PO, Drug form: TAB, ONCE, Dosing Weight 83.807, kg, Priori ty: STAT, Start date: 11/24/15 19:21:00, Stop date: 11/24/15 19:21:00 Notes: (Same as: Motrin)"Do Not Crush" Give with food. Start Date: 11/24/15 Stop Date: 11/24/15 Status: Completed naproxen 500 mg oral tablet 500 mg, PO, BID, PRN Pain, # 30 tab, 0 Refill(s) Start Date: 11/24/15 Stop Date: 12/09/15 Status: Ordered Results No data available for this section Immunizations No data available for this section Procedures Procedure Date Related Diagnosis Body Site Appendectomy 2013 Social History Social History Type Response Substance Abuse Use: Past. Type: Marijuana. Recreational Drug Route: Inhaled. Alcohol Current, Type Beer. Frequency: 1-2 times per year. Previous treatment: None. Smoking Status Never smoker; Lives with someone who smokes; Cigarette Smoking Last 365 Days No; Reg Smoking Cessation Counseling No Assessment and Plan No data available for this section
--- OUTSIDE RECORDS SUMMARY | 2018-07-22 18:04 | XMS REPORT | Summary of Care ---
Author Author [facility] Organization [facility] Address Unknown Phone Unavailable Encounter ERIK Tee(ALLAN) [id number] Date(s): 02/20/17 - 02/20/17 [facility] [address] [place] [address]- Discharge Diagnosis: Back pain Discharge Disposition: Home or Self Care Attending Physician: Feng Ji MD Vital Signs Most recent to 1 oldest [Reference Range]: Height 172.72 cm (02/20/17 8:44 AM) Temperature Oral 98.0 DegF [96.4-99.1 DegF] (02/20/17 8:44 AM) Blood Pressure 115/74 mmHg [90-140/60-90 mmHg] (02/20/17 8:44 AM) Respiratory Rate 16 BRMIN [14-20 BRMIN] (02/20/17 8:44 AM) Peripheral Pulse 70 bpm Rate [60-100 bpm] (02/20/17 8:44 AM) Weight 78.182 kg (02/20/17 8:44 AM) Body Mass Index 26.21 m2 (02/20/17 8:44 AM) Problem List Condition Effective Dates Status Health Status Informant Anxiety(Confirmed) Resolved Allergies, Adverse Reactions, Alerts Substance Reaction Severity Status iodine Active Medications Flexeril 10 mg, Route: PO, ONCE, Dosing Weight 78.182, kg, Priority: STAT, Start date: 9:00:00 CDT, Stop date: 02/20/17 9:00:00 CDT Start Date: 02/20/17 Stop Date: 02/20/17 Status: Completed Flexeril 10 mg oral tablet 10 mg, PO, TID, PRN Muscle Spasm, X 5 day, # 20 tab, 0 Refill(s) Start Date: 02/20/17 Stop Date: 02/25/17 Status: Ordered ketOROLAC 60 mg, Route: IM, Drug form: INJ, ONCE, Dosing Weight 78.182, kg, Priority: STAT , Start date: 02/20/17 9:00:00 CDT, Stop date: 02/20/17 9:00:00 CDT Start Date: 02/20/17 Stop Date: 02/20/17 Status: Deleted Motrin 600 mg, Route: PO, Drug form: TAB, ONCE, Dosing Weight 78.182, kg, Priority: STA T, Start date: 02/20/17 9:22:00 CDT, Stop date: 02/20/17 9:22:00 CDT Start Date: 02/20/17 Stop Date: 02/20/17 Status: Completed [place] 10/325 oral tablet 1 tab, Route: PO, Dosing Weight 78.182, kg, ONCE, Start date: 02/20/17 9:00:00 C DT, Stop date: 02/20/17 9:00:00 CDT Start Date: 02/20/17 Stop Date: 02/20/17 Status: Completed Tylenol with Codeine #3 oral tablet 1 - 2 tab, PO, Q4H, PRN Pain, X 3 day, # 15 tab, 0 Refill(s) Start Date: 02/20/17 Stop Date: 02/23/17 Status: Ordered Results URINE AND STOOL Most recent to 1 oldest [Reference Range]: UA Turbidity [Clear] Clear (02/20/17 9:52 AM) UA Color Ltyellow *NA* (02/20/17 9:52 AM) UA pH [5.0-8.0] 6.0 (02/20/17 9:52 AM) UA Spec Grav 1.019 [<=1.030] (02/20/17 9:52 AM) UA Glucose [Negative Negative mg/dL mg/dL] *NA* (02/20/17 9:52 AM) UA Blood [Negative] Negative (02/20/17 9:52 AM) UA Ketones [Negative Negative mg/dL mg/dL] *NA* (02/20/17 9:52 AM) UA Protein [Negative Negative mg/dL mg/dL] (02/20/17 9:52 AM) UA Urobilinogen <=1.0 mg/dL [0.1-1.0 mg/dL] *NA* (02/20/17 9:52 AM) UA Bili [Negative] Negative *NA* (02/20/17 9:52 AM) UA Leuk Est Negative [Negative] (02/20/17 9:52 AM) UA Nitrite Negative [Negative] (02/20/17 9:52 AM) UA WBC [0-5 /HPF] <1 /HPF (02/20/17 9:52 AM) UA RBC [0-2 /HPF] 1 /HPF (02/20/17 9:52 AM) UA Sq Epi None Seen *NA* (02/20/17 9:52 AM) Immunizations No data available for this [...]
--- OUTSIDE RECORDS SUMMARY | 2018-07-22 18:04 | XMS REPORT | Summary of Care ---
Author Author [facility] Organization [facility] Address Unknown Phone Unavailable Encounter ERIK Tee(ALLAN) [id number] Date(s): 10/10/16 - 10/10/16 [facility] [address] [place] [address]- [phone] Discharge Diagnosis: Syncope, near Discharge Disposition: Home or Self Care Attending Physician: Vasile Loza MD Vital Signs 1 2 3 Most recent to oldest [Reference Range]: 172.72 cm (10/10/16 10:50 AM) Height 97.6 DegF (10/10/16 3:37 PM) 98.1 DegF (10/10/16 1:10 PM) 98.0 DegF (10/10/16 10:50 AM) Temperature Oral [96.4-99.1 DegF] 125/74 mmHg (10/10/16 3:37 PM) 135/79 mmHg (10/10/16 1:10 PM) 138/83 mmHg (10/10/16 10:50 AM) Blood Pressure [90-140/60-90 mmHg] 20 BRMIN (10/10/16 3:37 PM) 20 BRMIN (10/10/16 1:10 PM) 18 BRMIN (10/10/16 10:50 AM) Respiratory Rate [14-20 BRMIN] 71 bpm (10/10/16 10:50 AM) Peripheral Pulse Rate [60-100 bpm] 80 kg (10/10/16 10:50 AM) Weight 26.82 m2 (10/10/16 10:50 AM) Body Mass Index Problem List Condition Effective Dates Status Health Status Informant Anxiety(Confirmed) Resolved Allergies, Adverse Reactions, Alerts Substance Reaction Severity Status iodine Active Medications Saline Flush 0.9% 10 mL, Route: IVP, Drug Form: INJ, Dosing Weight 80, kg, PRN, PRN Line Flush, St art date: 10/10/16 12:04:00 [facility], Duration: 30 day, Stop date: 11/09/16 12:03:00 [facility] Notes: Same as: BD Posiflush Sterile Start Date: 10/10/16 Stop Date: 10/10/16 Status: Discontinued Results ELECTROLYTES Most recent to 1 2 oldest [Reference Range]: Sodium Lvl [135-145 140 mEq/L mEq/L] (10/10/16 12:11 PM) Potassium Lvl 3.9 mEq/L [3.5-5.1 mEq/L] (10/10/16 12:11 PM) Chloride Lvl [95-109 105 mEq/L mEq/L] (10/10/16 12:11 PM) CO2 [24-32 mEq/L] 26 mEq/L (10/10/16 12:11 PM) AGAP [10.0-20.0 12.9 mEq/L mEq/L] (10/10/16 12:11 PM) CHEM PANEL Most recent to 1 2 oldest [Reference Range]: Creatinine Lvl 1.10 mg/dL [0.50-1.40 mg/dL] (10/10/16 12:11 PM) eGFR 101 mL/min/1.73m2 1 *NA* (10/10/16 12:11 PM) BUN [7-22 mg/dL] 13 mg/dL (10/10/16 12:11 PM) B/C Ratio [6-25] 12 (10/10/16 12:11 PM) Glucose Lvl [70-99 73 mg/dL mg/dL] (10/10/16 12:11 PM) Total Protein 8.2 g/dL [6.4-8.4 g/dL] (10/10/16 12:11 PM) Albumin Lvl [3.5-5.0 4.2 g/dL g/dL] (10/10/16 12:11 PM) Globulin [2.7-4.2 4.0 g/dL g/dL] (10/10/16 12:11 PM) A/G Ratio [0.7-1.6] 1.0 (10/10/16 12:11 PM) Calcium Lvl 9.0 mg/dL [8.5-10.5 mg/dL] (10/10/16 12:11 PM) ALT [0-65 unit/L] 22 unit/L (10/10/16 12:11 PM) AST [0-37 unit/L] 17 unit/L (10/10/16 12:11 PM) Alk Phos [39-136 49 unit/L unit/L] (10/10/16 12:11 PM) Bili Total [0.2-1.3 0.8 mg/dL mg/dL] (10/10/16 12:11 PM) 1Result Comment: The eGFR is calculated [...] 2 oldest [Reference Range]: Total CK [12-191 230 unit/L unit/L] *HI* (10/10/16 12:11 PM) CK MB [0.5-3.6 1.9 ng/mL ng/mL] (10/10/16 12:11 PM) CK MB Index 0.8 [0.0-2.5] (10/10/16 12:11 PM) Troponin-I <0.02 ng/mL [0.00-0.40 ng/mL] (10/10/16 12:11 PM) HEMATOLOGY Most recent to 1 2 oldest [Reference Range]: WBC [3.7-10.4 K/CMM] 5.6 K/CMM (10/10/16 12:11 PM) RBC [4.70-6.10 6.02 M/CMM M/CMM] (10/10/16 12:11 PM) Hgb [14.0-18.0 g/dL] 16.0 g/dL (10/10/16 12:11 PM) Hct [42.0-54.0 %] 48.9 % (10/10/16 12:11 PM) MCV [80.0-94.0 fL] 81.2 fL (10/10/16 12:11 PM) MCH [27.0-31.0 pg] 26.5 pg *LOW* (10/10/16 12:11 PM) MCHC [32.0-36.0 32.7 g/dL g/dL] (10/10/16 12:11 PM) RDW [11.5-14.5 %] 14.9 % *HI* (10/10/16 12:11 PM) Platelet [133-450 243 K/CMM K/CMM] (10/10/16 12:11 PM) MPV [7.4-10.4 fL] 9.0 fL (10/10/16 12:11 PM) Segs [45.0-75.0 %] 64.6 % (10/10/16 12:11 PM) Lymphocytes 20.7 % [20.0-40.0 %] (10/10/16 12:11 PM) Monocytes [2.0-12.0 11.0 % %] (10/10/16 12:11 PM) Eosinophils [0.0-4.0 2.9 % %] (10/10/16 12:11 PM) Basophils [0.0-1.0 0.8 % %] (10/10/16 12:11 PM) Segs-Bands # 3.6 K/CMM [1.5-8.1 K/CMM] (10/10/16 12:11 PM) Lymphocytes # 1.1 K/CMM [1.0-5.5 K/CMM] (10/10/16 12:11 PM) Monocytes # [0.0-0.8 0.6 K/CMM K/CMM] (10/10/16 12:11 PM) Eosinophils # 0.2 K/CMM [0.0-0.5 K/CMM] (10/10/16 12:11 PM) PT [12.0-14.7 14.0 seconds 55.0 seconds seconds] (10/10/16 1:54 PM) *HI* (10/10/16 12:11 PM) INR [0.85-1.17] 1.06 6.09 1 (10/10/16 1:54 PM) *CRIT* (10/10/16 12:11 PM) PTT [22.9-35.8 28.5 seconds seconds] (10/10/16 12:11 PM) 1Result Comment: Critical Result(s) called to abhilash at 10/10/2016 12:43 by tb. Read back OK. Immunizations No data available for this section [...]
--- OUTSIDE RECORDS SUMMARY | 2018-07-22 18:04 | XMS REPORT | Summary of Care ---
Author Author [facility] Organization [facility] Address Unknown Phone Unavailable Care Team Providers Care Sieve Grader Tender Name Role Phone NONE, None PCP Unavailable Encounter HQ Randal(ALLAN) [id number] Date(s): 12/10/15 - 12/10/15 [facility] [address] [place] [address]- [phone] Discharge Diagnosis: Palpitations Discharge Disposition: Home Attending Physician: Blayne Cerrato MD Vital Signs 1 2 3 Most recent to oldest [Reference Range]: 172.72 cm (12/10/15 3:16 AM) Height 98.2 DegF (12/10/15 5:20 AM) 98.7 DegF (12/10/15 3:16 AM) Temperature Oral [96.4-99.1 DegF] 109/79 mmHg (12/10/15 5:20 AM) 113/77 mmHg (12/10/15 4:00 AM) 141/73 mmHg *HI* (12/10/15 3:16 AM) Blood Pressure [90-140/60-90 mmHg] 19 BRMIN (12/10/15 5:20 AM) 18 BRMIN (12/10/15 4:00 AM) 19 BRMIN (12/10/15 3:16 AM) Respiratory Rate [14-20 BRMIN] 74 bpm (12/10/15 5:20 AM) 58 bpm *LOW* (12/10/15 4:00 AM) 83 bpm (12/10/15 3:16 AM) Peripheral Pulse Rate [60-100 bpm] 81.818 kg (12/10/15 3:16 AM) Weight 27.43 m2 (12/10/15 3:16 AM) Body Mass Index Problem List Condition Effective Dates Status Health Status Informant Anxiety(Confirmed) Resolved Allergies, Adverse Reactions, Alerts Substance Reaction Severity Status iodine Active Medications aspirin 324 mg, 4 tab, Route: CHEW, Drug form: CHEWTAB, ONCE, Dosing Weight 81.818, kg, Priority: STAT, Start date: 12/10/15 3:26:00, Stop date: 12/10/15 3:26:00 Notes: Take with food. Start Date: 12/10/15 Stop Date: 12/10/15 Status: Completed Results ELECTROLYTES Most recent to 1 oldest [Reference Range]: Sodium Lvl [135-145 137 mEq/L mEq/L] (12/10/15 3:30 AM) Potassium Lvl 3.6 mEq/L [3.5-5.1 mEq/L] (12/10/15 3:30 AM) Chloride Lvl [95-109 104 mEq/L mEq/L] (12/10/15 3:30 AM) CO2 [24-32 mEq/L] 27 mEq/L (12/10/15 3:30 AM) AGAP [10.0-20.0 9.6 mEq/L mEq/L] *LOW* (12/10/15 3:30 AM) CHEM PANEL Most recent to 1 oldest [Reference Range]: Creatinine Lvl 1.25 mg/dL [0.50-1.40 mg/dL] (12/10/15 3:30 AM) eGFR 87 mL/min/1.73m2 1 *NA* (12/10/15 3:30 AM) BUN [7-22 mg/dL] 15 mg/dL (12/10/15 3:30 AM) B/C Ratio [6-25] 12 (12/10/15 3:30 AM) Glucose Lvl [70-99 81 mg/dL mg/dL] (12/10/15 3:30 AM) Total Protein 7.6 g/dL [6.4-8.4 g/dL] (12/10/15 3:30 AM) Albumin Lvl [3.5-5.0 3.8 g/dL g/dL] (12/10/15 3:30 AM) Globulin [2.0-4.0 3.8 g/dL g/dL] (12/10/15 3:30 AM) A/G Ratio [0.7-1.6] 1.0 (12/10/15 3:30 AM) Calcium Lvl 8.7 mg/dL [8.5-10.5 mg/dL] (12/10/15 3:30 AM) ALT [0-65 unit/L] 39 unit/L (12/10/15 3:30 AM) AST [0-37 unit/L] 28 unit/L (12/10/15 3:30 AM) Alk Phos [39-136 53 unit/L unit/L] (12/10/15 3:30 AM) Bili Total [0.2-1.3 0.7 mg/dL mg/dL] (12/10/15 3:30 AM) 1Result Comment: The eGFR is calculated [...] 1 oldest [Reference Range]: Total CK [12-191 1157 unit/L unit/L] *HI* (12/10/15 3:30 AM) CK MB [0.5-3.6 4.0 ng/mL ng/mL] *HI* (12/10/15 3:30 AM) CK MB Index 0.3 [0.0-2.5] (12/10/15 3:30 AM) Troponin-I 0.06 ng/mL [0.00-0.40 ng/mL] (12/10/15 3:30 AM) BNP [<=100 pg/mL] 6 pg/mL (12/10/15 3:30 AM) URINE AND STOOL Most recent to 1 oldest [Reference Range]: UA Turbidity [Clear] Clear (12/10/15 4:01 AM) UA Color [Yellow] Yellow *NA* (12/10/15 4:01 AM) UA pH [5.0-8.0] 7.0 (12/10/15 4:01 AM) UA Spec Grav 1.010 [<=1.030] (12/10/15 4:01 AM) UA Glucose [Negative Negative mg/dL mg/dL] (12/10/15 4:01 AM) UA Blood [Negative] Negative (12/10/15 4:01 AM) UA Ketones [Negative Negative mg/dL mg/dL] *NA* (12/10/15 4:01 AM) UA Protein [Negative Negative mg/dL mg/dL] (12/10/15 4:01 AM) UA Urobilinogen 0.2 EU/dL [0.1-1.0 EU/dL] (12/10/15 4:01 AM) UA Bili [Negative] Negative *NA* (12/10/15 4:01 AM) UA Leuk Est Negative [Negative] (12/10/15 4:01 AM) UA Nitrite Negative [Negative] (12/10/15 4:01 AM) UA WBC [None Seen 0-2 /HPF /HPF] (12/10/15 4:01 AM) UA RBC [0-2 /HPF] 0-2 /HPF (12/10/15 4:01 AM) UA Bacteria [None None Seen Seen] (12/10/15 4:01 AM) UA Sq Epi [Few /LPF] Rare /LPF (12/10/15 4:01 AM) Micro? Performed (12/10/15 4:01 AM) IMMUNOLOGY Most recent to 1 oldest [Reference Range]: CDC HIV 4th GEN Negative [Negative] (12/10/15 4:11 AM) HEMATOLOGY Most recent to 1 oldest [Reference Range]: WBC [3.7-10.4 K/CMM] 8.7 K/CMM (12/10/15 3:30 AM) RBC [4.70-6.10 5.68 M/CMM M/CMM] (12/10/15 3:30 AM) Hgb [14.0-18.0 g/dL] 15.1 g/dL (12/10/15 3:30 AM) Hct [42.0-54.0 %] 45.6 % (12/10/15 3:30 AM) MCV [80.0-94.0 fL] 80.3 fL (12/10/15 3:30 AM) MCH [27.0-31.0 pg] 26.6 pg *LOW* (12/10/15 3:30 AM) MCHC [32.0-36.0 33.1 g/dL g/dL] (12/10/15 3:30 AM) RDW [11.5-14.5 %] 13.8 % (12/10/15 3:30 AM) Platelet [133-450 243 K/CMM K/CMM] (12/10/15 3:30 AM) MPV [7.4-10.4 fL] 8.7 fL (12/10/15 3:30 AM) Segs [45.0-75.0 %] 62.0 % (12/10/15 3:30 AM) Lymphocytes 21.1 % [20.0-40.0 %] (12/10/15 3:30 AM) Monocytes [2.0-12.0 12.3 % %] *HI* (12/10/15 3:30 AM) Eosinophils [0.0-4.0 3.9 % %] (12/10/15 3:30 AM) Basophils [0.0-1.0 0.7 % %] (12/10/15 3:30 AM) Segs-Bands # 5.4 K/CMM [1.5-8.1 K/CMM] (12/10/15 3:30 AM) Lymphocytes # 1.8 K/CMM [1.0-5.5 K/CMM] (12/10/15 3:30 AM) Monocytes # [0.0-0.8 1.1 K/CMM K/CMM] *HI* (12/10/15 3:30 AM) Eosinophils # 0.3 K/CMM [0.0-0.5 K/CMM] (12/10/15 3:30 AM) Basophils # [0.0-0.2 0.1 K/CMM K/CMM] (12/10/15 3:30 AM) Immunizations No data available for this [...]
--- OUTSIDE RECORDS SUMMARY | 2018-07-22 18:04 | XMS REPORT | Summary of Care ---
Author Author [facility] Address Unknown Phone Unavailable Care Team Providers Care Floor Polisher Name Role Phone NONE, None PCP Unavailable Encounter HQ Encntr_alias(FIN) [id number] Date(s): 03/05/16 - 03/05/16 [facility] [id number] [place] [address] Discharge Disposition: Home Attending Physician: Lisbet Qureshi MD Vital Signs No data available for this section Problem List Condition Effective Dates Status Health [...]
--- OUTSIDE RECORDS SUMMARY | 2018-07-22 18:04 | XMS REPORT | Summary of Care ---
Author Author [facility] Organization [facility] Address Unknown Phone Unavailable Encounter ERIK Tee(ALLAN) [id number] Date(s): 05/22/16 - 05/22/16 [facility] [address] [place] [address]- Discharge Diagnosis: Cough Discharge Diagnosis: Acute sinusitis Discharge Disposition: Home or Self Care Attending Physician: Diony Patel MD Vital Signs 1 2 3 Most recent to oldest [Reference Range]: 172.72 cm (05/22/16 7:52 AM) Height 98.2 DegF (05/22/16 11:33 AM) 98.0 DegF (05/22/16 7:52 AM) Temperature Oral [96.4-99.1 DegF] 128/77 mmHg (05/22/16 11:33 AM) 127/81 mmHg (05/22/16 10:15 AM) 135/75 mmHg (05/22/16 7:52 AM) Blood Pressure [90-140/60-90 mmHg] 18 BRMIN (05/22/16 11:33 AM) 18 BRMIN (05/22/16 10:15 AM) 16 BRMIN (05/22/16 7:52 AM) Respiratory Rate [14-20 BRMIN] 70 bpm (05/22/16 11:33 AM) 69 bpm (05/22/16 10:15 AM) 69 bpm (05/22/16 7:52 AM) Peripheral Pulse Rate [60-100 bpm] 81.091 kg (05/22/16 7:52 AM) Weight 27.18 m2 (05/22/16 7:52 AM) Body Mass Index Problem List Condition Effective Dates Status Health Status Informant Anxiety(Confirmed) Resolved Allergies, Adverse Reactions, Alerts Substance Reaction Severity Status iodine Active Medications amoxicillin 875 mg oral tablet 875 mg=1 tab, PO, Q12H, X 10 day, # 20 tab, 0 Refill(s) Start Date: 05/22/16 Stop Date: 06/01/16 Status: Ordered Results ELECTROLYTES Most recent to 1 oldest [Reference Range]: Sodium Lvl [135-145 143 mEq/L mEq/L] (05/22/16 10:00 AM) Potassium Lvl 4.3 mEq/L 1 [3.5-5.1 mEq/L] (05/22/16 10:00 AM) Chloride Lvl [95-109 109 mEq/L mEq/L] (05/22/16 10:00 AM) CO2 [24-32 mEq/L] 29 mEq/L (05/22/16 10:00 AM) AGAP [10.0-20.0 9.3 mEq/L mEq/L] *LOW* (05/22/16 10:00 AM) 1Result Comment: Specimen hemolyzed, suggest recollect @05/22/2016 10:34 -[facility] CHEM PANEL Most recent to 1 oldest [Reference Range]: Creatinine Lvl 1.08 mg/dL [0.50-1.40 mg/dL] (05/22/16 10:00 AM) eGFR 103 mL/min/1.73m2 1 *NA* (05/22/16 10:00 AM) BUN [7-22 mg/dL] 11 mg/dL (05/22/16 10:00 AM) B/C Ratio [6-25] 10 (05/22/16 10:00 AM) Glucose Lvl [70-99 83 mg/dL mg/dL] (05/22/16 10:00 AM) Total Protein 7.1 g/dL [6.4-8.4 g/dL] (05/22/16 10:00 AM) Albumin Lvl [3.5-5.0 3.9 g/dL g/dL] (05/22/16 10:00 AM) Globulin [2.7-4.2 3.2 g/dL g/dL] (05/22/16 10:00 AM) A/G Ratio [0.7-1.6] 1.2 (05/22/16 10:00 AM) Calcium Lvl 8.5 mg/dL [8.5-10.5 mg/dL] (05/22/16 10:00 AM) ALT [0-65 unit/L] 25 unit/L (05/22/16 10:00 AM) AST [0-37 unit/L] 29 unit/L (05/22/16 10:00 AM) Alk Phos [39-136 41 unit/L unit/L] (05/22/16 10:00 AM) Bili Total [0.2-1.3 0.8 mg/dL mg/dL] (05/22/16 10:00 AM) 1Result Comment: The eGFR is calculated [...] Most recent to 1 oldest [Reference Range]: Troponin-I <0.02 ng/mL [0.00-0.40 ng/mL] (05/22/16 10:00 AM) HEMATOLOGY Most recent to 1 oldest [Reference Range]: WBC [3.7-10.4 K/CMM] 6.1 K/CMM (05/22/16 10:00 AM) RBC [4.70-6.10 5.32 M/CMM M/CMM] (05/22/16 10:00 AM) Hgb [14.0-18.0 g/dL] 14.5 g/dL (05/22/16 10:00 AM) Hct [42.0-54.0 %] 43.3 % (05/22/16 10:00 AM) MCV [80.0-94.0 fL] 81.4 fL (05/22/16 10:00 AM) MCH [27.0-31.0 pg] 27.3 pg (05/22/16 10:00 AM) MCHC [32.0-36.0 33.5 g/dL g/dL] (05/22/16 10:00 AM) RDW [11.5-14.5 %] 14.2 % (05/22/16 10:00 AM) Platelet [133-450 234 K/CMM K/CMM] (05/22/16 10:00 AM) MPV [7.4-10.4 fL] 8.7 fL (05/22/16 10:00 AM) Segs [45.0-75.0 %] 66.8 % (05/22/16 10:00 AM) Lymphocytes 19.0 % [20.0-40.0 %] *LOW* (05/22/16 10:00 AM) Monocytes [2.0-12.0 10.3 % %] (05/22/16 10:00 AM) Eosinophils [0.0-4.0 3.6 % %] (05/22/16 10:00 AM) Basophils [0.0-1.0 0.3 % %] (05/22/16 10:00 AM) Segs-Bands # 4.1 K/CMM [1.5-8.1 K/CMM] (05/22/16 10:00 AM) Lymphocytes # 1.2 K/CMM [1.0-5.5 K/CMM] (05/22/16 10:00 AM) Monocytes # [0.0-0.8 0.6 K/CMM K/CMM] (05/22/16 10:00 AM) Eosinophils # 0.2 K/CMM [0.0-0.5 K/CMM] (05/22/16 10:00 AM) Immunizations No data available for this [...]
--- OUTSIDE RECORDS SUMMARY | 2018-07-22 18:04 | XMS REPORT | Summary of Care ---
Author Author [facility] Organization [facility] Address Unknown Phone Unavailable Care Team Providers Care Regional Sales Associate Name Role Phone NONE, None PCP Unavailable Encounter HQ Adinarubaireneamada(FIN) [phone] Date(s): 08/20/15 - 08/20/15 [facility] [address] [place] [address]- [phone] Discharge Diagnosis: Chest pain, unspecified Discharge Disposition: Home Attending Physician: Arlet Cast DO Vital Signs 1 2 3 Most recent to oldest [Reference Range]: 172.72 cm (08/20/15 12:57 AM) Height 98.1 DegF (08/20/15 1:16 AM) 97.4 DegF (08/20/15 12:57 AM) Temperature Oral [96.4-99.1 DegF] 111/79 mmHg (08/20/15 4:09 AM) 144/98 mmHg *HI* (08/20/15 12:57 AM) Blood Pressure [90-140/60-90 mmHg] 145 mmHg *HI* (08/20/15 1:16 AM) Systolic Blood Pressure [90-140 mmHg] 85 mmHg (08/20/15 1:16 AM) Diastolic Blood Pressure [60-90 mmHg] 16 BRMIN (08/20/15 4:09 AM) 17 BRMIN (08/20/15 1:16 AM) 18 BRMIN (08/20/15 12:57 AM) Respiratory Rate [14-20 BRMIN] 58 bpm *LOW* (08/20/15 4:09 AM) 79 bpm (08/20/15 1:16 AM) 74 bpm (08/20/15 12:57 AM) Peripheral Pulse Rate [60-100 bpm] 81.364 kg (08/20/15 12:57 AM) Weight 27.27 m2 (08/20/15 12:57 AM) Body Mass Index Problem List Condition Effective Dates Status Health Status Informant Anxiety(Confirmed) Resolved Allergies, Adverse Reactions, Alerts Substance Reaction Severity Status iodine Active Medications Saline Flush 0.9% 10 mL, Route: IVP, Drug Form: INJ, Dosing Weight 81.364, kg, PRN, PRN Line Flush , Start date: 08/20/15 1:01:00, Duration: 30 day, Stop date: 09/19/15 1:00:00 Notes: (Same as: BD Posiflush) Start Date: 08/20/15 Stop Date: 08/20/15 Status: Discontinued Results ELECTROLYTES Most recent to 1 oldest [Reference Range]: Sodium Lvl [135-145 135 mEq/L mEq/L] (08/20/15 1:29 AM) Potassium Lvl 3.8 mEq/L [3.5-5.1 mEq/L] (08/20/15 1:29 AM) Chloride Lvl [95-109 101 mEq/L mEq/L] (08/20/15 1:29 AM) CO2 [24-32 mEq/L] 26 mEq/L (08/20/15 1:29 AM) AGAP [10.0-20.0 11.8 mEq/L mEq/L] (08/20/15 1:29 AM) CHEM PANEL Most recent to 1 oldest [Reference Range]: Creatinine Lvl 1.35 mg/dL [0.50-1.40 mg/dL] (08/20/15 1:29 AM) eGFR 79 mL/min/1.73m2 1 *NA* (08/20/15 1:29 AM) BUN [7-22 mg/dL] 13 mg/dL (08/20/15 1:29 AM) Glucose Lvl [70-99 93 mg/dL mg/dL] (08/20/15 1:29 AM) Calcium Lvl 9.1 mg/dL [8.5-10.5 mg/dL] (08/20/15 1:29 AM) 1Result Comment: The eGFR is calculated [...] 1 oldest [Reference Range]: Total CK [12-191 711 unit/L unit/L] *HI* (08/20/15 1:29 AM) CK MB [0.5-3.6 3.6 ng/mL ng/mL] (08/20/15 1:29 AM) CK MB Index 0.5 [0.0-2.5] (08/20/15 1:29 AM) Troponin-I <0.02 ng/mL [0.00-0.40 ng/mL] (08/20/15 1:29 AM) HEMATOLOGY Most recent to 1 oldest [Reference Range]: WBC [3.7-10.4 K/CMM] 7.0 K/CMM (08/20/15 1:29 AM) RBC [4.70-6.10 6.06 M/CMM M/CMM] (08/20/15 1:29 AM) Hgb [14.0-18.0 g/dL] 15.9 g/dL (08/20/15 1:29 AM) Hct [42.0-54.0 %] 49.0 % (08/20/15 1:29 AM) MCV [80.0-94.0 fL] 80.9 fL (08/20/15 1:29 AM) MCH [27.0-31.0 pg] 26.3 pg *LOW* (08/20/15:29 AM) MCHC [32.0-36.0 32.5 g/dL g/dL] (08/20/15 1:29 AM) RDW [11.5-14.5 %] 14.3 % (08/20/15 1:29 AM) Platelet [133-450 253 K/CMM K/CMM] (08/20/15 1:29 AM) MPV [7.4-10.4 fL] 9.0 fL (08/20/15 1:29 AM) Segs [45.0-75.0 %] 45.3 % (08/20/15 1:29 AM) Lymphocytes 31.7 % [20.0-40.0 %] (08/20/15 1:29 AM) Monocytes [2.0-12.0 16.0 % %] *HI* (08/20/15 1:29 AM) Eosinophils [0.0-4.0 6.3 % %] *HI* (08/20/15 1:29 AM) Basophils [0.0-1.0 0.7 % %] (08/20/15 1:29 AM) Segs-Bands # 3.2 K/CMM [1.5-8.1 K/CMM] (08/20/15 1:29 AM) Lymphocytes # 2.2 K/CMM [1.0-5.5 K/CMM] (08/20/15 1:29 AM) Monocytes # [0.0-0.8 1.1 K/CMM K/CMM] *HI* (08/20/15 1:29 AM) Eosinophils # 0.4 K/CMM [0.0-0.5 K/CMM] (08/20/15 1:29 AM) Basophils # [0.0-0.2 0.1 K/CMM K/CMM] (08/20/15 1:29 AM) Immunizations No data available for this section Procedures Procedure Date Related Diagnosis Body Site Appendectomy 2013 Social History Social History Type Response Substance Abuse Use: Past. Type: Marijuana. Recreational Drug Route: Inhaled. Alcohol Current, Type Beer. Frequency: 1-2 times per year. Previous treatment: None. Smoking Status Former smoker; Exposure to Tobacco Smoke None; Cigarette Smoking Last 365 Days No; Reg Smoking Cessation Counseling No Assessment and Plan No data available for this section
--- OUTSIDE RECORDS SUMMARY | 2018-07-22 18:04 | XMS REPORT | Summary of Care ---
Author Author [facility] Organization [facility] Address Unknown Phone Unavailable Care Team Providers Care Associate Professor Of Law Name Role Phone NONE, None PCP Unavailable Encounter HQ Cyndintr_patrice(FIN) [phone] Date(s): 02/03/16 - 02/03/16 [facility] [address] [place], [place] [address]- [phone] Discharge Diagnosis: Acute epigastric pain Discharge Disposition: Home Attending Physician: David Verduzco MD Vital Signs Most recent to 1 oldest [Reference Range]: Height 172.72 cm (02/03/16 4:45 PM) Temperature Oral 98.3 DegF [96.4-99.1 DegF] (02/03/16 4:45 PM) Blood Pressure 134/77 mmHg [90-140/60-90 mmHg] (02/03/16 4:45 PM) Respiratory Rate 18 BRMIN [14-20 BRMIN] (02/03/16 4:45 PM) Peripheral Pulse 71 bpm Rate [60-100 bpm] (02/03/16 4:45 PM) Weight 85 kg (02/03/16 4:45 PM) Body Mass Index 28.49 m2 (02/03/16 4:45 PM) Problem List Condition Effective Dates Status Health Status Informant Anxiety(Confirmed) Resolved Allergies, Adverse Reactions, Alerts Substance Reaction Severity Status iodine Active Medications morphine Sulfate 2 mg, 1 mL, Route: IVP, Drug form: INJ, ONCE, Dosing Weight 85, kg, Priority: ST AT, Start date: 02/03/16 16:50:00 CDT, Stop date: 02/03/16 16:50:00 CDT Notes: (Same as:MORPhine Sulfate) Start Date: 02/03/16 Stop Date: 02/03/16 Status: Completed NS (Bolus) IV 500 mL, 500 ml/hr, Infuse Over: 1 hr, Route: IV, 500, Drug form: INJ, ONCE, Prio rity: STAT, Dosing Weight 85 kg, Start date: 02/03/16 16:50:00 CDT, Duration: 1 doses or times, Stop date: 02/03/16 16:50:00 CDT Start Date: 02/03/16 Stop Date: 02/03/16 Status: Completed ondansetron 4 mg, 2 mL, Route: IVP, Drug form: INJ, ONCE, Dosing Weight 85, kg, Priority: ST AT, Start date: 02/03/16 16:50:00 CDT, Stop date: 02/03/16 16:50:00 CDT Notes: (Same as: Zofran) MEDICATION WASTE Product Size: 4 mgProduct Was miguelina: ___ mg Start Date: 02/03/16 Stop Date: 02/03/16 Status: Completed Saline Flush 0.9% 10 mL, Route: IVP, Drug Form: INJ, Dosing Weight 85, kg, PRN, PRN Line Flush, St art date: 02/03/16 16:50:00 CDT, Duration: 1 day, Stop date: 02/04/16 16:49:00 C DT Notes: (Same as: BD Posiflush) Start Date: 02/03/16 Stop Date: 02/03/16 Status: Discontinued Results ELECTROLYTES Most recent to 1 oldest [Reference Range]: Sodium Lvl [135-145 142 mEq/L mEq/L] (02/03/16 4:56 PM) Potassium Lvl 3.5 mEq/L [3.5-5.1 mEq/L] (02/03/16 4:56 PM) Chloride Lvl [95-109 107 mEq/L mEq/L] (02/03/16 4:56 PM) CO2 [24-32 mEq/L] 29 mEq/L (02/03/16 4:56 PM) AGAP [10.0-20.0 9.5 mEq/L mEq/L] *LOW* (02/03/16 4:56 PM) CHEM PANEL Most recent to 1 oldest [Reference Range]: Creatinine Lvl 1.25 mg/dL [0.50-1.40 mg/dL] (02/03/16 4:56 PM) eGFR 87 mL/min/1.73m2 1 *NA* (02/03/16 4:56 PM) BUN [7-22 mg/dL] 13 mg/dL (02/03/16 4:56 PM) B/C Ratio [6-25] 10 (02/03/16 4:56 PM) Glucose Lvl [70-99 99 mg/dL mg/dL] (02/03/16 4:56 PM) Total Protein 7.8 g/dL [6.4-8.4 g/dL] (02/03/16 4:56 PM) Albumin Lvl [3.5-5.0 4.0 g/dL g/dL] (02/03/16 4:56 PM) Globulin [2.0-4.0 3.8 g/dL g/dL] (02/03/16 4:56 PM) A/G Ratio [0.7-1.6] 1.1 (02/03/16 4:56 PM) Calcium Lvl 9.2 mg/dL [8.5-10.5 mg/dL] (02/03/16 4:56 PM) ALT [0-65 unit/L] 29 unit/L (02/03/16 4:56 PM) AST [0-37 unit/L] 14 unit/L (02/03/16 4:56 PM) Alk Phos [39-136 49 unit/L unit/L] (02/03/16 4:56 PM) Bili Total [0.2-1.3 0.6 mg/dL mg/dL] (02/03/16 4:56 PM) Lipase Lvl [73-393 208 unit/L unit/L] (02/03/16 4:56 PM) 1Result Comment: The eGFR is calculated [...] 1 oldest [Reference Range]: WBC [3.7-10.4 K/CMM] 6.2 K/CMM (02/03/16 4:56 PM) RBC [4.70-6.10 6.01 M/CMM M/CMM] (02/03/16 4:56 PM) Hgb [14.0-18.0 g/dL] 15.4 g/dL (02/03/16 4:56 PM) Hct [42.0-54.0 %] 48.8 % (02/03/16 4:56 PM) MCV [80.0-94.0 fL] 81.2 fL (02/03/16 4:56 PM) MCH [27.0-31.0 pg] 25.6 pg *LOW* (02/03/16 4:56 PM) MCHC [32.0-36.0 31.5 g/dL g/dL] *LOW* (02/03/16 4:56 PM) RDW [11.5-14.5 %] 13.3 % (02/03/16 4:56 PM) Platelet [133-450 231 K/CMM K/CMM] (02/03/16 4:56 PM) MPV [7.4-10.4 fL] 8.9 fL (02/03/16 4:56 PM) Segs [45.0-75.0 %] 57.1 % (02/03/16 4:56 PM) Lymphocytes 24.7 % [20.0-40.0 %] (02/03/16 4:56 PM) Monocytes [2.0-12.0 10.8 % %] (02/03/16 4:56 PM) Eosinophils [0.0-4.0 6.6 % %] *HI* (02/03/16 4:56 PM) Basophils [0.0-1.0 0.8 % %] (02/03/16 4:56 PM) Segs-Bands # 3.6 K/CMM [1.5-8.1 K/CMM] (02/03/16 4:56 PM) Lymphocytes # 1.5 K/CMM [1.0-5.5 K/CMM] (02/03/16 4:56 PM) Monocytes # [0.0-0.8 0.7 K/CMM K/CMM] (02/03/16 4:56 PM) Eosinophils # 0.4 K/CMM [0.0-0.5 K/CMM] (02/03/16 4:56 PM) Immunizations No data available for this [...]
--- OUTSIDE RECORDS SUMMARY | 2018-07-22 18:05 | XMS REPORT | Summary of Care ---
Author Author [facility] Organization [facility] Address Unknown Phone Unavailable Encounter HQ Randal(FIN) [id number] Date(s): 03/31/18 - 03/31/18 [facility] [address] [place] [address]- [phone] Encounter Diagnosis Palpitation (Discharge Diagnosis) - 03/31/18 Discharge Disposition: Home or Self Care Attending Physician: Link Hogue MD Vital Signs Most recent to 1 oldest [Reference Range]: Height 172.72 cm (03/31/18 10:42 AM) Temperature Oral 97.1 DegF [96.4-99.1 DegF] (03/31/18 10:42 AM) Blood Pressure 115/68 mmHg [90-140/60-90 mmHg] (03/31/18 10:42 AM) Respiratory Rate 18 BRMIN [14-20 BRMIN] (03/31/18 10:42 AM) Peripheral Pulse 72 bpm Rate [60-100 bpm] (03/31/18 10:42 AM) Weight 75 kg (03/31/18 10:42 AM) Body Mass Index 25.14 m2 (03/31/18 10:42 AM) Problem List Condition Effective Dates Status Health Status Informant Anxiety(Confirmed) Resolved Allergies, Adverse Reactions, Alerts Substance Reaction Severity Status Toradol Active Stadol Active iodine Active Medications No data available for this section Results ELECTROLYTES Most recent to 1 oldest [Reference Range]: Sodium Lvl [135-145 143 mEq/L mEq/L] (03/31/18 10:53 AM) Potassium Lvl 3.6 mEq/L [3.5-5.1 mEq/L] (03/31/18 10:53 AM) Chloride Lvl [95-109 108 mEq/L mEq/L] (03/31/18 10:53 AM) CO2 [24-32 mEq/L] 26 mEq/L (03/31/18 10:53 AM) AGAP [10.0-20.0 12.6 mEq/L mEq/L] (03/31/18 10:53 AM) CHEM PANEL Most recent to 1 oldest [Reference Range]: Creatinine Lvl 1.31 mg/dL [0.50-1.40 mg/dL] (03/31/18 10:53 AM) eGFR 70 mL/min/1.73m2 1 *NA* (03/31/18 10:53 AM) BUN [7-22 mg/dL] 11 mg/dL (03/31/18 10:53 AM) B/C Ratio [6-25] 8 (03/31/18 10:53 AM) Glucose Lvl [70-99 96 mg/dL mg/dL] (03/31/18 10:53 AM) Total Protein 8.1 g/dL [6.4-8.4 g/dL] (03/31/18 10:53 AM) Albumin Lvl [3.5-5.0 4.3 g/dL g/dL] (03/31/18 10:53 AM) Globulin [2.7-4.2 3.8 g/dL g/dL] (03/31/18 10:53 AM) A/G Ratio [0.7-1.6] 1.1 (03/31/18 10:53 AM) Calcium Lvl 8.8 mg/dL [8.5-10.5 mg/dL] (03/31/18 10:53 AM) Magnesium Lvl 2.0 mg/dL [1.8-2.4 mg/dL] (03/31/18 10:53 AM) ALT [0-65 unit/L] 27 unit/L (03/31/18 10:53 AM) AST [0-37 unit/L] 25 unit/L (03/31/18 10:53 AM) Alk Phos [39-136 53 unit/L unit/L] (03/31/18 10:53 AM) Bili Total [0.2-1.3 1.2 mg/dL mg/dL] (03/31/18 10:53 AM) 1Result Comment: The eGFR is calculated [...] 1 oldest [Reference Range]: Total CK [12-191 693 unit/L unit/L] *HI* (03/31/18 10:53 AM) CK MB [0.5-3.6 3.0 ng/mL ng/mL] (03/31/18 10:53 AM) CK MB Index 0.4 [0.0-2.5] (03/31/18 10:53 AM) Troponin-I <0.02 ng/mL [0.00-0.40 ng/mL] (03/31/18 10:53 AM) DRUG SCREEN Most recent to 1 oldest [Reference Range]: U Amph Scr Negative [Negative] *NA* (03/31/18 11:08 AM) U Elma Scr Negative [Negative] *NA* (03/31/18 11:08 AM) U Benzodia Scr Negative [Negative] *NA* (03/31/18 11:08 AM) U Cocaine Scr Negative [Negative] *NA* (03/31/18 11:08 AM) U Opiate Scr Negative [Negative] *NA* (03/31/18 11:08 AM) U Phencyc Scr Negative [Negative] *NA* (03/31/18 11:08 AM) U Cannab Scr Negative [Negative] *NA* (03/31/18 11:08 AM) UDS Note See Note (03/31/18 11:08 AM) URINE AND STOOL Most recent to 1 oldest [Reference Range]: UA Turbidity [Clear] Clear (03/31/18 11:08 AM) UA Color [Yellow] Yellow *NA* (03/31/18 11:08 AM) UA pH [5.0-8.0] 7.0 (03/31/18 11:08 AM) UA Spec Grav 1.025 [<=1.030] (03/31/18 11:08 AM) UA Glucose [Negative Negative mg/dL mg/dL] *NA* (03/31/18 11:08 AM) UA Blood [Negative] Negative (03/31/18 11:08 AM) UA Ketones [Negative Negative mg/dL mg/dL] *NA* (03/31/18 11:08 AM) UA Protein [Negative Negative mg/dL mg/dL] (03/31/18 11:08 AM) UA Urobilinogen 2.0 mg/dL [0.1-1.0 mg/dL] *HI* (03/31/18 11:08 AM) UA Bili [Negative] Negative *NA* (03/31/18 11:08 AM) UA Leuk Est Negative [Negative] (03/31/18 11:08 AM) UA Nitrite Negative [Negative] (03/31/18 11:08 AM) UA WBC [0-5 /HPF] <1 /HPF (03/31/18 11:08 AM) UA RBC [0-2 /HPF] 1 /HPF (03/31/18 11:08 AM) UA Sq Epi None Seen *NA* (03/31/18 11:08 AM) UA Mucus [None Seen Few /LPF /LPF] *NA* (03/31/18 11:08 AM) HEMATOLOGY Most recent to 1 oldest [Reference Range]: WBC [3.7-10.4 K/CMM] 5.8 K/CMM (03/31/18 10:53 AM) RBC [4.70-6.10 5.85 M/CMM M/CMM] (03/31/18 10:53 AM) Hgb [14.0-18.0 g/dL] 15.6 g/dL (03/31/18 10:53 AM) Hct [42.0-54.0 %] 47.7 % (03/31/18 10:53 AM) MCV [80.0-94.0 fL] 81.6 fL (03/31/18 10:53 AM) MCH [27.0-31.0 pg] 26.7 pg *LOW* (03/31/18 10:53 AM) MCHC [32.0-36.0 32.7 g/dL g/dL] (03/31/18 10:53 AM) RDW [11.5-14.5 %] 14.4 % (03/31/18 10:53 AM) MPV [7.4-10.4 fL] 9.4 fL (03/31/18 10:53 AM) Platelet [133-450 246 K/CMM K/CMM] (03/31/18 10:53 AM) Segs [45.0-75.0 %] 65.1 % (03/31/18 10:53 AM) Lymphocytes 21.7 % [20.0-40.0 %] (03/31/18 10:53 AM) Monocytes [2.0-12.0 10.1 % %] (03/31/18 10:53 AM) Eosinophils [0.0-4.0 2.6 % %] (03/31/18 10:53 AM) Basophils [0.0-1.0 0.5 % %] (03/31/18 10:53 AM) Segs-Bands # 3.8 K/CMM [1.5-8.1 K/CMM] (03/31/18 10:53 AM) Lymphocytes # 1.3 K/CMM [1.0-5.5 K/CMM] (03/31/18 10:53 AM) Monocytes # [0.0-0.8 0.6 K/CMM K/CMM] (03/31/18 10:53 AM) Eosinophils # 0.2 K/CMM [0.0-0.5 K/CMM] (03/31/18 10:53 AM) PT [12.0-14.7 14.3 seconds seconds] (03/31/18 10:53 AM) INR [0.85-1.17] 1.11 (03/31/18 10:53 AM) PTT [22.9-35.8 27.3 seconds seconds] (03/31/18 10:53 AM) Immunizations No data available for this section Procedures Procedure Date Related Diagnosis Body Site Status Appendectomy 2013 Completed Social History Social History Type Response Substance Abuse Use: Past. Type: Marijuana. Recreational Drug Route: Inhaled. Alcohol Past, Type Beer. Frequency: 1-2 times per year. Previous treatment: None.1 Smoking Status Former smoker; Type: Cigarettes; Ready to change: No; Concerns about tobacco use in household: No; Exposure to Tobacco Smoke None; Cigarette Smoking Last 365 Days No; Reg Smoking Cessation Counseling No; Tobacco use per day: 10; Started at age: 16.0; Stopped at age: 32; entered on: 03/31/18 1pt states non-drinker. Assessment and Plan No data available for this section
== END 2018-07-22 18:29 | disposition home or self-care (01) ==
LOC: FSED 17:58
DX: K62.89 Other specified diseases of anus and rectum (principal)
CPT/HCPCS: 99283